=== PATIENT | female | born 1945 | race Caucasian/White ===

== ENCOUNTER → 2019-09-06 10:00 | Outpatient (BNVA) | payer MEDICARE, OTHER, SELFPAY | PROVIDERS: Family Provider Family Medicine; PCP Family Medicine; Visit Provider Nurse Practitioner Family | DX: Z20.828 Contact with and (suspected) exposure to other viral communicable diseases (principal); R68.89 Other general symptoms and signs; W57.XXXA Bitten or stung by nonvenomous insect and other nonvenomous arthropods, initial encounter | CPT/HCPCS: 87400; 87635 ==

== ENCOUNTER → 2020-03-20 14:00 | Outpatient (BNVA) | payer MEDICARE, OTHER, SELFPAY | PROVIDERS: Family Provider Family Medicine; PCP Family Medicine; Visit Provider Family Medicine | DX: E03.9 Hypothyroidism, unspecified (principal); G43.909 Migraine, unspecified, not intractable, without status migrainosus; F33.0 Major depressive disorder, recurrent, mild; R41.840 Attention and concentration deficit; Z13.6 Encounter for screening for cardiovascular disorders; Z13.1 Encounter for screening for diabetes mellitus | CPT/HCPCS: 80053; 80061; 84439; 84443; 84481 ==

== ENCOUNTER 2020-08-05 02:53 | Emergency (ER) | payer MEDICARE, OTHER, SELFPAY ==
[2020-08-05 03:20] VITALS: BP 153/90; PULSE 69; RESP 16; TEMP 36.5; O2SAT 96; BMI 36.0
--- NOTE | 2020-08-05 03:56 | XRR_ITS ---
PROCEDURE INFORMATION: Exam: XR Chest Exam date and time: 08/05/2020 4:39 AM Age: 75 years old Clinical indication: Left-sided chest pain; Patient HX: C/O L sided chest/rib pain; Additional info: Left side cp TECHNIQUE: Imaging protocol: XR of the chest. Views: 1 view. COMPARISON: No relevant prior studies available. FINDINGS: Lungs: Unremarkable. No consolidation. Pleural spaces: Unremarkable. No pleural effusion. No pneumothorax. Heart/Mediastinum: Unremarkable. No cardiomegaly. Bones/joints: Unremarkable. XR/XR chest 1V portable [id number] IMPRESSION: No acute findings.
--- NOTE | 2020-08-05 03:58 | ECG_ITS ---
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
[2020-08-05 05:22] VITALS: BP 166/87; PULSE 82; RESP 18; TEMP 36.6; O2SAT 97
[2020-08-05 05:25] LABS: Basophils # 0.1 10^3/uL (0.0-0.1); Basophils % 0.7 %; Eosinophils # 0.1 10^3/uL (0.0-0.8); Eosinophils % 0.9 %; Hematocrit 43.7 % (37.0-47.0); Hemoglobin 14.3 g/dL (11.5-15.3); Lymphocytes # 4.4 10^3/uL (0.8-4.8); Lymphocytes % 40.4 %; Mean Corpuscular HGB Conc 32.7 g/dL (30.0-36.0); Mean Corpuscular Hemoglobin 30.4 pg (28.0-34.0); Mean Platelet Volume 10.4 fL (7.4-10.4); Monocytes # 0.9 10^3/uL (0.2-0.9); Monocytes % 8.3 %; Neutrophils # 5.36 10^3/uL (1.8-7.7); Neutrophils % 49.5 %; Nucleated Red Blood Cells % 0 %; Platelet Count 394 10^3/cmm (130-400); Red Cell Distribution Width 13.1 % (12.1-15.1); White Blood Count 10.8 10^3/uL (4.0-10.0)
[2020-08-05 05:45] LABS: Troponin(5th) Baseline 6 ng/L (0-10)
[2020-08-05 05:50] LABS: Alanine Aminotransferase 13 U/L (0-33); Albumin Level 4.1 g/dL (3.5-5.2); Alkaline Phosphatase 103 IU/L (35-105); Aspartate Amino Transferase 22 U/L (0-32); Blood Urea Nitrogen 16 mg/dL (8-23); Calcium 8.8 mg/dL (8.5-10.5); Carbon Dioxide 25 mmol/L (22-29); Chloride 105 mmol/L (98-107); Globulin 2.7 g/dL (1.3-4.6); Glucose 82 mg/dL (65-115); NT Pro B Type Natriuretic Pept 183 pg/mL (0-125); Osmolality Calculated 292 mOsm/kg (285-295); Sodium 141 mmol/L (136-145); Total Bilirubin 0.5 mg/dL (0.15-1.2); Total Protein 6.8 g/dL (6.6-8.7)
[2020-08-05 05:53] LABS: Anion Gap 15.3 (5-19); Potassium 4.3 mmol/L (3.5-5.1)
--- NOTE | 2020-08-05 05:58 | ECG_ITS ---
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
[2020-08-05 06:10] LABS: D Dimer 0.42 ug/mIFEU (0-0.59)
--- NOTE | 2020-08-05 06:28 | ED_ITS ---
HPI - General Adult General: Chief complaint: General Medical Stated complaint: LEFT SIDED PAIN UNDER RIBS Time Seen by Provider: 08/05/20 03:34 History of Present Illness: HPI narrative: 75-year-old female has had pain in the left side of her rib cage for the last 10 days or so. She was seen by her PCP and placed on steroids and muscle relaxers. These seem to not help. She also had a deep tissue massage that did not seem to help either. She is not short of breath, but has pain when she takes a deep breath. Her pain is positional. She feels it worse when she lies down at night to try to sleep. She states the pain is very episodic as well. Onset (ago): day(s) (10) Location: chest Radiation: back Severity: moderate Quality: sharp Pain Consistency: intermittent Relieving factors: none Exacerbating factors: movement Associated symptoms: Reports chest pain and cough; Deny confusion, dyspnea, fevers/chills, nausea, rash, palpitations, short of breath or vomiting Review of Systems Const: Denies: fever(s) Eyes: Denies: change in vision Card: Reports: chest pain; Denies: palpitations Resp: Reports: non-productive cough; Denies: dyspnea GI: Denies: nausea or vomiting Skin/Breast: Denies: rash Neuro: Denies: confusion PFSH ED PFSH: Medical History Depression Migraines SVT (supraventricular tachycardia) Varicose veins of bilateral lower extremities with other complications Surgical History H/O oral surgery S/P hysterectomy S/P tonsillectomy Family History Other CHF (congestive heart failure) Dementia Depression Stroke Social History Smoking and tobacco status: former smoker Quit status (tobacco): has quit using tobacco Second hand smoke exposure: No Alcohol intake: never Lives independently: Yes Household members: family Housing: House service: No Current gender identity: Female Special brent needs: No Female Reproductive History: Spontaneous abortions: No Physical Exam Const: GENERAL APPEARANCE: well developed ORIENTATION/CONSCIOUSNESS: Yes oriented to person, Yes oriented to place and Yes oriented to time HENMT: COMMON NORMALS: normocephalic, external ears normal and Normal external nose present HEAD & SCALP: normocephalic FACE & SINUS: normal facial exam NOSE: Normal external nose present and No nasal discharge present EXTERNAL EAR: Yes external ears normal MOUTH: tongue normal TEETH & GINGIVA: no abnormal tooth and associated gingiva THROAT: posterior oropharynx normal; no peritonsillar mass Eye: COMMON NORMALS: Equal, round and reactive pupils present, EOMs intact bilaterally and conjunctivae normal EYELID: eyelids normal CONJUNCTIVA: Y es conjunctivae normal PUPIL: Yes Equal, round and reactive pupils present Neck/C-Spine: GENERAL: No tracheal deviation CERVICAL SPINE: No Cervical spine tenderness Chest: COMMONS NORMALS: normal inspection of the chest CHEST: Yes tenderness (focal inferior rib 9-10 on left) Resp: COMMON NORMALS: clear to auscultation bilaterally EFFORT & INSPECTION: No tachypneic, No respiratory distress, No retractions, No uses accessory muscles and No tracheal deviation AUSCULTATION: clear to auscultation bilaterally, no rhonchi, no wheezes and lung sounds not diminished Cardio: COMMON NORMALS: regular rate and regular rhythm RATE: regular rate RHYTHM: regular rhythm HEART SOUNDS: no murmurs PERIPHERAL PULSES: radial pulses present GI: INSPECTION: No abdominal distension AUSCULTATION: No Hyperactive bowel sounds present and No Hypoactive bowel sounds present PALPATION: No Guarding due to palpation present (GI) and No Rigid due to palpation PERCUSSION: no dullness to percussion and no tympanic to percussion Neuro: SENSORIUM/ORIENTATION: Yes oriented to person, Yes oriented to place and Yes oriented to time Psych: COMMON NORMALS: mental status grossly normal Skin: COMMON NORMALS: no rashes or lesions noted GENERAL SKIN EXAM: no rashes or lesions noted Course Vital Signs: Vital signs: Vital Signs Temperature 97.9 F 08/05/20 05:22 Pulse Rate 82 08/05/20 05:22 Respiratory Rate 18 08/05/20 05:22 Blood Pressure 166/87 08/05/20 05:22 Pulse Oximetry 97 08/05/20 05:22 MDM - General Adult [facility] Narrative: Medical decision making narrative: Hemoglobin 14.3. White blood cell count 10.8 without shift. Troponin is negative. D-dimer is negative. Chest x-ray is normal. We will treat as costochondritis. She already has steroids at home. Will prescribe mild opiate pain reliever in case she needs it to help her rest. She will continue her other medications. Lab Data: Labs: Lab Results 08/05/20 08/05/20 08/05/20 Range/Units 04:55 04:55 04:55 WBC 10.8 H (4.0-10.0) 10^3/ uL RBC 4.70 (4.1-5.3) 10^6/u L Hgb 14.3 (11.5-15.3) g/dL Hct 43.7 (37.0-47.0) % MCV 93.0 (81-99) fL MCH 30.4 (28.0-34.0) pg MCHC 32.7 (30.0-36.0) g/dL RDW 13.1 (12.1-15.1) % Plt Count 394 (130-400) 10^3/c mm MPV 10.4 (7.4-10.4) fL Neut % (Auto) 49.5 % Lymph % (Auto) 40.4 % Hunt % (Auto) 8.3 % Eos % (Auto) 0.9 % Baso % (Auto) 0.7 % Neut # (Auto) 5.36 (1.8-7.7) 10^3/u L Lymph # (Auto) 4.4 (0.8-4.8) 10^3/u L Hunt # (Auto) 0.9 (0.2-0.9) 10^3/u L Eos # (Auto) 0.1 (0.0-0.8) 10^3/u L Baso # (Auto) 0.1 (0.0-0.1) 10^3/u L Nucleated RBC % (a uto) 0 % Nucleated RBCs # 0.0 /100WBC D-Dimer 0.42 (0-0.59) ug/mIFE U Sodium 141 (136-145) mmol/L Potassium 4.3 (3.5-5.1) mmol/L Chloride 105 (98-107) mmol/L Carbon Dioxide 25 (22-29) mmol/L Anion Gap 15.3 (5-19) BUN 16 (8-23) mg/dL Creatinine 0.7 (0.5-0.9) mg/dL GFR Calculation Not Reportable Glucose 82 (65-115) mg/dL Calculated Osmolal ity 292 (285-295) mOsm/k g Calcium 8.8 (8.5-10.5) mg/dL Total Bilirubin 0.5 (0.15-1.2) mg/dL AST 22 (0-32) U/L ALT 13 (0-33) U/L Alkaline Phosphata se 103 (35-105) IU/L Troponin T Baselin e (0-10) ng/L NT-Pro-B Natriuret Pep 183 H (0-125) pg/mL Total Protein 6.8 (6.6-8.7) g/dL Albumin 4.1 (3.5-5.2) g/dL Globulin 2.7 (1.3-4.6) g/dL 08/05/20 Range/Units 04:55 WBC (4.0-10.0) 10^3/ uL RBC (4.1-5.3) 10^6/u L Hgb (11.5-15.3) g/dL Hct (37.0-47.0) % MCV (81-99) fL MCH (28.0-34.0) pg MCHC (30.0-36.0) g/dL RDW (12.1-15.1) % Plt Count (130-400) 10^3/c mm MPV (7.4-10.4) fL Neut % (Auto) % Lymph % (Auto) % Hunt % (Auto) % Eos % (Auto) % Baso % (Auto) % Neut # (Auto) (1.8-7.7) 10^3/u L Lymph # (Auto) (0.8-4.8) 10^3/u L Hunt # (Auto) (0.2-0.9) 10^3/u L Eos # (Auto) (0.0-0.8) 10^3/u L Baso # (Auto) (0.0-0.1) 10^3/u L Nucleated RBC % (a uto) % Nucleated RBCs # /100WBC D-Dimer (0-0.59) ug/mIFE U Sodium (136-145) mmol/L Potassium (3.5-5.1) mmol/L Chloride (98-107) mmol/L Carbon Dioxide (22-29) mmol/L Anion Gap (5-19) BUN (8-23) mg/dL Creatinine (0.5-0.9) mg/dL GFR Calculation Glucose (65-115) mg/dL Calculated Osmolal ity (285-295) mOsm/k g Calcium (8.5-10.5) mg/dL Total Bilirubin (0.15-1.2) mg/dL AST (0-32) U/L ALT (0-33) U/L Alkaline Phosphata se (35-105) IU/L Troponin T Baselin e 6 (0-10) ng/L NT-Pro-B Natriuret Pep (0-125) pg/mL Total Protein (6.6-8.7) g/dL Albumin (3.5-5.2) g/dL Globulin (1.3-4.6) g/dL Discharge Plan Discharge Patient Disposition: Home Clinical Impression: Acute costochondritis Condition: Stable Prescriptions: New hydrocodone-acetaminophen 5-325 mg tablet 1 tab PO Q8H PRN (Reason: pain) Qty: 10 RF: 0 No Action levothyroxine 50 mcg tablet 50 mcg PO DAILY 90 Days Qty: 90 RF: 3 bupropion HCl [Wellbutrin XL] 150 mg tablet extended release 24 hr 150 mg PO QAM 90 Days Qty: 90 RF: 3 sumatriptan succinate [Imitrex] 50 mg tablet 50 mg PO Q2H PRN (Reason: migraine headache) Qty: 9 RF: 2 cetirizine [Zyrtec] 10 mg tablet 10 mg PO DAILY RF: 0 aspirin 81 mg tablet,chewable 81 mg PO BID RF: 0 prednisone 20 mg tablet 20 mg PO DAILY 5 Days Qty: 5 RF: 0 methocarbamol [Robaxin-750] 750 mg tablet 750 mg PO TID 6 Days Qty: 18 RF: 0 Discharge Orders: Discharge ED (Routine); Ordered 08/05/20 Ordered By: Jonh Alcantar Referrals: Kari Lr DO [Primary Care Provider] - (thursday as scheduled) Discharge Diet: Usual diet Discharge Activity: Increase activity as tolerated Patient Instructions: Costochondritis (ED), Opioid Safety Activity Restrictions/Additional Instructions: Return for worsening pain despite treatment, fever greater than 100, cough, sputum production, significant shortness of breath, any other concerns. Coding Level of Care Code ED Etcher Apprentice for Chg 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
[2020-08-05 06:56] VITALS: BP 166/87; PULSE 82; RESP 18; TEMP 36.6; O2SAT 97
== END 2020-08-05 06:56 | disposition home or self-care (01) ==
PROVIDERS: Emergency Provider Emergency Medicine; PCP Family Medicine
DX: M94.0 Chondrocostal junction syndrome [Tietze] (principal); Z79.82 Long term (current) use of aspirin; Z87.891 Personal history of nicotine dependence; R07.9 Chest pain, unspecified
CPT/HCPCS: 36415; 71045; 80053; 83880; 84484; 85025; 85378; 93005; 99283

== ENCOUNTER 2020-08-20 04:39 | Emergency (ER) | payer MEDICARE, OTHER, SELFPAY ==
--- NOTE | 2020-08-20 04:50 | XRR_ITS ---
PROCEDURE INFORMATION: Exam: XR Chest Exam date and time: 08/20/2020 4:52 AM Age: 75 years old Clinical indication: Pain; Left-sided; Additional info: Cp TECHNIQUE: Imaging protocol: XR of the chest. Views: 1 view. COMPARISON: CR XR chest 1V portable [id number] 08/05/2020 4:29 AM FINDINGS: Lungs: Unremarkable. No consolidation. Pleural spaces: Unremarkable. No pleural effusion. No pneumothorax. Heart/Mediastinum: Unremarkable. No cardiomegaly. Bones/joints: Unremarkable. XR/XR chest 1V portable [id number] IMPRESSION: No acute findings.
[2020-08-20 04:51] VITALS: BP 165/99; PULSE 71; RESP 18; TEMP 36.7; O2SAT 96; BMI 36.0
--- NOTE | 2020-08-20 04:51 | ECG_ITS ---
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 Measurements Intervals [place] Rate: 74 P: 14 SC: 182 QRS: 27 QRSD: 96 T: 9 QT: 400 QTc: 445 Interpretive Statements SINUS RHYTHM LOW QRS VOLTAGE IN PRECORDIAL LEADS [QRS DEFLECTION < 1.0 mV IN CHEST LEADS] SEPTAL MYOCARDIAL INFARCTION [40+ ms Q WAVE IN V1/V2], PROBABLY OLD POSSIBLE INFERIOR MYOCARDIAL INFARCTION [30 ms Q WAVE IN II/aVF], PROBABLY OLD Compared to ECG 08/05/2020 06:14:10 Low QRS voltage now present Myocardial infarct finding now present Electronically Signed On 08-21-2020 0:37:51 CDT by Jose Daniel Del Angel M.D. [id number] f
--- NOTE | 2020-08-20 04:57 | ED_ITS ---
HPI - Chest Pain General: Chief Complaint: Chest Pain Stated Complaint: CP Time Seen by Provider: 08/20/20 04:49 History of Present Illness: HPI narrative: 75-year-old female presents with 4 hours of chest discomfort. She was seen 2 weeks ago for similar complaint. At that time, she was found to have a normal troponin, negative D-dimer her chest x-ray was negative at that point as well. She is nauseated with the pain. No position seems to improve it. Her belly is not overly tender, neither is her chest. She is not overly short of breath with it. On further questioning she has multiple other complaints such as not being able to sleep for the past couple of weeks, pain under her left ribs which is on and off for the past 2 to 3 weeks, sore ankles, queasiness at times such as at latter day yesterday morning, etc. MD complaint: chest pain Pertinent past history: other Onset (ago): hour(s) (4) Prior episodes: Yes Onset: during rest and awoke with symptoms Pain location: left chest Pain radiation: none Relieving factors: nothing Exacerbating factors: nothing Associated symptoms: Reports nausea and palpitations; Deny abdominal pain, diaphoresis, dyspnea, fever(s) or vomiting Review of Systems Const: Denies: fever(s) or diaphoresis ENMT: Denies: throat pain Card: Reports: chest pain and palpitations Resp: Denies: dyspnea GI: Reports: nausea; Denies: abdominal pain or vomiting PFS ED PFSH: Medical History Depression Migraines SVT (supraventricular tachycardia) Varicose veins of bilateral lower extremities with other complications Surgical History H/O oral surgery S/P hysterectomy S/P tonsillectomy Family History Other CHF (congestive heart failure) Dementia Depression Stroke Social History Smoking and tobacco status: former smoker Quit status (tobacco): has quit using tobacco Second hand smoke exposure: No Alcohol intake: never Lives independently: Yes Household members: family Housing: House service: No Current gender identity: Female Special brent needs: No Female Reproductive History: Spontaneous abortions: No Physical Exam Const: GENERAL APPEARANCE: well developed ORIENTATION/CONSCIOUSNESS: Yes oriented to person, Yes oriented to place and Yes oriented to time HENMT: COMMON NORMALS: normocephalic, external ears normal and Normal external nose present HEAD & SCALP: normocephalic FACE & SINUS: normal facial exam NOSE: Normal external nose present and No nasal discharge present EXTERNAL EAR: Yes external ears normal Eye: COMMON NORMALS: Equal, round and reactive pupils present, EOMs intact bilaterally and conjunctivae normal EYELID: eyelids normal CONJUNCTIVA: Yes conjunctivae normal PUPIL: Yes Equal, round and reactive pupils present Neck/C-Spine: GENERAL: No tracheal deviation Chest: COMMONS NORMALS: normal inspection of the chest CHEST: No tenderness Resp: COMMON NORMALS: clear to auscultation bilaterally EFFORT & INSPECTION: No tachypneic, No respiratory distress, No retractions, No uses accessory muscles and No tracheal deviation AUSCULTATION: clear to auscultation bilaterally, no rhonchi, no wheezes and lung sounds not diminished Cardio: COMMON NORMALS: regular rate and regular rhythm RATE: regular rate RHYTHM: regular rhythm HEART SOUNDS: no murmurs PERIPHERAL PULSES: radial pulses present GI: INSPECTION: No abdominal distension AUSCULTATION: No Hyperactive bowel sounds present and No Hypoactive bowel sounds present PALPATION: No Guarding due to palpation present (GI) and No Rigid due to palpation PERCUSSION: no dullness to percussion and no tympanic to percussion Neuro: SENSORIUM/ORIENTATION: Yes oriented to person, Yes oriented to place and Yes oriented to time Psych: COMMON NORMALS: mental status grossly normal Skin: COMMON NORMALS: no rashes or lesions noted GENERAL SKIN EXAM: no rashes or lesions noted Course Vital Signs: Vital signs: Vital Signs Temperature 98.1 F 08/20/20 04:51 Pulse Rate 74 08/20/20 05:56 Respiratory Rate 23 H 08/20/20 05:56 Blood Pressure 148/107 08/20/20 05:56 Pulse Oximetry 97 08/20/20 05:56 MDM - Chest Pain MDM Narrative: Medical decision making narrative: This lady has a normal exam. Her pain is not reproducible her EKG shows a sinus rhythm with normal axis and intervals. Her rate is 75. There is no change from 2 weeks ago. There are no acute ST changes. Her chest x-ray is negative. Labs are normal, troponin is 7. It was 6 2 weeks ago. She has had this pain more than 4 hours this evening. Her lipase is normal. GI cocktail seemed to relieve her pain Lab Data: Labs: Lab Results 08/20/20 08/20/20 08/20/20 Range/Units 05:00 05:00 05:00 WBC 8.5 (4.0-10.0) 10^3/ uL RBC 4.60 (4.1-5.3) 10^6/u L Hgb 13.9 (11.5-15.3) g/dL Hct 42.1 (37.0-47.0) % MCV 91.5 (81-99) fL MCH 30.2 (28.0-34.0) pg MCHC 33.0 (30.0-36.0) g/dL RDW 12.8 (12.1-15.1) % Plt Count 340 (130-400) 10^3/c mm MPV 10.4 (7.4-10.4) fL Neut % (Auto) 54.6 % Lymph % (Auto) 32.7 % Major % (Auto) 8.3 % Eos % (Auto) 3.5 % Baso % (Auto) 0.8 % Neut # (Auto) 4.66 (1.8-7.7) 10^3/u L Lymph # (Auto) 2.8 (0.8-4.8) 10^3/u L Major # (Auto) 0.7 (0.2-0.9) 10^3/u L Eos # (Auto) 0.3 (0.0-0.8) 10^3/u L Baso # (Auto) 0.1 (0.0-0.1) 10^3/u L Nucleated RBC % (a uto) 0 % Nucleated RBCs # 0.0 /100WBC Sodium 135 L (136-145) mmol/L Potassium 4.6 (3.5-5.1) mmol/L Chloride 102 (98-107) mmol/L Carbon Dioxide 24 (22-29) mmol/L Anion Gap 13.6 (5-19) BUN 15 (8-23) mg/dL Creatinine 0.9 (0.5-0.9) mg/dL GFR Calculation Not Reportable Glucose 85 (65-115) mg/dL Calculated Osmolal ity 280 L (285-295) mOsm/k g Calcium 9.0 (8.5-10.5) mg/dL Total Bilirubin 0.7 (0.15-1.2) mg/dL AST 29 (0-32) U/L ALT 14 (0-33) U/L Alkaline Phosphata se 97 (35-105) IU/L Creatine Kinase 115 (26-192) U/L Troponin T Baselin e 8 (0-10) ng/L NT-Pro-B Natriuret Pep 58 (0-125) pg/mL Total Protein 6.5 L (6.6-8.7) g/dL Albumin 4.0 (3.5-5.2) g/dL Globulin 2.5 (1.3-4.6) g/dL Lipase 34 (13-60) U/L Discharge Plan Discharge Patient Disposition: Home Clinical Impression: Chest pain Qualifiers: Chest pain type: other chest pain Qualified Code(s): R07.89 - Other chest pain Gastritis Qualifiers: Gastritis type: unspecified gastritis Chronicity: acute Gastritis bleeding: without bleeding Qualified Code(s): K29.00 - Acute gastritis without bleeding Condition: Stable Prescriptions: New Prevacid 30 mg capsule,delayed release(DR/EC) 30 mg PO DAILY Qty: 30 RF: 0 No Action levothyroxine 50 mcg tablet 50 mcg PO DAILY 90 Days Qty: 90 RF: 3 bupropion HCl [Wellbutrin XL] 150 mg tablet extended release 24 hr 150 mg PO QAM 90 Days Qty: 90 RF: 3 sumatriptan succinate [Imitrex] 50 mg tablet 50 mg PO Q2H PRN (Reason: migraine headache) Qty: 9 RF: 2 cetirizine [Zyrtec] 10 mg tablet 10 mg PO DAILY RF: 0 aspirin 81 mg tablet,chewable 81 mg PO BID RF: 0 diclofenac sodium 1 % gel 4 g topical QID Qty: 100 RF: 1 hydrocodone-acetaminophen 5-325 mg tablet 1 tab PO BID PRN (Reason: pain) 7 Days Qty: 14 RF: 0 methocarbamol [Robaxin-750] 750 mg tablet 750 mg PO TID 6 Days Qty: 18 RF: 0 meloxicam 15 mg tablet 15 mg PO DAILY 30 Days Qty: 30 RF: 1 Discharge Orders: Discharge ED (Routine); Ordered 08/20/20 Ordered By: Jonh Alcantar Referrals: Kari Lr DO [Primary Care Provider] - 1-3 days Discharge Diet: Advance as tolerated Discharge Activity: Increase activity as tolerated Patient Instructions: Chest Pain (ED), Gastritis (ED) Activity Restrictions/Additional Instructions: Return for vomiting liquids or medications, worsening pain despite treatment, shortness of breath, other concerning symptoms. Follow-up with your doctor next week. Coding Level of Care Code ED Harpsichord Maker for Chg 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
[2020-08-20 05:09] LABS: Basophils # 0.1 10^3/uL (0.0-0.1); Basophils % 0.8 %; Eosinophils # 0.3 10^3/uL (0.0-0.8); Eosinophils % 3.5 %; Hematocrit 42.1 % (37.0-47.0); Hemoglobin 13.9 g/dL (11.5-15.3); Lymphocytes # 2.8 10^3/uL (0.8-4.8); Lymphocytes % 32.7 %; Mean Corpuscular Hemoglobin 30.2 pg (28.0-34.0); Mean Corpuscular Volume 91.5 fL (81-99); Mean Platelet Volume 10.4 fL (7.4-10.4); Monocytes # 0.7 10^3/uL (0.2-0.9); Monocytes % 8.3 %; Neutrophils # 4.66 10^3/uL (1.8-7.7); Neutrophils % 54.6 %; Nucleated Red Blood Cells % 0 %; Platelet Count 340 10^3/cmm (130-400); Red Cell Distribution Width 12.8 % (12.1-15.1); White Blood Count 8.5 10^3/uL (4.0-10.0)
[2020-08-20] MEDS: lidocaine 2% viscous 15 ML, aluminum-mag hydrox-simethicon 30 ML, sucralfate oral liq 1 GM PO (05:33)
[2020-08-20 05:36] LABS: Troponin(5th) Baseline 8 ng/L (0-10)
[2020-08-20 05:41] LABS: Alanine Aminotransferase 14 U/L (0-33); Alkaline Phosphatase 97 IU/L (35-105); Blood Urea Nitrogen 15 mg/dL (8-23); Carbon Dioxide 24 mmol/L (22-29); Chloride 102 mmol/L (98-107); Creatine Phosphokinase 115 U/L (26-192); Globulin 2.5 g/dL (1.3-4.6); Glucose 85 mg/dL (65-115); Lipase 34 U/L (13-60); NT Pro B Type Natriuretic Pept 58 pg/mL (0-125); Osmolality Calculated 280 mOsm/kg (285-295); Sodium 135 mmol/L (136-145); Total Bilirubin 0.7 mg/dL (0.15-1.2); Total Protein 6.5 g/dL (6.6-8.7)
[2020-08-20 05:43] LABS: Anion Gap 13.6 (5-19); Aspartate Amino Transferase 29 U/L (0-32); Potassium 4.6 mmol/L (3.5-5.1)
[2020-08-20 05:56] VITALS: BP 148/107; PULSE 74; RESP 23; O2SAT 97
[2020-08-20 06:27] VITALS: BP 155/98; PULSE 69; RESP 23; O2SAT 97
== END 2020-08-20 06:27 | disposition home or self-care (01) ==
PROVIDERS: Emergency Provider Emergency Medicine; PCP Family Medicine
DX: R07.89 Other chest pain (principal); K29.00 Acute gastritis without bleeding; Z79.82 Long term (current) use of aspirin; Z87.891 Personal history of nicotine dependence
CPT/HCPCS: 71045; 80053; 82550; 83690; 83880; 84484; 85025; 93005; 99284

== ENCOUNTER 2020-08-25 17:33 | Emergency (ER) | payer MEDICARE, OTHER, SELFPAY ==
[2020-08-25 17:44] VITALS: PULSE 90; RESP 16; TEMP 37.1; O2SAT 96; BMI 33.9
--- NOTE | 2020-08-25 17:53 | CTR_ITS ---
PROCEDURE INFORMATION: Exam: CT Abdomen And Pelvis Without Contrast Exam date and time: 08/25/2020 6:18 PM Age: 75 years old Clinical indication: Abdominal pain; Localized; Prior surgery; Surgery date: 6+ months; Surgery type: Hyst; Patient HX: C/O intermittent upper abd pain x 1 month worse after eating TECHNIQUE: Imaging protocol: Computed tomography of the abdomen and pelvis without contrast. Radiation optimization: All CT scans at this facility use at least one of these dose optimization techniques: automated exposure control; mA and/or kV adjustment per patient size (includes targeted exams where dose is matched to clinical indication); or iterative reconstruction. COMPARISON: CR Upper GI w/ Air* [id number] 10/26/2018 9:17 AM RADIATION DOSE METRICS: Total DLP (mGy-cm): 1647.97 FINDINGS: Liver: The liver is homogeneous in density except for small area of hypodensity adjacent to the ligamentum teres compatible with focal fatty infiltration or transient vascular variant. Gallbladder and bile ducts: Normal. No calcified stones. No ductal dilation. Pancreas: The pancreas is displaced but separate from the mass. The pancreas is unremarkable. Spleen: The mass is separate from the spleen. Adrenal glands: The right adrenal gland is normal. Kidneys and ureters: There is no evidence of hydronephrosis. There is no evidence of renal calcifications. The inferior aspect of the mass is contiguous with the superior pole left kidney and coronal images demonstrate the superior pole of the left kidney to be flattened and deformed by the mass. There is lack of a definite fat plane between the entire mass in the left kidney. There is no evidence of hydronephrosis. There is no evidence of renal calcifications. Stomach and bowel: There is no evidence of intestinal perforation or obstruction. There is moderately excessive colonic stool content. There is no evidence of colitis/diverticulitis. Appendix: No evidence of appendicitis. Intraperitoneal space: There is haziness of the fat adjacent to the mass that may reflect mild edema or desmoplastic type changes. 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 Contiguous extension of the mass into the retrocrural fat and in the left periaortic retroperitoneum is noted. This upper left retroperitoneal mass may secondarily involve the left kidney but is not likely to arise in the left kidney. Vasculature: Unremarkable.No abdominal aortic aneurysm. Lymph nodes: Additional adenopathy is identified in the mesentery including a 1.5 cm short axis lymph node image 43. No pathologic adenopathy is identified in the pelvis or groin. Numerous subcentimeter lymph nodes are noted in the lower retroperitoneum. Urinary bladder: The bladder is decompressed. Reproductive: There has been a hysterectomy. Bones/joints: There are shhd-so-cidnpjhm degenerative changes in the spine and pelvis. No bony destructive lesion or fracture is identified. Soft tissues: The posterior right diaphragm appears thickened and lobulated adjacent to the mass concerning for contiguous involvement of the left diaphragm. CT/CT abdomen pelvis wo con [id number] IMPRESSION: 1. 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 2. This upper left retroperitoneal mass may secondarily involve the left kidney but is not likely to arise in the left kidney. Abdomen MRI may be helpful for further evaluation. 3. The posterior right diaphragm appears thickened and lobulated adjacent to the mass concerning for contiguous involvement of the left diaphragm. 4. Adenopathy is also noted in the retroperitoneum and mesentery. COMMENTS: Consistent with the [employer]'s Incidental Findings Committee white paper (J Am Deo Radiol 2018): Any incidental renal lesion less than 1 cm or classified as too small to characterize, or any incidental cystic renal lesion characterized as simple-appearing, is likely benign. No follow-up imaging is recommended for these lesions per consensus recommendations based on imaging criteria. Radiation Dose CTDIVOL = (mGy): DLP = 1647.97 (mGy-cm)
--- NOTE | 2020-08-25 18:03 | W.ED.ABDPA2 ---
HPI - Abdominal Pain General: Chief Complaint: Abdominal Pain Stated Complaint: abd pain Time Seen by Provider: 08/25/20 17:52 Source: patient Mode of arrival: ambulatory Limitations: no limitations History of Present Illness: HPI narrative: 75-year-old female states she has been having abdominal pain for the last week. She states that it has been a pain that happened suddenly after eating then goes away roughly 30 minutes to an hour. States she has no pain if she does not eat. She denies any pain currently. She had no vomiting. She denies any fevers. She denies any worsening improving factors. MD elicited complaint: abdominal pain Associated Symptoms: Denies chills, dysuria and fever(s) Review of Systems Const: Denies: fever(s), chills, body aches or change in appetite Eyes: Denies: blurry vision or eye discomfort ENMT: Denies: throat pain or dental pain Card: Denies: chest pain Resp: Denies: dyspnea GI: Reports: abdominal pain : Denies: dysuria Musc: Denies: neck pain or back pain Skin/Breast: Denies: rash Neuro: Denies: headache(s) Psych: Denies: depression Paul/Lymph: Denies: easy bruising All/Imm: Denies: urticaria PFSH ED PFSH: Medical History Depression Migraines SVT (supraventricular tachycardia) Varicose veins of bilateral lower extremities with other complications Surgical History H/O oral surgery S/P hysterectomy S/P tonsillectomy Family History Other CHF (congestive heart failure) Dementia Depression Stroke Social History Smoking and tobacco status: former smoker Quit status (tobacco): has quit using tobacco Second hand smoke exposure: No Alcohol intake: never Lives independently: Yes Household members: family Housing: House service: No Current gender identity: Female Special brent needs: No Female Reproductive History: Spontaneous abortions: No Physical Exam Const: COMMON NORMALS: no acute distress, patient oriented x3 and healthy appearing HENMT: COMMON NORMALS: normocephalic and atraumatic HEAD & SCALP: normocephalic and atraumatic Eye: COMMON NORMALS: Equal, round and reactive pupils present and EOMs intact bilaterally PUPIL: Yes Equal, round and reactive pupils present Neck/C-Spine: COMMON NORMALS: full ROM and supple Chest: COMMONS NORMALS: normal inspection of the chest and normal palpation of entire chest wall Resp: COMMON NORMALS: normal respiratory effort, No retractions, No use of accessory muscles and clear to auscultation bilaterally AUSCULTATION: clear to auscultation bilaterally Cardio: COMMON NORMALS: regular rate, regular rhythm and No murmurs present (Cardio) RATE: regular rate RHYTHM: regular rhythm GI: COMMON NORMALS: Normal to inspection, nondistended, normoactive bowel sounds present, Soft to palpation, non-tender and no masses PALPATION: Yes Soft to palpation Extremity: COMMON NORMALS: normal to inspection and full ROM Neuro: COMMON NORMALS: patient oriented x3, moves all extremities and no focal motor deficits Psych: COMMON NORMALS: mental status grossly normal, Normal thought process present and cooperative THOUGHT PROCESS: Normal thought process present Skin: COMMON NORMALS: no rashes or lesions noted and no wounds GENERAL SKIN EXAM: no rashes or lesions noted Course Vital Signs: Vital signs: Vital Signs Temperature 98.8 F 08/25/20 17:44 Pulse Rate 72 08/25/20 19:27 Respiratory Rate 17 08/25/20 19:27 Blood Pressure 180/84 08/25/20 19:27 Pulse Oximetry 99 08/25/20 19:27 MDM - Abdominal Pain MDM Narrative: Medical decision making narrative: Patient presents here with abdominal pain and CT did show a mass it is possible lymphoma. Believe she is also likely having a gastritis as well. I am to have her stop her Prevacid and start Protonix and Carafate. Will prescribe her pain meds as well. We will have her follow-up closely with oncology for this mass as well. She is return if worsening. Lab Data: Labs: Lab Results 08/25/20 08/25/20 08/25/20 Range/Units 10:20 18:20 18:20 WBC 9.5 (4.0-10.0) 10^3/ uL RBC 4.75 (4.1-5.3) 10^6/u L Hgb 14.2 (11.5-15.3) g/dL Hct 42.9 (37.0-47.0) % MCV 90.3 (81-99) fL MCH 29.9 (28.0-34.0) pg MCHC 33.1 (30.0-36.0) g/dL RDW 12.5 (12.1-15.1) % Plt Count 384 (130-400) 10^3/c mm MPV 10.3 (7.4-10.4) fL Neut % (Auto) 58.4 % Lymph % (Auto) 30.4 % Desha % (Auto) 9.2 % Eos % (Auto) 1.2 % Baso % (Auto) 0.6 % Neut # (Auto) 5.52 (1.8-7.7) 10^3/u L Lymph # (Auto) 2.9 (0.8-4.8) 10^3/u L Desha # (Auto) 0.9 (0.2-0.9) 10^3/u L Eos # (Auto) 0.1 (0.0-0.8) 10^3/u L Baso # (Auto) 0.1 (0.0-0.1) 10^3/u L Nucleated RBC % (a uto) 0 % Nucleated RBCs # 0.0 /100WBC Sodium 135 L (136-145) mmol/L Potassium 4.5 (3.5-5.1) mmol/L Chloride 97 L (98-107) mmol/L Carbon Dioxide 24 (22-29) mmol/L Anion Gap 18.5 (5-19) BUN 10 (8-23) mg/dL Creatinine 0.7 (0.5-0.9) mg/dL GFR Calculation Not Reportable Glucose 79 (65-115) mg/dL Calculated Osmolal ity 278 L (285-295) mOsm/k g Calcium 9.0 (8.5-10.5) mg/dL Total Bilirubin 0.6 (0.15-1.2) mg/dL AST 41 H (0-32) U/L ALT 24 (0-33) U/L Alkaline Phosphata se 88 (35-105) IU/L Total Protein 6.9 (6.6-8.7) g/dL Albumin 4.1 (3.5-5.2) g/dL Globulin 2.8 (1.3-4.6) g/dL Lipase 32 (13-60) U/L Urine Color Yellow (Yellow) Urine Appearance Clear (CLEAR) Urine pH 5 (5-7) Ur Specific Gravit y 1.010 (1.005-1.030) Urine Protein Neg (Negative) Urine Glucose (UA) Norm (Normal) Urine Ketones 2+ H (Negative) Urine Blood Neg (Negative) Urine Nitrate Negative (Negative) Urine Bilirubin Neg (Negative) Urine Urobilinogen Norm (Negative) mg/dL Ur Leukocyte Jeannie ase Trace H (Negative) Urine RBC 0-4 H (0-2) /hpf Urine WBC 0-4 H (0-5) /hpf Ur Squamous Epith Cells 0-4 H (0-5) /hpf Amorphous Sediment Not Reportable Urine Bacteria Trace (NONE) /hpf Imaging Data ^: CT Abd/Pel: Attestation: I personally reviewed and interpreted this imaging study as follows: Radiologist's impression: [address] [address] [address] Scan Report Signed with Addenda Patient: Radha Barajas Unit #: [id number] : 1945 Age/Sex: 75 / F ADM Date: 08/25/20 Loc: ER Room/Bed: Attending Dr: Ordering Provider/Ordering MD: Cristina Garcia MD Date of Service: 08/25/20 Procedure(s): CT abdomen pelvis wo con [id number] Accession Number(s): [id number] Report Number: [id number]/CT abdomen pelvis wo con [id number] THIS REPORT CONTAINS FINDINGS THAT MAY BE CRITICAL TO PATIENT CARE. The findings were verbally communicated via telephone conference with CRISTINA GARCIA at 7:31 PM CDT on 08/25/2020. The findings were acknowledged and understood. Radiation Dose CTDIVOL = (mGy): DLP = 1647.97 (mGy-cm) Addendum Dictated By: Yana Simpson Addendum Signed By: Yana Simpson Signed Date/Time: 05/22/21 1932 Addendum Cosigned By: PROCEDURE INFORMATION: Exam: CT Abdomen And Pelvis Without Contrast Exam date and time: 08/25/2020 6:18 PM Age: 75 years old Clinical indication: Abdominal pain; Localized; Prior surgery; Surgery date: 6+ months; Surgery type: Hyst; Patient HX: C/O intermittent upper abd pain x 1 month worse after eating TECHNIQUE: Imaging protocol: Computed tomography of the abdomen and pelvis without contrast. Radiation optimization: All CT scans at this facility use at least one of these dose optimization techniques: automated exposure control; mA and/or kV adjustment per patient size (includes targeted exams where dose is matched to clinical indication); or iterative reconstruction. COMPARISON: CR Upper GI w/ Air* [id number] 10/26/2018 9:17 AM RADIATION DOSE METRICS: Total DLP (mGy-cm): 1647.97 FINDINGS: Liver: The liver is homogeneous in density except for small area of hypodensity adjacent to the ligamentum teres compatible with focal fatty infiltration or transient vascular variant. Gallbladder and bile ducts: Normal. No calcified stones. No ductal dilation. Pancreas: The pancreas is displaced but separate from the mass. The pancreas is unremarkable. Spleen: The mass is separate from the spleen. Adrenal glands: The right adrenal gland is normal. Kidneys and ureters: There is no evidence of hydronephrosis. There is no evidence of renal calcifications. The inferior aspect of the mass is contiguous with the superior pole left kidney and coronal images demonstrate the superior pole of the left kidney to be flattened and deformed by the mass. There is lack of a definite fat plane between the entire mass in the left kidney. There is no evidence of hydronephrosis. There is no evidence of renal calcifications. Stomach and bowel: There is no evidence of intestinal perforation or obstruction. There is moderately excessive colonic stool content. There is no evidence of colitis/diverticulitis. Appendix: No evidence of appendicitis. Intraperitoneal space: There is haziness of the fat adjacent to the mass that may reflect mild edema or desmoplastic type changes. 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 Contiguous extension of the mass into the retrocrural fat and in the left periaortic retroperitoneum is noted. This upper left retroperitoneal mass may secondarily involve the left kidney but is not likely to arise in the left kidney. Vasculature: Unremarkable.No abdominal aortic aneurysm. Lymph nodes: Additional adenopathy is identified in the mesentery including a 1.5 cm short axis lymph node image 43. No pathologic adenopathy is identified in the pelvis or groin. Numerous subcentimeter lymph nodes are noted in the lower retroperitoneum. Urinary bladder: The bladder is decompressed. Reproductive: There has been a hysterectomy. Bones/joints: There are [id number] degenerative changes in the spine and pelvis. No bony destructive lesion or fracture is identified. Soft tissues: The posterior right diaphragm appears thickened and lobulated adjacent to the mass concerning for contiguous involvement of the left diaphragm. CT/CT abdomen pelvis wo con [id number] IMPRESSION: 1. 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 2. This upper left retroperitoneal mass may secondarily involve the left kidney but is not likely to arise in the left kidney. Abdomen MRI may be helpful for further evaluation. 3. The posterior right diaphragm appears thickened and lobulated adjacent to the mass concerning for contiguous involvement of the left diaphragm. 4. Adenopathy is also noted in the retroperitoneum and mesentery. Discharge Plan Discharge Patient Disposition: Home Clinical Impression: Abdominal mass Abdominal pain Qualifiers: Abdominal location: epigastric Qualified Code(s): R10.13 - Epigastric pain Condition: Stable Prescriptions: New hydrocodone-acetaminophen 5-325 mg tablet 1 tab PO Q6H PRN (Reason: pain) Qty: 14 RF: 0 Protonix 40 mg tablet,delayed release (DR/EC) 40 mg PO DAILY Qty: 60 RF: 0 ondansetron 4 mg tablet,disintegrating 4 mg PO Q6H PRN (Reason: nausea and vomiting) Qty: 14 RF: 0 Carafate 1 gram tablet 1 g PO TID 28 Days Qty: 84 RF: 0 No Action levothyroxine 50 mcg tablet 50 mcg PO DAILY 90 Days Qty: 90 RF: 3 bupropion HCl [Wellbutrin XL] 150 mg tablet extended release 24 hr 150 mg PO QAM 90 Days Qty: 90 RF: 3 sumatriptan succinate [Imitrex] 50 mg tablet 50 mg PO Q2H PRN (Reason: migraine headache) Qty: 9 RF: 2 diphenhydramine HCl [Benadryl] 25 mg capsule 25 mg PO .HS RF: 0 nitroglycerin [Nitrostat] 0.4 mg tablet, sublingual 0.4 mg sublingual Q5M PRN (Reason: chest pain) Qty: 25 RF: 3 cetirizine [Zyrtec] 10 mg tablet 10 mg PO DAILY RF: 0 aspirin 81 mg tablet,chewable 81 mg PO BID RF: 0 diclofenac sodium 1 % gel 4 g topical QID Qty: 100 RF: 1 amlodipine 2.5 mg tablet 2.5 mg PO DAILY Qty: 90 RF: 3 Prevacid 30 mg capsule,delayed release(DR/EC) 30 mg PO DAILY Qty: 30 RF: 0 Discharge Orders: Discharge ED (Routine); Ordered 08/25/20 Ordered By: Cristina Garcia Referrals: Shelton Morrow MD [Hospitalist] - Discharge Diet: Advance as tolerated Discharge Activity: Resume usual activity Patient Instructions: Abdominal Pain (ED), Opioid Safety Coding Level of Care Code 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
[2020-08-25 18:31] LABS: Basophils # 0.1 10^3/uL (0.0-0.1); Basophils % 0.6 %; Eosinophils # 0.1 10^3/uL (0.0-0.8); Eosinophils % 1.2 %; Hematocrit 42.9 % (37.0-47.0); Hemoglobin 14.2 g/dL (11.5-15.3); Lymphocytes # 2.9 10^3/uL (0.8-4.8); Lymphocytes % 30.4 %; Mean Corpuscular HGB Conc 33.1 g/dL (30.0-36.0); Mean Corpuscular Hemoglobin 29.9 pg (28.0-34.0); Mean Corpuscular Volume 90.3 fL (81-99); Mean Platelet Volume 10.3 fL (7.4-10.4); Monocytes # 0.9 10^3/uL (0.2-0.9); Monocytes % 9.2 %; Neutrophils # 5.52 10^3/uL (1.8-7.7); Neutrophils % 58.4 %; Nucleated Red Blood Cells % 0 %; Platelet Count 384 10^3/cmm (130-400); Red Blood Count 4.75 10^6/uL (4.1-5.3); Red Cell Distribution Width 12.5 % (12.1-15.1); White Blood Count 9.5 10^3/uL (4.0-10.0)
[2020-08-25 18:51] LABS: Add Urine Microscopic? YES; Bilirubin Urine Neg (Negative); Blood Urine Neg (Negative); Glucose Urine UA Norm (Normal); Ketones Urine 2+ (Negative); Leukocyte Esterase Urine Trace (Negative); Nitrate Urine Negative (Negative); Protein Urine Neg (Negative); Urine Appearance Clear (CLEAR); Urine Color Yellow (Yellow); Urobilinogen Urine Norm (Negative); pH Urine 5 (5-7)
[2020-08-25 18:53] LABS: Add Urine Culture? No; Bacteria Urine TRACE /hpf; RBC Urine 0-4 /hpf (0-2); Squamous Epithelial Cell Urine 0-4 /hpf (0-5); WBC Urine 0-4 /hpf (0-5)
[2020-08-25 18:59] LABS: Alanine Aminotransferase 24 U/L (0-33); Albumin Level 4.1 g/dL (3.5-5.2); Alkaline Phosphatase 88 IU/L (35-105); Blood Urea Nitrogen 10 mg/dL (8-23); Carbon Dioxide 24 mmol/L (22-29); Chloride 97 mmol/L (98-107); Globulin 2.8 g/dL (1.3-4.6); Glucose 79 mg/dL (65-115); Lipase 32 U/L (13-60); Osmolality Calculated 278 mOsm/kg (285-295); Sodium 135 mmol/L (136-145); Total Bilirubin 0.6 mg/dL (0.15-1.2); Total Protein 6.9 g/dL (6.6-8.7)
[2020-08-25 19:01] LABS: Anion Gap 18.5 (5-19); Aspartate Amino Transferase 41 U/L (0-32); Potassium 4.5 mmol/L (3.5-5.1)
[2020-08-25 19:27] VITALS: BP 180/84; PULSE 72; RESP 17; O2SAT 99
[2020-08-25 19:52] VITALS: BP 158/89; PULSE 88; RESP 20; O2SAT 98
[2020-08-25 20:01] VITALS: BP 158/89; PULSE 84; RESP 18; O2SAT 97
--- NOTE | 2020-08-27 09:48 | DCPLANNER ---
Addendum entered by Mony Rios 10/16/20 14:53: data operations manager called to confirm that [facility]. data operations manager spoke with Marisa, was told that patient was seen on 09.17.20. Original Note: data operations manager had message to refer patient to oncology, for an adrenal mass. data operations manager called Marisa Renner, certified wellness program coordinator for oncology. data operations manager gave clinic patients information. data operations manager was told that patients information would be printed and given to Dr. Morrow for review. Clinic will call patient with appointment information.
== END 2020-08-25 20:03 | disposition home or self-care (01) ==
PROVIDERS: Emergency Provider Emergency Medicine
DX: R10.13 Epigastric pain (principal); R19.00 Intra-abdominal and pelvic swelling, mass and lump, unspecified site; Z79.82 Long term (current) use of aspirin; Z87.891 Personal history of nicotine dependence
CPT/HCPCS: 74176; 80053; 81001; 83690; 85025; 99283

== ENCOUNTER 2020-08-29 09:11 | Emergency (ER) | payer MEDICARE, OTHER, SELFPAY ==
--- NOTE | 2020-08-29 09:20 | W.ED.ABDPA2 ---
Documented by User: ODILIA Carranza 08/29/20 15:20 HPI - Abdominal Pain General: Chief Complaint: Abdominal Pain Stated Complaint: ABD Pain Time Seen by Provider: 08/29/20 09:19 Source: patient Mode of arrival: ambulatory Limitations: no limitations History of Present Illness: HPI narrative: Patient is a 75-year-old female who presents to ED today with a complaint of upper abdominal pressure. She tells me she has had intermittent upper abdominal pains over the past 5 weeks that has progressively worsened. She has been seen in our ED as well as several outpatient follow-up visits. She has been diagnosed with costochondritis as well as gastritis. 4 days [address] abdomen without contrast (secondary to allergy to contrast) which showed a left adrenal mass. She is followed up with her PCP as well as Dr. Morrow. They have requested CT abdomen with contrast as well as a CT-guided biopsy however she states these have not yet been scheduled. She states last night her pain was excruciating stating she was taking oxycodone every 2-3 hours. She states she feels like her abdomen is ballooning up . She has no complaints of chest pain or shortness of breath. She does not feel like her discomfort is affected by eating. She states getting up and moving around seems to take her mind off of the discomfort but states it never subsides. MD elicited complaint: abdominal pain Pertinent past history: other (known adrenal mass) Onset (ago): week(s) Pain Consistency: intermittent Location: Epigastric, LUQ and RUQ Severity: severe Quality: other (pressure) Radiation: none Migration to: no migration Exacerbating factors: rest Relieving factors: movement Associated Symptoms: Reports no associated symptoms; Denies change in stool character, chills, diarrhea, dysuria, fever(s), heartburn, hematochezia, hematemesis, melena, nausea, syncope and vomiting Treatments prior to arrival: other (oxycodone) Related Data: Patient : No Review of Systems Const: Denies: fever(s), chills, body aches, change in appetite, change in weight, fatigue, malaise, night sweats or diaphoresis Eyes: Denies: change in vision or blurry vision Card: Denies: chest pain, palpitations, irregular heart rhythm, lightheadedness, syncope or dyspnea on exertion Resp: Denies: dyspnea, productive cough or pain on inspiration GI: Reports: abdominal pain; Denies: nausea, vomiting, hematemesis, heartburn, diarrhea, change in stool character, hematochezia or melena : Denies: flank pain, difficulty voiding, dysuria, urinary frequency or urinary urgency Musc: Denies: neck pain, back pain or joint pain Skin/Breast: Denies: rash Neuro: Denies: headache(s), numbness in extremities, weakness in extremities, sensory changes or dizziness PFSH ED PFSH: Medical History Depression Migraines SVT (supraventricular tachycardia) Varicose veins of bilateral lower extremities with other complications Surgical History H/O oral surgery S/P hysterectomy S/P tonsillectomy Family History Other CHF (congestive heart failure) Dementia Depression Stroke Social History Smoking and tobacco status: former smoker Quit status (tobacco): has quit using tobacco Second hand smoke exposure: No Alcohol intake: never Lives independently: Yes Household members: family Housing: House service: No Current gender identity: Female Special brent needs: No Female Reproductive History: Spontaneous abortions: No Physical Exam Const: COMMON NORMALS: no acute distress, patient oriented x3, no limitations and alert GENERAL APPEARANCE: cooperative NUTRITIONAL APPEARANCE: obese ORIENTATION/CONSCIOUSNESS: Yes awake, Yes oriented to person, Yes oriented to place and Yes oriented to time HENMT: COMMON NORMALS: normocephalic and atraumatic HEAD & SCALP: normocephalic and atraumatic Resp: COMMON NORMALS: normal respiratory effort and clear to auscultation bilaterally AUSCULTATION: clear to auscultation bilaterally Cardio: COMMON NORMALS: regular rate and regular rhythm RATE: regular rate RHYTHM: regular rhythm GI: COMMON NORMALS: Normal to inspection, nondistended, normoactive bowel sounds present, Soft to palpation, non-tender, No hepatosplenomegaly present and no masses PALPATION: Yes Soft to palpation and Yes No hepatosplenomegaly present : COMMON NORMALS: Yes no CVA tenderness BLADDER/KIDNEY EXAM: Yes no CVA tenderness Back/Pelvis: COMMON NORMALS: no CVA tenderness, thoracic and lumbar spine normal to inspection, no thoracic nor lumbar tenderness, thoraco-lumbar ROM normal and straight leg raise negative bilaterally Extremity: COMMON NORMALS: capillary refill normal, no clubbing, cyanosis or edema and no pedal edema GENERAL: Yes normal exam except as noted Neuro: JANETT COMA SCALE: document GCS findings [place] coma scale eye opening: Spontaneous Janett coma scale verbal response: Orientated Janett coma scale motor response: Obey commands [place] coma scale total score: 15 COMMON NORMALS: patient oriented x3 SENSORIUM/ORIENTATION: Yes alert, Yes oriented to person, Yes oriented to place and Yes oriented to time Skin: COMMON NORMALS: no rashes or lesions noted GENERAL SKIN EXAM: no rashes or lesions noted Course ED course: Severe delay in pts care as I have been waiting over two hours for [facility] to call me back. We have re-contacted them and they assure me they are working on trying to get somebody. Consultations: Consultation #1: Dr. Wong-[facility] accepts transfer. Admitting physician will be Dr. Powell. Patient will be a direct admit to their BMT (bone marrow transplant) unit. Vital Signs: Vital signs: Vital Signs Temperature 98 F 08/29/20 20:24 Pulse Rate 85 08/29/20 20:24 Respiratory Rate 18 08/29/20 20:24 Blood Pressure 124/64 08/29/20 20:24 Pulse Oximetry 95 08/29/20 20:24 MDM - Abdominal Pain Lab Data: Labs: Lab Results 08/29/20 08/29/20 08/29/20 Range/Units 10:15 10:15 10:15 WBC 6.9 (4.0-10.0) 10^3/ uL RBC 4.60 (4.1-5.3) 10^6/u L Hgb 14.0 (11.5-15.3) g/dL Hct 41.2 (37.0-47.0) % MCV 89.6 (81-99) fL MCH 30.4 (28.0-34.0) pg MCHC 34.0 (30.0-36.0) g/dL RDW 12.5 (12.1-15.1) % Plt Count 408 H (130-400) 10^3/c mm MPV 10.9 H (7.4-10.4) fL Neut % (Auto) 57.2 % Lymph % (Auto) 29.8 % [place] % (Auto) 10.4 % Eos % (Auto) 1.6 % Baso % (Auto) 0.9 % Neut # (Auto) 3.96 (1.8-7.7) 10^3/u L Lymph # (Auto) 2.1 (0.8-4.8) 10^3/u L [place] # (Auto) 0.7 (0.2-0.9) 10^3/u L Eos # (Auto) 0.1 (0.0-0.8) 10^3/u L Baso # (Auto) 0.1 (0.0-0.1) 10^3/u L Nucleated RBC % (a uto) 0 % Nucleated RBCs # 0.0 /100WBC Sodium 133 L (136-145) mmol/L Potassium 4.2 (3.5-5.1) mmol/L Chloride 96 L (98-107) mmol/L Carbon Dioxide 22 (22-29) mmol/L Anion Gap 19.2 H (5-19) BUN 11 (8-23) mg/dL Creatinine 0.6 (0.5-0.9) mg/dL GFR Calculation Not Reportable Glucose 86 (65-115) mg/dL Calculated Osmolal ity 275 L (285-295) mOsm/k g Calcium 8.6 (8.5-10.5) mg/dL Total Bilirubin 0.4 (0.15-1.2) mg/dL AST 31 (0-32) U/L ALT 18 (0-33) U/L Alkaline Phosphata se 80 (35-105) IU/L Total Protein 6.6 (6.6-8.7) g/dL Albumin 3.9 (3.5-5.2) g/dL Globulin 2.7 (1.3-4.6) g/dL Lipase 47 (13-60) U/L Urine Color Yellow (Yellow) Urine Appearance Clear (CLEAR) Urine pH 5 (5-7) Ur Specific Gravit y 1.015 (1.005-1.030) Urine Protein Neg (Negative) Urine Glucose (UA) Norm (Normal) Urine Ketones 2+ H (Negative) Urine Blood Neg (Negative) Urine Nitrate Negative (Negative) Urine Bilirubin Neg (Negative) Urine Urobilinogen Norm (Negative) mg/dL Ur Leukocyte Jeannie ase Negative (Negative) SARS-CoV-2 Ag (Rap id) (Negative) 08/29/20 Range/Units 11:53 WBC (4.0-10.0) 10^3/ uL RBC (4.1-5.3) 10^6/u L Hgb (11.5-15.3) g/dL Hct (37.0-47.0) % MCV (81-99) fL MCH (28.0-34.0) pg MCHC (30.0-36.0) g/dL RDW (12.1-15.1) % Plt Count (130-400) 10^3/c mm MPV (7.4-10.4) fL Neut % (Auto) % Lymph % (Auto) % [place] % (Auto) % Eos % (Auto) % Baso % (Auto) % Neut # (Auto) (1.8-7.7) 10^3/u L Lymph # (Auto) (0.8-4.8) 10^3/u L [place] # (Auto) (0.2-0.9) 10^3/u L Eos # (Auto) (0.0-0.8) 10^3/u L Baso # (Auto) (0.0-0.1) 10^3/u L Nucleated RBC % (a uto) % Nucleated RBCs # /100WBC Sodium (136-145) mmol/L Potassium (3.5-5.1) mmol/L Chloride (98-107) mmol/L Carbon Dioxide (22-29) mmol/L Anion Gap (5-19) BUN (8-23) mg/dL Creatinine (0.5-0.9) mg/dL GFR Calculation Glucose (65-115) mg/dL Calculated Osmolal ity (285-295) mOsm/k g Calcium (8.5-10.5) mg/dL Total Bilirubin (0.15-1.2) mg/dL AST (0-32) U/L ALT (0-33) U/L Alkaline Phosphata se (35-105) IU/L Total Protein (6.6-8.7) g/dL Albumin (3.5-5.2) g/dL Globulin (1.3-4.6) g/dL Lipase (13-60) U/L Urine Color (Yellow) Urine Appearance (CLEAR) Urine pH (5-7) Ur Specific Gravit y (1.005-1.030) Urine Protein (Negative) Urine Glucose (UA) (Normal) Urine Ketones (Negative) Urine Blood (Negative) Urine Nitrate (Negative) Urine Bilirubin (Negative) Urine Urobilinogen (Negative) mg/dL Ur Leukocyte Jeannie ase (Negative) SARS-CoV-2 Ag (Rap id) Negative (Negative) Imaging Data ^: CT Abd/Pel: Radiologist's impression: [address] [id number] Scan ReportSigned Patient: Radha Barajas AUnit #: [id number]: 8Acct#:[id number]/Sex: 75 / FADM Date: 08/29/20Loc: ERRoom/Bed:Attending Dr: Ordering Provider/Ordering MD: Heather Mesa Date of Service: 08/29/20 Procedure(s): CT abdomen pelvis w con* [id number] Accession Number(s): [id number] Report Number: [id number] WS: [id number] CT ABDOMEN AND PELVIS WITH CONTRAST HISTORY: abdominal pain/known mass TECHNIQUE: Imaging performed of the abdomen and pelvis with IV contrast. Single phase imaging of the abdomen. Coronal and sagittal reformats are submitted. All CT scans at [facility] use at least one of these dose optimization techniques: automated exposure control; mA and/or kV adjustment per patient size (includes targeted exams where dose is matched to clinical indication); or iterative reconstruction. IV CONTRAST: Visipaque 320; 95 mL IV. Oral contrast: No DLP: 1593.16 mGy.cm COMPARISON: 08/23/2020 Lower thorax: Lung bases are clear. Heart is normal size. No hiatal hernia. Liver/biliary system: Normal size liver. Area of decreased attenuation along the falciform ligament compatible steatosis. No bile duct dilatation. Normal portal vein. Gallbladder: Normal. No gallstones or wall thickening. No pericholecystic fluid. Pancreas: Normal size pancreas and pancreatic duct. No adjacent inflammation. Spleen: Normal size spleen. Adrenal glands: Normal RIGHT adrenal gland. LEFT adrenal gland is not visualized. There is a large mass in the LEFT upper abdomen which will be described in the body of the report. There is a large lobulated soft tissue mass invading and encasing structures in the LEFT upper abdomen. Mass extends over a length of 9.2 cm x 9.7 x 8.5 cm. Mass begins just inferior to the LEFT diaphragm and abuts but probably does not invade the greater curvature of the stomach. Mass extends to abut the spleen and the superior pole of the LEFT kidney. Highly suspicious for invasion of the superior pole LEFT kidney. Mass extends medially to encase the celiac axis and SMA. Greater than 50% involvement of the suprarenal aorta and the mass extends posterior to the aorta and along the paraspinal soft tissues. There is encasement and mild narrowing of the LEFT renal artery although normal enhancement of the renal parenchyma. There is also abnormal soft tissue extending to involve the splenic flexure of the colon. There is stranding and soft tissue nodularity and narrowing of the lumen. Right kidney: Normal. Left kidney: Normal size kidney. Superior pole may be invaded by the soft tissue mass in the LEFT upper abdomen. Aorta: No atherosclerosis. Significant encasement of the aorta by the soft tissue mass in the LEFT upper abdomen. Lymphadenopathy: There are additional small retroperitoneal lymph nodes. 11 mm lymph node anterior to the LEFT psoas muscle. Free fluid: None. GI tract: No GI tract obstruction. There is mild to moderate fecal retention. There is abnormal luminal narrowing with abnormal soft tissue encasing the splenic flexure which is probably contiguous with the LEFT upper abdominal mass. This stricture measures at least 10 cm in length with adjacent small lymph nodes. Abdominal wall: Unremarkable abdominal wall. No hernia. Pelvis: Prior hysterectomy. No free fluid. No adenopathy is appreciated. Bones: Facet joint arthritis at L4-5 and L5-S1. No osteoblastic or osteolytic bone disease. CT/CT abdomen pelvis w con* [id number] IMPRESSION: 1. Large lobulated soft tissue mass in the LEFT upper abdomen measures 9.7 x 8.5 cm and extends over length of 9.2 cm. Lobulated mass encases and invades adjacent structures as described above. Suspect invasion of the colonic splenic flexure. Suggest colonoscopy for further evaluation and possible biopsy. Mass probably invades the superior pole the LEFT kidney, the splenic flexure and nearly invades posterior stomach. There is encasement of aorta, celiac axis, SMA and LEFT renal artery. Obscuration of the LEFT adrenal gland. 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 2. Additional small but numerous lymph nodes surrounding the splenic flexure and in the retroperitoneum. 3. Prior hysterectomy. Dictated By:Elizabeth Casey DOSigned By:Elizabeth Casey DOSigned Date/Time:08/29/20 1106DD/ 1050 Discharge Plan Discharge Patient Disposition: Xfer to Cancer Center or [facility] Clinical Impression: Abdominal mass, left upper quadrant Condition: Stable Referrals: Re Isaacs MD [Primary Care Provider] - Coding Level of Care Code ED Grain Sampler for Chg 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 Documented by User: Mary Sargent [place], [facility] [place]30[place] 00:05 HPI - Abdominal Pain General: Chief Complaint: Abdominal Pain Stated Complaint: ABD Pain Time Seen by Provider: 08/29/20 09:19 [facility] PFSH: Medical History Depression Migraines SVT (supraventricular tachycardia) Varicose veins of bilateral lower extremities with other complications Surgical History H/O oral surgery S/P hysterectomy S/P tonsillectomy Family History Other CHF (congestive heart failure) Dementia Depression Stroke Social History Smoking and tobacco status: former smoker Quit status (tobacco): has quit using tobacco Second hand smoke exposure: No Alcohol intake: never Lives independently: Yes Household members: family Housing: House service: No Current gender identity: Female Special brent needs: No Course Vital Signs: Vital signs: Vital Signs Temperature 98 F 08/29/20 20:24 Pulse Rate 85 08/29/20 20:24 Respiratory Rate 18 08/29/20 20:24 Blood Pressure 124/64 08/29/20 20:24 Pulse Oximetry 95 08/29/20 20:24 MDM - Abdominal Pain MDM Narrative: Medical decision making narrative: Kindly evaluate the midlevel provider note for complete history and physical examination. I agree with her findings. I also evaluated the patient. Essentially this is a 75-year-old female with worsening abdominal pain that is not responding to her oral narcotic analgesics. Evaluation in the emergency department shows a large abdominal mass concerning for lymphoma. She is being transferred to [facility] for further evaluation and management. Lab Data: Labs: Lab Results 08/29/20 08/29/20 08/29/20 Range/Units 10:15 10:15 10:15 WBC 6.9 (4.0-10.0) 10^3/ uL RBC 4.60 (4.1-5.3) 10^6/u L Hgb 14.0 (11.5-15.3) g/dL Hct 41.2 (37.0-47.0) % MCV 89.6 (81-99) fL MCH 30.4 (28.0-34.0) pg MCHC 34.0 (30.0-36.0) g/dL RDW 12.5 (12.1-15.1) % Plt Count 408 H (130-400) 10^3/c mm MPV 10.9 H (7.4-10.4) fL Neut % (Auto) 57.2 % Lymph % (Auto) 29.8 % [place] % (Auto) 10.4 % Eos % (Auto) 1.6 % Baso % (Auto) 0.9 % Neut # (Auto) 3.96 (1.8-7.7) 10^3/u L Lymph # (Auto) 2.1 (0.8-4.8) 10^3/u L [place] # (Auto) 0.7 (0.2-0.9) 10^3/u L Eos # (Auto) 0.1 (0.0-0.8) 10^3/u L Baso # (Auto) 0.1 (0.0-0.1) 10^3/u L Nucleated RBC % (a uto) 0 % Nucleated RBCs # 0.0 /100WBC Sodium 133 L (136-145) mmol/L Potassium 4.2 (3.5-5.1) mmol/L Chloride 96 L (98-107) mmol/L Carbon Dioxide 22 (22-29) mmol/L Anion Gap 19.2 H (5-19) BUN 11 (8-23) mg/dL Creatinine 0.6 (0.5-0.9) mg/dL GFR Calculation Not Reportable Glucose 86 (65-115) mg/dL Calculated Osmolal ity 275 L (285-295) mOsm/k g Calcium 8.6 (8.5-10.5) mg/dL Total Bilirubin 0.4 (0.15-1.2) mg/dL AST 31 (0-32) U/L ALT 18 (0-33) U/L Alkaline Phosphata se 80 (35-105) IU/L Total Protein 6.6 (6.6-8.7) g/dL Albumin 3.9 (3.5-5.2) g/dL Globulin 2.7 (1.3-4.6) g/dL Lipase 47 (13-60) U/L Urine Color Yellow (Yellow) Urine Appearance Clear (CLEAR) Urine pH 5 (5-7) Ur Specific Gravit y 1.015 (1.005-1.030) Urine Protein Neg (Negative) Urine Glucose (UA) Norm (Normal) Urine Ketones 2+ H (Negative) Urine Blood Neg (Negative) Urine Nitrate Negative (Negative) Urine Bilirubin Neg (Negative) Urine Urobilinogen Norm (Negative) mg/dL Ur Leukocyte Jeannie ase Negative (Negative) SARS-CoV-2 Ag (Rap id) (Negative) 08/29/20 Range/Units 11:53 WBC (4.0-10.0) 10^3/ uL RBC (4.1-5.3) 10^6/u L Hgb (11.5-15.3) g/dL Hct (37.0-47.0) % MCV (81-99) fL MCH (28.0-34.0) pg MCHC (30.0-36.0) g/dL RDW (12.1-15.1) % Plt Count (130-400) 10^3/c mm MPV (7.4-10.4) fL Neut % (Auto) % Lymph % (Auto) % [place] % (Auto) % Eos % (Auto) % Baso % (Auto) % Neut # (Auto) (1.8-7.7) 10^3/u L Lymph # (Auto) (0.8-4.8) 10^3/u L [place] # (Auto) (0.2-0.9) 10^3/u L Eos # (Auto) (0.0-0.8) 10^3/u L Baso # (Auto) (0.0-0.1) 10^3/u L Nucleated RBC % (a uto) % Nucleated RBCs # /100WBC Sodium (136-145) mmol/L Potassium (3.5-5.1) mmol/L Chloride (98-107) mmol/L Carbon Dioxide (22-29) mmol/L Anion Gap (5-19) BUN (8-23) mg/dL Creatinine (0.5-0.9) mg/dL GFR Calculation Glucose (65-115) mg/dL Calculated Osmolal ity (285-295) mOsm/k g Calcium (8.5-10.5) mg/dL Total Bilirubin (0.15-1.2) mg/dL AST (0-32) U/L ALT (0-33) U/L Alkaline Phosphata se (35-105) IU/L Total Protein (6.6-8.7) g/dL Albumin (3.5-5.2) g/dL Globulin (1.3-4.6) g/dL Lipase (13-60) U/L Urine Color (Yellow) Urine Appearance (CLEAR) Urine pH (5-7) Ur Specific Gravit y (1.005-1.030) Urine Protein (Negative) Urine Glucose (UA) (Normal) Urine Ketones (Negative) Urine Blood (Negative) Urine Nitrate (Negative) Urine Bilirubin (Negative) Urine Urobilinogen (Negative) mg/dL Ur Leukocyte Jeannie ase (Negative) SARS-CoV-2 Ag (Rap id) Negative (Negative) Discharge Plan Discharge Patient Disposition: Xfer to Cancer Center or [facility] Clinical Impression: Abdominal mass, left upper quadrant Condition: Stable Referrals: Re Isaacs MD [Primary Care Provider] - Coding Level of Care Code ED Grain Sampler for Chg 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
[2020-08-29 09:23] VITALS: BP 134/76; PULSE 89; RESP 18; TEMP 36.6; O2SAT 94; BMI 34.6
--- NOTE | 2020-08-29 09:34 | CT_ITS ---
WS: [id number] CT ABDOMEN AND PELVIS WITH CONTRAST HISTORY: abdominal pain/known mass TECHNIQUE: Imaging performed of the abdomen and pelvis with IV contrast. Single phase imaging of the abdomen. Coronal and sagittal reformats are submitted. All CT scans at [facility] use at least one of these dose optimization techniques: automated exposure control; mA and/or kV adjustment per patient size (includes targeted exams where dose is matched to clinical indication); or iterativ e reconstruction. IV CONTRAST: Visipaque 320; 95 mL IV. Oral contrast: No DLP: 1593.16 mGy.cm COMPARISON: 08/23/2020 Lower thorax: Lung bases are clear. Heart is normal size. No hiatal hernia. Liver/biliary system: Normal size liver. Area of decreased attenuation along the falciform ligament c ompatible steatosis. No bile duct dilatation. Normal portal vein. Gallbladder: Normal. No gallstones or wall thickening. No pericholecystic fluid. Pancreas: Normal size pancreas and pancreatic duct. No adjacent inflammation. Spleen: Normal size spleen. Adrenal glands: Normal RIGHT adrenal gland. LEFT adrenal gland is not visualized. There is a large ma ss in the LEFT upper abdomen which will be described in the body of the report. There is a large lobulated soft tissue mass invading and encasing structures in the LEFT upper abdome n. Mass extends over a length of 9.2 cm x 9.7 x 8.5 cm. Mass begins just inferior to the LEFT diaphra gm and abuts but probably does not invade the greater curvature of the stomach. Mass extends to abut the spleen and the superior pole of the LEFT kidney. Highly suspicious for invasion of the superior p ole LEFT kidney. Mass extends medially to encase the celiac axis and SMA. Greater than 50% involvemen t of the suprarenal aorta and the mass extends posterior to the aorta and along the paraspinal soft t issues. There is encasement and mild narrowing of the LEFT renal artery although normal enhancement o f the renal parenchyma. There is also abnormal soft tissue extending to involve the splenic flexure o f the colon. There is stranding and soft tissue nodularity and narrowing of the lumen. Right kidney: Normal. Left kidney: Normal size kidney. Superior pole may be invaded by the soft tissue mass in the LEFT upp er abdomen. Aorta: No atherosclerosis. Significant encasement of the aorta by the soft tissue mass in the LEFT up per abdomen. Lymphadenopathy: There are additional small retroperitoneal lymph nodes. 11 mm lymph node anterior to the LEFT psoas muscle. Free fluid: None. GI tract: No GI tract obstruction. There is mild to moderate fecal retention. There is abnormal lumin al narrowing with abnormal soft tissue encasing the splenic flexure which is probably contiguous with the LEFT upper abdominal mass. This stricture measures at least 10 cm in length with adjacent small lymph nodes. Abdominal wall: Unremarkable abdominal wall. No hernia. Pelvis: Prior hysterectomy. No free fluid. No adenopathy is appreciated. Bones: Facet joint arthritis at L4-5 and L5-S1. No osteoblastic or osteolytic bone disease. CT/CT abdomen pelvis w con* [id number] IMPRESSION: 1. Large lobulated soft tissue mass in the LEFT upper abdomen measures 9.7 x 8 .5 cm and extends over length of 9.2 cm. Lobulated mass encases and invades adj acent structures as described above. Suspect invasion of the colonic splenic fl exure. Suggest colonoscopy for further evaluation and possible biopsy. Mass pro bably invades the superior pole the LEFT kidney, the splenic flexure and nearly invades posterior stomach. There is encasement of aorta, celiac axis, SMA and LEFT renal artery. Obscuration of the LEFT adrenal gland. Lymphoma is thought t o be most likely. 2. Additional small but numerous lymph nodes surrounding the splenic flexure a nd in the retroperitoneum. 3. Prior hysterectomy.
[2020-08-29] MEDS: hydrocortisone 100 mg/2 mL SDV IVP (10:17)
[2020-08-29] MEDS: diphenhydrAMINE 50 mg/mL SDV 1mL IVP (10:17)
[2020-08-29] MEDS: iodixanol 320 mg/mL 100mL Btl IV (10:36)
[2020-08-29 10:45] LABS: Add Urine Microscopic? NO; Charge for UA Resulting for Rev
[2020-08-29 10:47] LABS: Alanine Aminotransferase 18 U/L (0-33); Albumin Level 3.9 g/dL (3.5-5.2); Alkaline Phosphatase 80 IU/L (35-105); Blood Urea Nitrogen 11 mg/dL (8-23); Calcium 8.6 mg/dL (8.5-10.5); Carbon Dioxide 22 mmol/L (22-29); Chloride 96 mmol/L (98-107); Globulin 2.7 g/dL (1.3-4.6); Glucose 86 mg/dL (65-115); Lipase 47 U/L (13-60); Osmolality Calculated 275 mOsm/kg (285-295); Sodium 133 mmol/L (136-145); Total Bilirubin 0.4 mg/dL (0.15-1.2); Total Protein 6.6 g/dL (6.6-8.7)
[2020-08-29 10:50] LABS: Anion Gap 19.2 (5-19); Aspartate Amino Transferase 31 U/L (0-32); Potassium 4.2 mmol/L (3.5-5.1)
[2020-08-29 10:52] LABS: Bilirubin Urine Neg (Negative); Blood Urine Neg (Negative); Glucose Urine UA Norm (Normal); Ketones Urine 2+ (Negative); Leukocyte Esterase Urine Negative (Negative); Nitrate Urine Negative (Negative); Protein Urine Neg (Negative); Specific Gravity, Urine 1.015 (1.005-1.030); Urine Appearance Clear (CLEAR); Urine Color Yellow (Yellow); Urobilinogen Urine Norm (Negative); pH Urine 5 (5-7)
[2020-08-29 10:59] LABS: Basophils # 0.1 10^3/uL (0.0-0.1); Basophils % 0.9 %; Eosinophils # 0.1 10^3/uL (0.0-0.8); Eosinophils % 1.6 %; Hematocrit 41.2 % (37.0-47.0); Lymphocytes # 2.1 10^3/uL (0.8-4.8); Lymphocytes % 29.8 %; Mean Corpuscular Hemoglobin 30.4 pg (28.0-34.0); Mean Corpuscular Volume 89.6 fL (81-99); Mean Platelet Volume 10.9 fL (7.4-10.4); Monocytes # 0.7 10^3/uL (0.2-0.9); Monocytes % 10.4 %; Neutrophils # 3.96 10^3/uL (1.8-7.7); Neutrophils % 57.2 %; Nucleated Red Blood Cells % 0 %; Platelet Count 408 10^3/cmm (130-400); Red Cell Distribution Width 12.5 % (12.1-15.1); White Blood Count 6.9 10^3/uL (4.0-10.0)
[2020-08-29] MEDS: sodium chloride 0.9% 1,000 ML 999 ML IV (11:12)
[2020-08-29 12:22] LABS: SARS Covid-2 Antigen Negative (Negative)
[2020-08-29 15:57] VITALS: RESP 18; O2SAT 98
[2020-08-29] MEDS: morphine 4 mg/mL SDV 1 mL IVP ×2 (15:57→23:05)
[2020-08-29] MEDS: ondansetron 2 mg/ML SDV 2 mL 4 MG IVP (15:58)
[2020-08-29 20:24] VITALS: BP 124/64; PULSE 85; RESP 18; TEMP 36.6; O2SAT 95
[2020-08-29 23:05] VITALS: RESP 17
[2020-08-29 23:15] VITALS: BP 134/71
--- NOTE | 2020-08-29 23:15 | PC.NURSE ---
Bedside report given to this nurse by Rita EARLY. Pt awake in bed, c/o upper quad abd pain and back pain. Pt asking if I can notarize her DPOA. Spoke with pt about notarizing her paperwork once her morphine wears off.
[2020-08-30] VITALS (16 sets, daily range): BP systolic 127–161; BP diastolic 71–87; PULSE 70–88; RESP 14–20; TEMP 36.3; O2SAT 93–100
[2020-08-30] MEDS: oxyCODONE-APAP 10-325 mg Tablet 1 TAB PO ×2 (00:33→06:18)
[2020-08-30] MEDS: LORazepam 1 mg Tablet PO (00:34)
[2020-08-30] MEDS: levothyroxine 50 mcg Tablet PO (01:01)
--- NOTE | 2020-08-30 02:13 | PC.NURSE ---
community service coordinator called for pt update. VSS given.
--- NOTE | 2020-08-30 02:56 | PC.NURSE ---
Pt c/o pain in upper abd and back 11/13. Pt requesting her home pain medication. Dr Leonard notified.
--- NOTE | 2020-08-30 09:14 | PC.NURSE ---
pt and pt's visitor stressed out and upset with situation-not staff. pt is verbalizing her frustration with how long it is taking her to get acceptance and bed information at [facility]. Pt is upset that her pain is still there no matter what . Pt says that we are all just letting her lie here in this emergency room and allowing her cancer to grow . ER physician notified of pt's concerns. orders received.
[2020-08-30] MEDS: LORazepam 2 mg/mL INJ 1 mL 1 MG IVP (09:42)
[2020-08-30] MEDS: morphine 4 mg/mL SDV 1 mL IVP ×2 (09:42→16:38)
--- NOTE | 2020-08-30 15:44 | PC.NURSE ---
Spoke with Mayuri at [facility] and was told there are currently no rooms, but they anticipate discharges this evening. Updated Mayuri on pt VS and status. Updated pt on phone call. Pt provided with chicken broth and denies other needs at this time.
--- NOTE | 2020-08-30 15:57 | PC.NURSE ---
While rounding on pt, pt declined offer of pain medication.
--- NOTE | 2020-08-30 16:31 | PC.NURSE ---
Pt given dinner tray
[2020-08-30] MEDS: ondansetron 2 mg/ML SDV 2 mL 4 MG IVP (16:38)
--- NOTE | 2020-08-30 17:55 | PC.NURSE ---
Pt had an episode of emesis that resulted in urinary incontinence. Pt went to the bathroom and was placed back in the recliner so linens could be changed.
[2020-08-30] MEDS: metoclopramide 5 mg/mL SDV 2 mL IVP (18:28)
[2020-08-30] MEDS: diphenhydrAMINE 50 mg/mL SDV 1mL 25 MG IVP (18:28)
--- NOTE | 2020-08-30 19:48 | PC.NURSE ---
called report to Diasy Magallanes RN at [facility]. Bed assignment #[id number]
--- NOTE | 2020-08-30 20:33 | PC.NURSE ---
report given to Abdullahi Nicholas, School Bus [employer]
== END 2020-08-30 20:47 | disposition designated cancer center or children's hospital (05) ==
PROVIDERS: Emergency Provider Physician Assistant; PCP Family Medicine
DX: R19.02 Left upper quadrant abdominal swelling, mass and lump (principal); Z87.891 Personal history of nicotine dependence
CPT/HCPCS: 74177; 80053; 81003; 83690; 85025; 87426; 96374; 96375; 99285; J1200; J1720; J2060; J2270; J2405; J2765; J7030; Q9967

== ENCOUNTER 2020-09-17 10:03 | Outpatient (CLI) | payer MEDICARE, OTHER, SELFPAY ==
[2020-09-17] MEDS: famotidine 20 mg/2 mL INJ IVP (12:25)
[2020-09-17] MEDS: ondansetron 2 mg/ML SDV 2 mL 8 MG IV (12:28)
[2020-09-17] MEDS: sodium chloride 0.9% 1,000 ML 999 ML IV (12:45)
[2020-09-17 12:50] LABS: Basophils % 5.2 %; Eosinophils # 0.1 10^3/uL (0.0-0.8); Eosinophils % 17.2 %; Hemoglobin 13.2 g/dL (11.5-15.3); Lymphocytes # 0.3 10^3/uL (0.8-4.8); Lymphocytes % 56.9 %; Mean Corpuscular HGB Conc 33.8 g/dL (30.0-36.0); Mean Corpuscular Volume 88.6 fL (81-99); Mean Platelet Volume 10.8 fL (7.4-10.4); Monocytes % 6.9 %; Neutrophils % 10.4 %; Nucleated Red Blood Cells % 0 %; Platelet Count 107 10^3/cmm (130-400); Positive M 1; Red Cell Distribution Width 12.6 % (12.1-15.1)
[2020-09-17 13:04] LABS: Alanine Aminotransferase 23 U/L (0-33); Albumin Level 3.7 g/dL (3.5-5.2); Alkaline Phosphatase 73 IU/L (35-105); Anion Gap 14.7 (5-19); Aspartate Amino Transferase 11 U/L (0-32); Blood Urea Nitrogen 8 mg/dL (8-23); Calcium 9.3 mg/dL (8.5-10.5); Carbon Dioxide 24 mmol/L (22-29); Chloride 99 mmol/L (98-107); Globulin 2.1 g/dL (1.3-4.6); Glucose 102 mg/dL (65-115); Lactate Dehydrogenase 219 U/L (135-214); Osmolality Calculated 277 mOsm/kg (285-295); Potassium 3.7 mmol/L (3.5-5.1); Sodium 134 mmol/L (136-145); Total Bilirubin 0.8 mg/dL (0.15-1.2); Total Protein 5.8 g/dL (6.6-8.7)
[2020-09-17 13:29] LABS: Neutrophils # 0.06 10^3/uL (1.8-7.7); White Blood Count 0.6 10^3/uL (4.0-10.0)
[2020-09-17 13:30] LABS: Slide Review Slide Review Perform
--- NOTE | 2020-09-17 19:52 | ONC CON_ITS ---
Dr. Morrow New Patient Note Patient: Radha Barajas Unit #: [id number]: 1945 Dicatated By: Shelton Morrow M.D.Date of Visit: Sep 17, 2020 Onc MED New Patient/Consult Referring Physician: Dr. Re Isaacs M.D. Chief Complaint: Lymphoma. 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 On 08/25/2020 she had presented to the emergency room with pain in the upper abdomen/lower rib cage. Her CT abdomen/pelvis showed a large bulky mass in the left upper retroperitoneum centered in the expected location of the left adrenal gland. It measured 13.0 x 10.0 x 7.5 cm. There was additional adenopathy noted in the retroperitoneum and mesentery. The initial plan was to evaluate further as an outpatient. However, she returned to the emergency room 4 days later with worsening symptoms, and at that point arrangements were made for transfer to [facility] for admission. Her staging PET/CT showed large markedly hypermetabolic mass extending from the retrocrural fat to left upper retroperitoneum with involvement of the colonic wall at the splenic flexure. The mass measured 10.7 x 15.9 cm with maximum SUV 54. She began on steroid therapy with prednisone 100 mg daily and on 09/04/[address] directed biopsy of the mass. Pathology was consistent with high-grade lymphoma with flow cytometry positive for CD10, CD20, CD19, CD45, CD38, and lambda light chain and with FISH positive for the Myc and the BCL-2 rearrangements. It was negative for the BCL6 rearrangement. On 09/07/2020 she began cycle 1 of EPOCH-R chemotherapy. Her baseline echocardiogram showed normal left ventricular ejection fraction at 67%. She was discharged home on 09/13/2020. She is seen for post chemotherapy follow-up. She complains that she has no energy and no appetite. She complains of having constant nausea since she has been home. It apparently had been controlled adequately with ondansetron while she was in the hospital, but she had a severe headache after she tried taking it last evening. She has had a 20 pound weight loss. She has not had fever. She has occasional sweating. She complains that during her rituximab infusion on the last day of her treatment she began having tightness in her chest and difficulty breathing, and those symptoms have persisted. She also complains of sore throat and she says she has had a change in her voice. She is not had difficulty swallowing. She does complain that her ears hurt off and on. She has just very occasional cough. She continues to complain that she cannot get enough air, and she still has tightness in her chest. She has had occasional dry heaves. She had a little bit of acid reflux last night. She has been having loose stools, but not actual diarrhea. She has been having constant gas pains in the lower abdomen. Bladder function has been okay. She has had some pain in her hips, but no other joint or bone pain. She gets weak if she stands very long. She has a little bit of numbness in her left hand now and then. She has no other focal neurologic symptoms. She is having some anxiety, and she says she cannot sleep because of the nausea. Past Medical History: Her medical history includes depression, hypothyroidism, migraine headaches, and supraventricular tachycardia. Past Surgical History: Her surgical/procedural history includes hysterectomy with unilateral oophorectomy and tonsillectomy. Medications: Aspirin 81 Tablet, enteric coated Oral, Cetirizine HCl (10 mg) Tablet Oral daily, HYDROcodone-Acetaminophen Tablet Oral PRN, Levothyroxine Sodium (50 mcg) Tablet Oral daily, Ondansetron HCl Tablet Oral PRN, oxyCODONE HCl Tablet Oral PRN, Pantoprazole Sodium (40 mg) Tablet, enteric coated Oral daily, Sertraline HCl (25 mg) Tablet Oral daily, SUMAtriptan Succinate Tablet Oral PRN Allergies: influenza vaccines and Iodinated Contrast Media. Social History: Ms. Barajas is . 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 She has a history of smoking off and on, up to a pack of cigarettes daily, beginning at age 21. She quit smoking in 2004. She has just very occasional alcohol use. Family History: Father had Alzheimer's dementia and asbestos-related lung disease. He with aspiration pneumonia at age 87. Mother with congestive heart failure at age 89. She has 4 brothers, all living. The eldest has valvular rheumatic heart disease. The youngest has coronary artery disease. A paternal aunt had colon cancer. Review Of Symptoms: Constitutional - She generally feels very ill since starting her treatment regimen. She has no energy. She has significant generalized weakness and is mainly sedentary. Her appetite is extremely poor and she reports a 20 pounds weight loss over 5 weeks. No fevers, night sweats, or hot flashes. ECOG score is 3, Eyes - No change in vision, ENMT - No hearing loss or tinnitus, but she does complain that her ears hurt off and on. She has seasonal allergies that are adequately controlled with daily Zyrtec. She has pain to the roof of her mouth. She has a sore throat. No difficulty swallowing. She reports that she's noticed a change in her voice recently, Hematologic/Lymphatic - No abnormal bruising or bleeding, Respiratory - She feels short of breath. No cough. No pleuritic pain or hemoptysis, Cardiovascular - She reports some tightness in her chest. She occasionally feels like her heart is irregular, Gastrointestinal - She is having persistent nausea with intermittent dry heaving. She started having heartburn yesterday. She has loose stools, but not actual diarrhea. She has not been aware of any blood in the stool. She is having constant pain in the lower abdomen, Genitourinary (F) - No dysuria or hematuria. No urinary frequency, but she has nocturia. No urgency or incontinence, Musculoskeletal - She has pain in her hips, Integumentary - No skin eruption, Neurologic - She has a headache. She has a history of chronic migraines. No dizziness. She has some tingling in her right hand with occasional mild numbness. No other focal neurologic symptoms, Psychiatric - She has been having some anxiety. She has a long history of severe depression. She does not sleep well. Vital Signs: Performed on Sep 17, 2020 11:05: 9, 1, 0.00, 0.00 sq.m, 98 %, 94 /min, 18 /min, 134/84 mm(hg), 96.4 F (LOW), and 213.2 lbs (HIGH). Physical Examination: Constitutional - She appears generally weak, Eyes - Sclerae nonicteric. Conjunctivae clear, ENMT - No lesions noted in the oral cavity. She appears to have fluid behind both TMs, but TMs are not inflamed, Neck - No mass or thyromegaly. She is mildly tender in the submandibular area on the right, Hematologic/Lymphatic - No cervical, clavicular, or axillary adenopathy, Respiratory - Lungs are clear with good air movement bilaterally, Cardiovascular - Heart rhythm is regular. There is no murmur, gallop, or rub noted, Abdomen - Soft and non-tender. Liver and spleen are not enlarged. There is no abdominal mass or ascites noted and there is no inguinal adenopathy, Back/Spine - No spine or CVA tenderness noted, Extremities - There is 1-2+ lower extremity edema. Pedal pulses are palpable bilaterally, Integumentary - No rashes. No suspicious skin lesions noted, Neurologic - No focal neurologic deficits noted. Lab/Imaging: Test performed on Sep 17, 2020 12:25 LDH (Total) 219 U/L Sodium 134 mmol/L Potassium 3.7 mmol/L Chloride 99 mmol/L CO2 24 mmol/L Anion Gap 14.7 BUN 8 mg/dL Creatinine 0.5 mg/dL Glucose 102 mg/dL Osmolality - Calculated 277 mOsm/kg Calcium 9.3 mg/dL Protein, Total 5.8 g/dL Albumin 3.7 g/dL Globulin 2.1 g/dL Bilirubin, Total 0.8 mg/dL ALT (SGPT) 23 U/L AST (SGOT) 11 U/L Alkaline Phosphatase 73 IU/L WBC 0.6 10 3/uL RBC 4.40 10 6/uL HGB 13.2 g/dL HCT 39.0 % MCV 88.6 fL MCH 30.0 pg MCHC 33.8 g/dL RDW 12.6 % Platelet Count 107 10 3/cmm MPV 10.8 fL Neutrophils 0.06 10 3/uL Lymphocytes 0.3 10 3/uL Monocytes 0.0 10 3/uL Eosinophils 0.1 10 3/uL Basophils 0.0 10 3/uL Neutrophil % 10.4 % Lymphocyte % 56.9 % Monocyte % 6.9 % Eosinophil % 17.2 % Basophils % 5.2 % NRBC % 0 % CBC Slide Review Slide Review Perform SLIDE REVIEW AGREES WITH AUTOMATED RESULTS Problem List: 1. High-grade lymphoma with FISH positive for the Myc and BCL-2 rearrangements. 2. Hypothyroidism. 3. History of migraine headaches. 4. History of supraventricular tachycardia. 5. Anxiety/depression. Problems Addressed with this Encounter and Plan: 1. Patient with High-grade lymphoma with FISH positive for the Myc and BCL-2 rearrangements. She presented with large retroperitoneal mass centered in the expected location of the left adrenal gland. Diagnosis was confirmed by CT directed biopsy on 09/04/2020. She began cycle 1 of EPOCH-R chemotherapy on 09/07/2020. She is now at day 11 of her treatment. She has multiple complaints including severe weakness/fatigue and nausea/anorexia. She also is having tightness in her chest and shortness of breath, though with normal oxygen saturation on room air. She will be given IV hydration and IV antiemetics today and I will then have her start prochlorpromazine 10 mg together with dronabinol 5 mg twice daily, subject to verification of insurance coverage. She will be given further IV hydration as needed. She has scheduled follow-up at [facility] for her 2nd cycle of chemotherapy. 2. She has severe chemotherapy-induced neutropenia. She is not febrile. She was given Neulasta prophylactically with her chemotherapy. She will continue her prophylaxis with acyclovir and Bactrim, and I will also now add oral Levaquin daily. She will have a repeat CBC in 3 days. She is aware that she does need to call or go to the ER if she has fever. Signed By: Shelton Morrow M.D. <<Signature on File>>
== END 2020-09-17 10:04 | disposition home or self-care (01) ==
LOC: ONCMED 10:08
PROVIDERS: PCP Family Medicine; Visit Provider Internal Medicine Medical Oncology
DX: C85.90 Non-Hodgkin lymphoma, unspecified, unspecified site (principal); E03.8 Other specified hypothyroidism; F41.9 Anxiety disorder, unspecified; F32.9 Major depressive disorder, single episode, unspecified; Z92.21 Personal history of antineoplastic chemotherapy; D70.1 Agranulocytosis secondary to cancer chemotherapy; Z79.899 Other long term (current) drug therapy
CPT/HCPCS: 80053; 83615; 85025; 96361; 96365; 96375; 99205; J1100; J2405; J3490; J7030

== ENCOUNTER 2020-10-01 05:50 | Outpatient (RCR) | payer MEDICARE, OTHER, SELFPAY ==
[2020-09-20] MEDS: sodium chloride 0.9% 1,000 ML 999 ML IV (13:45)
[2020-09-20 13:52] LABS: Basophils # 0.1 10^3/uL (0.0-0.1); Basophils % 0.9 %; Eosinophils # 0.1 10^3/uL (0.0-0.8); Eosinophils % 0.7 %; Hematocrit 36.1 % (37.0-47.0); Hemoglobin 12.4 g/dL (11.5-15.3); Lymphocytes # 1.1 10^3/uL (0.8-4.8); Lymphocytes % 14.7 %; Mean Corpuscular HGB Conc 34.3 g/dL (30.0-36.0); Mean Corpuscular Hemoglobin 30.6 pg (28.0-34.0); Mean Corpuscular Volume 89.1 fL (81-99); Monocytes % 13.1 %; Neutrophils # 4.67 10^3/uL (1.8-7.7); Neutrophils % 61.9 %; Nucleated Red Blood Cells % 0 %; Platelet Count 169 10^3/cmm (130-400); Red Blood Count 4.05 10^6/uL (4.1-5.3); Red Cell Distribution Width 12.6 % (12.1-15.1); White Blood Count 7.6 10^3/uL (4.0-10.0)
[2020-09-20 14:32] LABS: Slide Review Slide Review Perform
[2020-09-20 16:22] LABS: Alanine Aminotransferase 20 U/L (0-33); Albumin Level 3.3 g/dL (3.5-5.2); Alkaline Phosphatase 76 IU/L (35-105); Anion Gap 13.5 (5-19); Aspartate Amino Transferase 15 U/L (0-32); Blood Urea Nitrogen 9 mg/dL (8-23); Carbon Dioxide 23 mmol/L (22-29); Chloride 105 mmol/L (98-107); Globulin 2.1 g/dL (1.3-4.6); Glucose 96 mg/dL (65-115); Osmolality Calculated 285 mOsm/kg (285-295); Potassium 3.5 mmol/L (3.5-5.1); Sodium 138 mmol/L (136-145); Total Bilirubin 0.2 mg/dL (0.15-1.2); Total Protein 5.4 g/dL (6.6-8.7)
[2020-09-24] MEDS: sodium chloride 0.9% 1,000 ML 999 ML IV (13:35)
[2020-09-24 14:00] LABS: Basophils % 0.4 %; Eosinophils % 0.1 %; Hematocrit 36.8 % (37.0-47.0); Hemoglobin 12.1 g/dL (11.5-15.3); Lymphocytes # 1.3 10^3/uL (0.8-4.8); Lymphocytes % 11.8 %; Mean Corpuscular HGB Conc 32.9 g/dL (30.0-36.0); Mean Corpuscular Volume 91.3 fL (81-99); Mean Platelet Volume 9.8 fL (7.4-10.4); Monocytes # 1.4 10^3/uL (0.2-0.9); Monocytes % 12.8 %; Neutrophils % 70.3 %; Nucleated Red Blood Cells % 0 %; Platelet Count 437 10^3/cmm (130-400); Red Blood Count 4.03 10^6/uL (4.1-5.3); Red Cell Distribution Width 13.7 % (12.1-15.1); White Blood Count 10.8 10^3/uL (4.0-10.0)
[2020-09-24 14:33] LABS: Slide Review Slide Review Perform
[2020-09-27] MEDS: sodium chloride 0.9% 1,000 ML 999 ML IV (13:30)
[2020-09-27 14:28] LABS: Basophils # 0.1 10^3/uL (0.0-0.1); Basophils % 1.1 %; Eosinophils % 0.1 %; Hematocrit 36.4 % (37.0-47.0); Hemoglobin 11.8 g/dL (11.5-15.3); Lymphocytes # 1.3 10^3/uL (0.8-4.8); Lymphocytes % 14.2 %; Mean Corpuscular HGB Conc 32.4 g/dL (30.0-36.0); Mean Corpuscular Hemoglobin 29.8 pg (28.0-34.0); Mean Corpuscular Volume 91.9 fL (81-99); Monocytes # 1.2 10^3/uL (0.2-0.9); Monocytes % 12.9 %; Neutrophils # 6.34 10^3/uL (1.8-7.7); Neutrophils % 70.5 %; Nucleated Red Blood Cells % 0 %; Platelet Count 494 10^3/cmm (130-400); Red Blood Count 3.96 10^6/uL (4.1-5.3); Red Cell Distribution Width 14.2 % (12.1-15.1)
[2020-10-01] MEDS: sodium chloride 0.9% 1,000 ML 999 ML IV (13:53)
[2020-10-01 16:10] LABS: Basophils # 0.1 10^3/uL (0.0-0.1); Basophils % 1.6 %; Eosinophils % 0.1 %; Hematocrit 35.5 % (37.0-47.0); Hemoglobin 11.4 g/dL (11.5-15.3); Lymphocytes # 1.3 10^3/uL (0.8-4.8); Lymphocytes % 18.8 %; Mean Corpuscular HGB Conc 32.1 g/dL (30.0-36.0); Mean Corpuscular Hemoglobin 30.3 pg (28.0-34.0); Mean Corpuscular Volume 94.4 fL (81-99); Mean Platelet Volume 10.3 fL (7.4-10.4); Monocytes # 1.1 10^3/uL (0.2-0.9); Monocytes % 15.9 %; Neutrophils # 4.38 10^3/uL (1.8-7.7); Neutrophils % 63.2 %; Nucleated Red Blood Cells % 0 %; Platelet Count 448 10^3/cmm (130-400); Red Blood Count 3.76 10^6/uL (4.1-5.3); Red Cell Distribution Width 14.7 % (12.1-15.1); White Blood Count 6.9 10^3/uL (4.0-10.0)
[2020-10-01 16:42] LABS: Alanine Aminotransferase 10 U/L (0-33); Albumin Level 3.3 g/dL (3.5-5.2); Alkaline Phosphatase 72 IU/L (35-105); Anion Gap 14.5 (5-19); Aspartate Amino Transferase 15 U/L (0-32); Blood Urea Nitrogen 11 mg/dL (8-23); Calcium 8.7 mg/dL (8.5-10.5); Carbon Dioxide 23 mmol/L (22-29); Chloride 106 mmol/L (98-107); Globulin 2.3 g/dL (1.3-4.6); Glucose 88 mg/dL (65-115); Lactate Dehydrogenase 210 U/L (135-214); Osmolality Calculated 289 mOsm/kg (285-295); Potassium 3.5 mmol/L (3.5-5.1); Sodium 140 mmol/L (136-145); Total Bilirubin 0.3 mg/dL (0.15-1.2); Total Protein 5.6 g/dL (6.6-8.7)
== END 2020-10-03 23:59 | disposition home or self-care (01) ==
LOC: ONCMED 05:50
PROVIDERS: Internal Medicine Medical Oncology; PCP Family Medicine; Visit Provider Internal Medicine Medical Oncology
DX: C85.13 Unspecified B-cell lymphoma, intra-abdominal lymph nodes (principal); Z79.899 Other long term (current) drug therapy
CPT/HCPCS: 36415; 80053; 83615; 85025; 86850; 86900; 96360; 96361; 96374; 96376; J1642; J7030

== ENCOUNTER 2020-11-01 05:49 | Outpatient (RCR) | payer MEDICARE, OTHER, SELFPAY ==
[2020-10-09] MEDS: sodium chloride 0.9% 1,000 ML 999 ML IV (13:08)
[2020-10-09] MEDS: pegfilgrastim-bmez 6 mg/0.6 mL SYR SUBCUT (13:10)
[2020-10-11] MEDS: sodium chloride 0.9% 1,000 ML 999 ML IV (12:15)
[2020-10-11 12:43] LABS: Basophils # 0.1 10^3/uL (0.0-0.1); Basophils % 0.7 %; Eosinophils # 0.1 10^3/uL (0.0-0.8); Hematocrit 29.6 % (37.0-47.0); Hemoglobin 10.1 g/dL (11.5-15.3); Lymphocytes # 0.4 10^3/uL (0.8-4.8); Mean Corpuscular HGB Conc 34.1 g/dL (30.0-36.0); Mean Corpuscular Hemoglobin 31.3 pg (28.0-34.0); Mean Corpuscular Volume 91.6 fL (81-99); Mean Platelet Volume 11.1 fL (7.4-10.4); Monocytes % 0.1 %; Neutrophils # 11.48 10^3/uL (1.8-7.7); Neutrophils % 85.2 %; Nucleated Red Blood Cells % 0 %; Platelet Count 180 10^3/cmm (130-400); Red Blood Count 3.23 10^6/uL (4.1-5.3); Red Cell Distribution Width 14.7 % (12.1-15.1); White Blood Count 13.5 10^3/uL (4.0-10.0)
[2020-10-11 13:03] LABS: Alanine Aminotransferase 15 U/L (0-33); Alkaline Phosphatase 63 IU/L (35-105); Anion Gap 10.5 (5-19); Aspartate Amino Transferase 11 U/L (0-32); Blood Urea Nitrogen 14 mg/dL (8-23); Calcium 8.1 mg/dL (8.5-10.5); Carbon Dioxide 27 mmol/L (22-29); Chloride 107 mmol/L (98-107); Globulin 1.8 g/dL (1.3-4.6); Glucose 109 mg/dL (65-115); Lactate Dehydrogenase 199 U/L (135-214); Osmolality Calculated 293 mOsm/kg (285-295); Potassium 3.5 mmol/L (3.5-5.1); Sodium 141 mmol/L (136-145); Total Bilirubin 0.4 mg/dL (0.15-1.2); Total Protein 4.8 g/dL (6.6-8.7)
[2020-10-11 13:04] LABS: Slide Review Slide Review Perform
[2020-10-15] MEDS: sodium chloride 0.9% 500 ML 999 ML IV (12:15)
[2020-10-15 12:31] LABS: Basophils # 0.1 10^3/uL (0.0-0.1); Basophils % 1.3 %; Eosinophils # 0.1 10^3/uL (0.0-0.8); Eosinophils % 1.5 %; Hemoglobin 11.2 g/dL (11.5-15.3); Lymphocytes # 0.8 10^3/uL (0.8-4.8); Lymphocytes % 13.5 %; Mean Corpuscular HGB Conc 33.9 g/dL (30.0-36.0); Mean Corpuscular Hemoglobin 30.9 pg (28.0-34.0); Mean Corpuscular Volume 91.2 fL (81-99); Mean Platelet Volume 11.8 fL (7.4-10.4); Monocytes # 1.2 10^3/uL (0.2-0.9); Monocytes % 18.7 %; Neutrophils # 3.31 10^3/uL (1.8-7.7); Neutrophils % 53.6 %; Nucleated Red Blood Cells % 0.6 %; Platelet Count 121 10^3/cmm (130-400); Positive C 1; Positive M 1; Red Blood Count 3.62 10^6/uL (4.1-5.3); Red Cell Distribution Width 14.6 % (12.1-15.1); White Blood Count 6.2 10^3/uL (4.0-10.0)
[2020-10-15 12:51] LABS: Slide Review Slide Review Perform
[2020-10-15 13:04] LABS: Alanine Aminotransferase 14 U/L (0-33); Albumin Level 3.5 g/dL (3.5-5.2); Alkaline Phosphatase 80 IU/L (35-105); Anion Gap 15.6 (5-19); Aspartate Amino Transferase 13 U/L (0-32); Blood Urea Nitrogen 9 mg/dL (8-23); Calcium 8.7 mg/dL (8.5-10.5); Carbon Dioxide 24 mmol/L (22-29); Chloride 101 mmol/L (98-107); Globulin 2.4 g/dL (1.3-4.6); Glucose 109 mg/dL (65-115); Lactate Dehydrogenase 270 U/L (135-214); Osmolality Calculated 283 mOsm/kg (285-295); Potassium 3.6 mmol/L (3.5-5.1); Sodium 137 mmol/L (136-145); Total Bilirubin 0.4 mg/dL (0.15-1.2); Total Protein 5.9 g/dL (6.6-8.7)
[2020-10-18 12:34] LABS: Hematocrit 32.7 % (37.0-47.0); Hemoglobin 10.9 g/dL (11.5-15.3); Mean Corpuscular HGB Conc 33.3 g/dL (30.0-36.0); Mean Corpuscular Hemoglobin 31.1 pg (28.0-34.0); Mean Corpuscular Volume 93.2 fL (81-99); Mean Platelet Volume 10.6 fL (7.4-10.4); Platelet Count 247 10^3/cmm (130-400); Red Blood Count 3.51 10^6/uL (4.1-5.3); Red Cell Distribution Width 16.1 % (12.1-15.1); White Blood Count 11.9 10^3/uL (4.0-10.0)
[2020-10-18 13:51] LABS: Slide Review Slide Review Perform
[2020-10-18 13:52] LABS: Absolute Neutrophil 9.6 10^3/cmm (1.4-6.5); Band Neutrophils Absolute 0.6 10^3/cmm (0.0-1.2); Eosinophils 0 %; Lymphocytes 12 %; Lymphocytes Absolute 1.4 10^3/cmm (1.2-3.4); Monocytes Absolute 0.6 10^3/cmm (0.1-0.6); Platelet Estimate Normal (Normal); Segmented Neutrophils 76 %; Total Cells Counted 100 (0-100)
[2020-10-18 13:54] LABS: Anisocytosis Trace
[2020-10-22 10:29] LABS: Basophils # 0.1 10^3/uL (0.0-0.1); Basophils % 1.3 %; Eosinophils % 0.3 %; Hematocrit 32.4 % (37.0-47.0); Hemoglobin 10.4 g/dL (11.5-15.3); Lymphocytes # 1.1 10^3/uL (0.8-4.8); Lymphocytes % 13.5 %; Mean Corpuscular HGB Conc 32.1 g/dL (30.0-36.0); Mean Corpuscular Hemoglobin 30.7 pg (28.0-34.0); Mean Corpuscular Volume 95.6 fL (81-99); Monocytes # 1.1 10^3/uL (0.2-0.9); Neutrophils # 5.46 10^3/uL (1.8-7.7); Neutrophils % 69.4 %; Nucleated Red Blood Cells % 0 %; Platelet Count 409 10^3/cmm (130-400); Red Blood Count 3.39 10^6/uL (4.1-5.3); Red Cell Distribution Width 17.2 % (12.1-15.1); White Blood Count 7.9 10^3/uL (4.0-10.0)
[2020-11-01 12:33] LABS: Basophils # 0.2 10^3/uL (0.0-0.1); Basophils % 0.7 %; Eosinophils # 0.1 10^3/uL (0.0-0.8); Eosinophils % 0.4 %; Hematocrit 28.8 % (37.0-47.0); Hemoglobin 9.5 g/dL (11.5-15.3); Lymphocytes # 0.5 10^3/uL (0.8-4.8); Lymphocytes % 2.5 %; Mean Corpuscular Hemoglobin 31.3 pg (28.0-34.0); Mean Corpuscular Volume 94.7 fL (81-99); Mean Platelet Volume 10.5 fL (7.4-10.4); Monocytes % 0.1 %; Neutrophils # 17.41 10^3/uL (1.8-7.7); Neutrophils % 83.1 %; Nucleated Red Blood Cells % 0 %; Platelet Count 187 10^3/cmm (130-400); Red Blood Count 3.04 10^6/uL (4.1-5.3); Red Cell Distribution Width 17.2 % (12.1-15.1)
[2020-11-01 12:50] LABS: Slide Review Slide Review Perform
== END 2020-11-03 23:59 | disposition home or self-care (01) ==
LOC: ONCMED 05:49
PROVIDERS: Internal Medicine Medical Oncology; PCP Family Medicine; Visit Provider Internal Medicine Medical Oncology
DX: C85.13 Unspecified B-cell lymphoma, intra-abdominal lymph nodes (principal); E03.9 Hypothyroidism, unspecified; G43.919 Migraine, unspecified, intractable, without status migrainosus; I47.1 Supraventricular tachycardia; F41.9 Anxiety disorder, unspecified; F32.9 Major depressive disorder, single episode, unspecified; Z79.899 Other long term (current) drug therapy
CPT/HCPCS: 36415; 36591; 36592; 80053; 83615; 85007; 85025; 96360; 96372; J1642; J7030; J7040; Q5120

== ENCOUNTER 2020-12-03 05:35 | Outpatient (RCR) | payer MEDICARE, OTHER, SELFPAY ==
[2020-11-05 13:21] LABS: Basophils % 4.3 %; Eosinophils % 2.9 %; Lymphocytes # 0.3 10^3/uL (0.8-4.8); Lymphocytes % 48.6 %; Mean Corpuscular HGB Conc 33.3 g/dL (30.0-36.0); Mean Corpuscular Hemoglobin 31.6 pg (28.0-34.0); Mean Corpuscular Volume 94.7 fL (81-99); Mean Platelet Volume 12.8 fL (7.4-10.4); Monocytes # 0.2 10^3/uL (0.2-0.9); Monocytes % 27.1 %; Neutrophils % 17.1 %; Nucleated Red Blood Cells % 0 %; Platelet Count 65 10^3/cmm (130-400); Positive M 1; Red Blood Count 2.85 10^6/uL (4.1-5.3)
[2020-11-05 14:09] LABS: Neutrophils # 0.12 10^3/uL (1.8-7.7); Slide Review Slide Review Perform; White Blood Count 0.7 10^3/uL (4.0-10.0)
[2020-11-08 13:13] LABS: Basophils % 0.4 %; Eosinophils # 0.1 10^3/uL (0.0-0.8); Eosinophils % 0.6 %; Hematocrit 28.6 % (37.0-47.0); Hemoglobin 9.3 g/dL (11.5-15.3); Lymphocytes # 0.8 10^3/uL (0.8-4.8); Lymphocytes % 10.1 %; Mean Corpuscular HGB Conc 32.5 g/dL (30.0-36.0); Mean Corpuscular Volume 98.3 fL (81-99); Mean Platelet Volume 11.2 fL (7.4-10.4); Monocytes # 1.2 10^3/uL (0.2-0.9); Monocytes % 15.5 %; Neutrophils # 5.09 10^3/uL (1.8-7.7); Neutrophils % 63.9 %; Nucleated Red Blood Cells # 0.1 /100WBC; Nucleated Red Blood Cells % 0.9 %; Platelet Count 212 10^3/cmm (130-400); Positive C 1; Positive M 1; Red Blood Count 2.91 10^6/uL (4.1-5.3); Red Cell Distribution Width 17.7 % (12.1-15.1)
[2020-11-12 12:58] LABS: Basophils # 0.1 10^3/uL (0.0-0.1); Basophils % 0.9 %; Eosinophils % 0.1 %; Hemoglobin 9.6 g/dL (11.5-15.3); Lymphocytes # 0.9 10^3/uL (0.8-4.8); Mean Corpuscular Hemoglobin 31.8 pg (28.0-34.0); Mean Corpuscular Volume 99.3 fL (81-99); Monocytes # 1.2 10^3/uL (0.2-0.9); Monocytes % 15.7 %; Neutrophils # 5.53 10^3/uL (1.8-7.7); Neutrophils % 70.8 %; Nucleated Red Blood Cells % 0 %; Platelet Count 391 10^3/cmm (130-400); Red Blood Count 3.02 10^6/uL (4.1-5.3); White Blood Count 7.8 10^3/uL (4.0-10.0)
[2020-11-22] MEDS: sodium chloride 0.9% 1,000 ML 999 ML IV (14:30)
[2020-11-22 14:47] LABS: Basophils # 0.1 10^3/uL (0.0-0.1); Basophils % 0.9 %; Eosinophils # 0.1 10^3/uL (0.0-0.8); Eosinophils % 0.5 %; Hematocrit 27.6 % (37.0-47.0); Hemoglobin 9.1 g/dL (11.5-15.3); Lymphocytes # 0.4 10^3/uL (0.8-4.8); Lymphocytes % 3.2 %; Mean Corpuscular Hemoglobin 32.9 pg (28.0-34.0); Mean Corpuscular Volume 99.6 fl (81-99); Mean Platelet Volume 10.2 fL (7.4-10.4); Monocytes % 0.2 %; Neutrophils # 10.17 10^3/uL (1.8-7.7); Nucleated Red Blood Cells % 0 %; Platelet Count 133 10^3/cmm (130-400); Positive C 1; Positive M 1; Red Blood Count 2.77 10^6/uL (4.1-5.3); Red Cell Distribution Width 17.4 % (12.1-15.1); White Blood Count 12.1 10^3/uL (4.0-10.0)
[2020-11-22 15:10] LABS: Slide Review Slide Review Perform
[2020-11-26] MEDS: sodium chloride 0.9% 1,000 ML 999 ML IV (14:15)
[2020-11-26] MEDS: fluconazole premix 200 MG/100 ML PREMIX 100 MG IV (14:25)
[2020-11-26 15:14] LABS: Basophils % 3.6 %; Eosinophils % 1.8 %; Hemoglobin 8.3 g/dL (11.5-15.3); Lymphocytes # 0.2 10^3/uL (0.8-4.8); Lymphocytes % 34.5 %; Mean Corpuscular HGB Conc 33.2 g/dL (30.0-36.0); Mean Corpuscular Hemoglobin 32.8 pg (28.0-34.0); Mean Corpuscular Volume 98.8 fl (81-99); Mean Platelet Volume 12.8 fL (7.4-10.4); Monocytes # 0.2 10^3/uL (0.2-0.9); Monocytes % 34.5 %; Neutrophils % 25.6 %; Nucleated Red Blood Cells % 0 %; Platelet Count 45 10^3/cmm (130-400); Red Blood Count 2.53 10^6/uL (4.1-5.3); Red Cell Distribution Width 15.5 % (12.1-15.1)
[2020-11-26 15:23] LABS: Neutrophils # 0.14 10^3/uL (1.8-7.7); White Blood Count 0.6 10^3/uL (4.0-10.0)
[2020-11-29 13:28] LABS: Basophils # 0.1 10^3/uL (0.0-0.1); Eosinophils % 0.2 %; Hematocrit 25.6 % (37.0-47.0); Hemoglobin 8.3 g/dL (11.5-15.3); Lymphocytes # 0.6 10^3/uL (0.8-4.8); Lymphocytes % 13.4 %; Mean Corpuscular HGB Conc 32.4 g/dL (30.0-36.0); Mean Corpuscular Hemoglobin 33.5 pg (28.0-34.0); Mean Corpuscular Volume 103.2 fl (81-99); Mean Platelet Volume 10.8 fL (7.4-10.4); Monocytes # 0.8 10^3/uL (0.2-0.9); Monocytes % 16.5 %; Neutrophils # 3.16 10^3/uL (1.8-7.7); Neutrophils % 66.2 %; Nucleated Red Blood Cells % 0.4 %; Platelet Count 159 10^3/cmm (130-400); Red Blood Count 2.48 10^6/uL (4.1-5.3); Red Cell Distribution Width 17.1 % (12.1-15.1); White Blood Count 4.8 10^3/uL (4.0-10.0)
[2020-12-03 14:28] LABS: Basophils % 0.7 %; Eosinophils % 0.2 %; Hematocrit 29.5 % (37.0-47.0); Hemoglobin 9.6 g/dL (11.5-15.3); Lymphocytes # 0.7 10^3/uL (0.8-4.8); Lymphocytes % 11.7 %; Mean Corpuscular HGB Conc 32.5 g/dL (30.0-36.0); Mean Corpuscular Volume 104.6 fl (81-99); Mean Platelet Volume 9.9 fL (7.4-10.4); Monocytes # 1.1 10^3/uL (0.2-0.9); Monocytes % 19.8 %; Neutrophils # 3.82 10^3/uL (1.8-7.7); Neutrophils % 66.4 %; Nucleated Red Blood Cells % 0 %; Platelet Count 441 10^3/cmm (130-400); Red Blood Count 2.82 10^6/uL (4.1-5.3); Red Cell Distribution Width 18.5 % (12.1-15.1); White Blood Count 5.8 10^3/uL (4.0-10.0)
[2020-12-03 14:48] LABS: Alanine Aminotransferase 9 U/L (0-33); Albumin Level 3.7 g/dL (3.5-5.2); Alkaline Phosphatase 87 IU/L (35-105); Anion Gap 16.5 (5-19); Aspartate Amino Transferase 13 U/L (0-32); Blood Urea Nitrogen 7 mg/dL (8-23); Calcium 9.1 mg/dL (8.5-10.5); Carbon Dioxide 23 mmol/L (22-29); Chloride 102 mmol/L (98-107); Globulin 2.6 g/dL (1.3-4.6); Glucose 93 mg/dL (65-115); Lactate Dehydrogenase 252 U/L (135-214); Osmolality Calculated 282 mOsm/kg (285-295); Potassium 4.5 mmol/L (3.5-5.1); Sodium 137 mmol/L (136-145); Total Bilirubin 0.2 mg/dL (0.15-1.2); Total Protein 6.3 g/dL (6.6-8.7)
== END 2020-12-04 23:59 | disposition home or self-care (01) ==
LOC: ONCMED 05:35
PROVIDERS: Internal Medicine Medical Oncology; PCP Family Medicine; Visit Provider Internal Medicine Medical Oncology
DX: C85.13 Unspecified B-cell lymphoma, intra-abdominal lymph nodes (principal); Z79.899 Other long term (current) drug therapy
CPT/HCPCS: 36415; 36591; 80053; 83615; 85025; 86850; 86900; 96360; J1450; J7030

== ENCOUNTER 2021-01-02 09:20 | Outpatient (RCR) | payer MEDICARE, OTHER, SELFPAY ==
[2020-12-13] MEDS: sodium chloride 0.9% 1,000 ML 999 ML IV (14:30)
[2020-12-13 15:18] LABS: Basophils # 0.1 10^3/uL (0.0-0.1); Basophils % 0.6 %; Eosinophils # 0.1 10^3/uL (0.0-0.8); Eosinophils % 0.3 %; Hematocrit 27.7 % (37.0-47.0); Hemoglobin 9.1 g/dL (11.5-15.3); Lymphocytes # 0.3 10^3/uL (0.8-4.8); Lymphocytes % 1.4 %; Mean Corpuscular HGB Conc 32.9 g/dL (30.0-36.0); Mean Corpuscular Hemoglobin 34.1 pg (28.0-34.0); Mean Corpuscular Volume 103.7 fl (81-99); Mean Platelet Volume 10.7 fL (7.4-10.4); Monocytes % 0.1 %; Neutrophils # 18.95 10^3/uL (1.8-7.7); Neutrophils % 85.7 %; Nucleated Red Blood Cells % 0 %; Platelet Count 104 10^3/cmm (130-400); Red Blood Count 2.67 10^6/uL (4.1-5.3); Red Cell Distribution Width 15.6 % (12.1-15.1); White Blood Count 22.1 10^3/uL (4.0-10.0)
[2020-12-13 15:52] LABS: Alanine Aminotransferase 17 U/L (0-33); Albumin Level 3.1 g/dL (3.5-5.2); Alkaline Phosphatase 72 IU/L (35-105); Aspartate Amino Transferase 23 U/L (0-32); Blood Urea Nitrogen 18 mg/dL (8-23); Calcium 8.2 mg/dL (8.5-10.5); Carbon Dioxide 25 mmol/L (22-29); Chloride 105 mmol/L (98-107); Globulin 1.8 g/dL (1.3-4.6); Glucose 115 mg/dL (65-115); Lactate Dehydrogenase 266 U/L (135-214); Osmolality Calculated 293 mOsm/kg (285-295); Sodium 140 mmol/L (136-145); Total Bilirubin 0.2 mg/dL (0.15-1.2); Total Protein 4.9 g/dL (6.6-8.7)
[2020-12-13 17:43] LABS: Slide Review Slide Review Perform
[2020-12-17] MEDS: sodium chloride 0.9% 1,000 ML 999 ML IV (14:20)
[2020-12-17 14:52] LABS: Basophils % 4.7 %; Eosinophils % 1.2 %; Hematocrit 23.9 % (37.0-47.0); Lymphocytes # 0.2 10^3/uL (0.8-4.8); Lymphocytes % 17.6 %; Mean Corpuscular HGB Conc 33.5 g/dL (30.0-36.0); Mean Corpuscular Hemoglobin 34.2 pg (28.0-34.0); Mean Corpuscular Volume 102.1 fl (81-99); Mean Platelet Volume 13.1 fL (7.4-10.4); Monocytes # 0.1 10^3/uL (0.2-0.9); Monocytes % 8.2 %; Nucleated Red Blood Cells % 0 %; Platelet Count 39 10^3/cmm (130-400); Red Blood Count 2.34 10^6/uL (4.1-5.3); Red Cell Distribution Width 14.1 % (12.1-15.1)
[2020-12-17] MEDS: alteplase 1 mg/mL SDV 2 mL 2 MG INTRACATH (15:40)
[2020-12-17 16:19] LABS: Slide Review Slide Review Perform
[2020-12-17 16:22] LABS: Neutrophils # 0.38 10^3/uL (1.8-7.7); White Blood Count 0.9 10^3/uL (4.0-10.0)
[2020-12-17 16:23] LABS: Neutrophils % 68.2 %
[2020-12-18] VITALS (9 sets, daily range): BP systolic 115–128; BP diastolic 62–78; PULSE 77–89; RESP 16–18; TEMP 36.7–37.1; O2SAT 96–100
[2020-12-18] MEDS: acetaminophen 325 mg Tablet 650 MG PO (09:30)
[2020-12-18] MEDS: sodium chloride 0.9% 250 ML 999 ML IV ×2 (09:40→09:45)
[2020-12-18] MEDS: FUROsemide 10 mg/mL SDV 2mL 20 MG IVP (12:20)
[2020-12-18] MEDS: levofloxacin-dextrose 5% 750 mg-150 mL Premix 100 MG IV (14:50)
[2020-12-19] MEDS: diphenhydrAMINE 25 mg Capsule PO (09:30)
[2020-12-19] MEDS: levofloxacin-dextrose 5% 750 mg-150 mL Premix 100 MG IV (09:40)
[2020-12-20] MEDS: levofloxacin-dextrose 5% 750 mg-150 mL Premix 100 MG IV (09:15)
[2020-12-20 10:03] LABS: Basophils # 0.1 10^3/uL (0.0-0.1); Basophils % 1.9 %; Eosinophils % 0.2 %; Hematocrit 31.2 % (37.0-47.0); Hemoglobin 10.3 g/dL (11.5-15.3); Lymphocytes # 0.4 10^3/uL (0.8-4.8); Lymphocytes % 8.9 %; Mean Corpuscular Hemoglobin 32.5 pg (28.0-34.0); Mean Corpuscular Volume 98.4 fl (81-99); Mean Platelet Volume 12.2 fL (7.4-10.4); Monocytes # 0.8 10^3/uL (0.2-0.9); Monocytes % 18.5 %; Neutrophils # 2.69 10^3/uL (1.8-7.7); Neutrophils % 64.5 %; Nucleated Red Blood Cells % 0.5 %; Platelet Count 96 10^3/cmm (130-400); Red Blood Count 3.17 10^6/uL (4.1-5.3); Red Cell Distribution Width 17.2 % (12.1-15.1); White Blood Count 4.2 10^3/uL (4.0-10.0)
[2020-12-20 10:33] LABS: Slide Review Slide Review Perform
[2020-12-24 14:42] LABS: Basophils # 0.1 10^3/uL (0.0-0.1); Basophils % 1.1 %; Eosinophils % 0.3 %; Hematocrit 32.3 % (37.0-47.0); Hemoglobin 10.6 g/dL (11.5-15.3); Lymphocytes # 0.7 10^3/uL (0.8-4.8); Lymphocytes % 10.9 %; Mean Corpuscular HGB Conc 32.8 g/dL (30.0-36.0); Mean Corpuscular Hemoglobin 33.5 pg (28.0-34.0); Mean Corpuscular Volume 102.2 fl (81-99); Mean Platelet Volume 10.3 fL (7.4-10.4); Monocytes # 1.3 10^3/uL (0.2-0.9); Monocytes % 20.4 %; Neutrophils # 4.15 10^3/uL (1.8-7.7); Neutrophils % 65.7 %; Nucleated Red Blood Cells % 0 %; Platelet Count 265 10^3/cmm (130-400); Red Blood Count 3.16 10^6/uL (4.1-5.3); White Blood Count 6.3 10^3/uL (4.0-10.0)
[2021-01-02] MEDS: pegfilgrastim-bmez 6 mg/0.6 mL SYR SUBCUT (13:11)
[2021-01-02] MEDS: sodium chloride 0.9% 1,000 ML 999 ML IV (13:11)
[2021-01-02 13:40] LABS: Basophils # 0.1 10^3/uL (0.0-0.1); Basophils % 0.3 %; Eosinophils % 0.1 %; Hematocrit 30.9 % (37.0-47.0); Hemoglobin 10.1 g/dL (11.5-15.3); Lymphocytes # 0.3 10^3/uL (0.8-4.8); Lymphocytes % 1.3 %; Mean Corpuscular HGB Conc 32.7 g/dL (30.0-36.0); Mean Corpuscular Hemoglobin 33.2 pg (28.0-34.0); Mean Corpuscular Volume 101.6 fl (81-99); Mean Platelet Volume 9.8 fL (7.4-10.4); Monocytes % 0.1 %; Neutrophils # 21.94 10^3/uL (1.8-7.7); Nucleated Red Blood Cells % 0 %; Platelet Count 153 10^3/cmm (130-400); Red Blood Count 3.04 10^6/uL (4.1-5.3); Red Cell Distribution Width 15.9 % (12.1-15.1); White Blood Count 23.9 10^3/uL (4.0-10.0)
[2021-01-02 14:32] LABS: Slide Review Slide Review Perform
== END 2021-01-03 23:59 | disposition home or self-care (01) ==
LOC: ONCMED 09:20
PROVIDERS: PCP Family Medicine; Visit Provider Internal Medicine Medical Oncology
DX: Z51.11 Encounter for antineoplastic chemotherapy (principal); C85.13 Unspecified B-cell lymphoma, intra-abdominal lymph nodes; Z79.899 Other long term (current) drug therapy
CPT/HCPCS: 36430; 36591; 36593; 80053; 83615; 85025; 86850; 86900; 86920; 96360; 96361; 96365; 96366; 96372; 96374; J1940; J1956; J2997; J7030; J7050; P9040; Q5120

== ENCOUNTER 2021-01-28 06:33 | Outpatient (RCR) | payer MEDICARE, OTHER, SELFPAY ==
[2021-01-04] MEDS: sodium chloride 0.9% 1,000 ML 999 ML IV (09:45)
[2021-01-07] MEDS: sodium chloride 0.9% 500 ML 999 ML IV (14:20)
[2021-01-07 14:37] LABS: Hematocrit 27.9 % (37.0-47.0); Hemoglobin 9.3 g/dL (11.5-15.3); Mean Corpuscular HGB Conc 33.3 g/dL (30.0-36.0); Mean Corpuscular Hemoglobin 33.1 pg (28.0-34.0); Mean Corpuscular Volume 99.3 fl (81-99); Mean Platelet Volume 15.2 fL (7.4-10.4); Platelet Count 29 10^3/cmm (130-400); Red Blood Count 2.81 10^6/uL (4.1-5.3); Red Cell Distribution Width 14.4 % (12.1-15.1); White Blood Count 1.1 10^3/uL (4.0-10.0)
[2021-01-07 15:42] LABS: Slide Review Slide Review Perform
[2021-01-10 14:34] LABS: Hematocrit 28.4 % (37.0-47.0); Hemoglobin 9.1 g/dL (11.5-15.3); Mean Corpuscular Volume 102.9 fl (81-99); Platelet Count 95 10^3/cmm (130-400); Red Blood Count 2.76 10^6/uL (4.1-5.3)
[2021-01-10 15:27] LABS: Total Cells Counted 100 (0-100)
[2021-01-10 15:28] LABS: Band Neutrophils Absolute 1.2 10^3/cmm (0.0-1.2); Eosinophils 1 %; Lymphocytes 12 %; Monocytes Absolute 0.7 10^3/cmm (0.1-0.6); Segmented Neutrophils 62 %
[2021-01-10 15:29] LABS: Absolute Neutrophil 6.2 10^3/cmm (1.4-6.5); Platelet Estimate Decreased (Normal)
[2021-01-10 15:30] LABS: Macrocytosis 1+
[2021-01-10 15:31] LABS: Anisocytosis Trace; Hypochromasia Trace; Ovalocytes Trace; Tear Drop Cells Trace
[2021-01-14 14:54] LABS: Basophils # 0.1 10^3/uL (0.0-0.1); Basophils % 0.6 %; Eosinophils % 0.3 %; Hematocrit 30.5 % (37.0-47.0); Hemoglobin 9.8 g/dL (11.5-15.3); Lymphocytes # 0.8 10^3/uL (0.8-4.8); Lymphocytes % 7.8 %; Mean Corpuscular HGB Conc 32.1 g/dL (30.0-36.0); Mean Corpuscular Hemoglobin 33.2 pg (28.0-34.0); Mean Corpuscular Volume 103.4 fl (81-99); Monocytes # 1.8 10^3/uL (0.2-0.9); Monocytes % 16.3 %; Neutrophils # 8.02 10^3/uL (1.8-7.7); Neutrophils % 74.1 %; Nucleated Red Blood Cells % 0 %; Platelet Count 232 10^3/cmm (130-400); Red Blood Count 2.95 10^6/uL (4.1-5.3); Red Cell Distribution Width 17.5 % (12.1-15.1); White Blood Count 10.8 10^3/uL (4.0-10.0)
[2021-01-14] MEDS: alteplase 1 mg/mL SDV 2 mL 2 MG INTRACATH (15:20)
[2021-01-14 15:40] LABS: Alanine Aminotransferase 9 U/L (0-33); Albumin Level 3.3 g/dL (3.5-5.2); Alkaline Phosphatase 100 IU/L (35-105); Anion Gap 11.6 (5-19); Aspartate Amino Transferase 9 U/L (0-32); Blood Urea Nitrogen 9 mg/dL (8-23); Calcium 8.6 mg/dL (8.5-10.5); Carbon Dioxide 27 mmol/L (22-29); Chloride 104 mmol/L (98-107); Globulin 2.1 g/dL (1.3-4.6); Glucose 78 mg/dL (65-115); Lactate Dehydrogenase 280 U/L (135-214); Osmolality Calculated 286 mOsm/kg (285-295); Potassium 3.6 mmol/L (3.5-5.1); Sodium 139 mmol/L (136-145); Total Bilirubin 0.2 mg/dL (0.15-1.2); Total Protein 5.4 g/dL (6.6-8.7)
[2021-01-17 15:29] LABS: Basophils # 0.1 10^3/uL (0.0-0.1); Basophils % 1.4 %; Eosinophils % 0.3 %; Hematocrit 30.9 % (37.0-47.0); Hemoglobin 10.2 g/dL (11.5-15.3); Lymphocytes % 13.5 %; Mean Platelet Volume 10.1 fL (7.4-10.4); Monocytes # 1.1 10^3/uL (0.2-0.9); Monocytes % 15.3 %; Neutrophils # 5.06 10^3/uL (1.8-7.7); Neutrophils % 68.8 %; Nucleated Red Blood Cells % 0 %; Platelet Count 322 10^3/cmm (130-400); Red Cell Distribution Width 17.4 % (12.1-15.1); White Blood Count 7.3 10^3/uL (4.0-10.0)
[2021-01-17 15:45] LABS: Alanine Aminotransferase 9 U/L (0-33); Albumin Level 3.5 g/dL (3.5-5.2); Alkaline Phosphatase 94 IU/L (35-105); Anion Gap 14.2 (5-19); Aspartate Amino Transferase 11 U/L (0-32); Blood Urea Nitrogen 9 mg/dL (8-23); Calcium 8.9 mg/dL (8.5-10.5); Carbon Dioxide 24 mmol/L (22-29); Chloride 102 mmol/L (98-107); Globulin 2.4 g/dL (1.3-4.6); Glucose 83 mg/dL (65-115); Lactate Dehydrogenase 306 U/L (135-214); Osmolality Calculated 280 mOsm/kg (285-295); Potassium 4.2 mmol/L (3.5-5.1); Sodium 136 mmol/L (136-145); Total Bilirubin 0.2 mg/dL (0.15-1.2); Total Protein 5.9 g/dL (6.6-8.7)
[2021-01-21] MEDS: alteplase 1 mg/mL SDV 2 mL 2 MG INTRACATH (14:15)
[2021-01-21 15:39] LABS: Basophils # 0.1 10^3/uL (0.0-0.1); Basophils % 1.9 %; Eosinophils % 0.2 %; Hemoglobin 9.7 g/dL (11.5-15.3); Lymphocytes # 0.8 10^3/uL (0.8-4.8); Lymphocytes % 15.6 %; Mean Corpuscular HGB Conc 32.3 g/dL (30.0-36.0); Mean Corpuscular Hemoglobin 33.4 pg (28.0-34.0); Mean Corpuscular Volume 103.4 fl (81-99); Mean Platelet Volume 9.9 fL (7.4-10.4); Monocytes # 1.1 10^3/uL (0.2-0.9); Monocytes % 21.2 %; Neutrophils # 3.12 10^3/uL (1.8-7.7); Neutrophils % 60.9 %; Nucleated Red Blood Cells % 0 %; Platelet Count 294 10^3/cmm (130-400); Red Cell Distribution Width 16.5 % (12.1-15.1); White Blood Count 5.1 10^3/uL (4.0-10.0)
== END 2021-02-03 23:59 | disposition home or self-care (01) ==
LOC: ONCMED 06:33
PROVIDERS: PCP Family Medicine; Visit Provider Internal Medicine Medical Oncology
DX: C85.13 Unspecified B-cell lymphoma, intra-abdominal lymph nodes (principal); Z79.899 Other long term (current) drug therapy
CPT/HCPCS: 36415; 36591; 36593; 80053; 83615; 85007; 85025; 96360; 96374; 96523; J2997; J7030; J7040

== ENCOUNTER 2021-02-26 14:18 | Outpatient (RCR) | payer MEDICARE, OTHER, SELFPAY ==
[2021-02-26] MEDS: alteplase 1 mg/mL SDV 2 mL 2 MG IV (15:10)
[2021-02-26 16:42] LABS: Basophils # 0.1 10^3/uL (0.0-0.1); Eosinophils # 0.2 10^3/uL (0.0-0.8); Eosinophils % 3.5 %; Hematocrit 32.5 % (37.0-47.0); Hemoglobin 10.9 g/dL (11.5-15.3); Lymphocytes # 0.8 10^3/uL (0.8-4.8); Lymphocytes % 15.6 %; Mean Corpuscular HGB Conc 33.5 g/dL (30.0-36.0); Mean Corpuscular Hemoglobin 33.1 pg (28.0-34.0); Mean Corpuscular Volume 98.8 fl (81-99); Mean Platelet Volume 10.1 fL (7.4-10.4); Monocytes # 0.6 10^3/uL (0.2-0.9); Monocytes % 11.5 %; Neutrophils # 3.49 10^3/uL (1.8-7.7); Neutrophils % 68.2 %; Nucleated Red Blood Cells % 0 %; Platelet Count 232 10^3/cmm (130-400); Red Blood Count 3.29 10^6/uL (4.1-5.3); Red Cell Distribution Width 13.1 % (12.1-15.1); White Blood Count 5.1 10^3/uL (4.0-10.0)
== END 2021-03-05 23:59 | disposition home or self-care (01) ==
LOC: ONCMED 14:18
PROVIDERS: PCP Family Medicine; Visit Provider Internal Medicine Medical Oncology
DX: C85.13 Unspecified B-cell lymphoma, intra-abdominal lymph nodes (principal); Z79.899 Other long term (current) drug therapy
CPT/HCPCS: 36593; 85025; 86850; 86900; 96374; J2997

== ENCOUNTER → 2021-03-05 11:00 | Outpatient (BNVA) | payer MEDICARE, OTHER, SELFPAY | PROVIDERS: PCP Family Medicine; Visit Provider Family Medicine | DX: E03.9 Hypothyroidism, unspecified (principal); Z13.220 Encounter for screening for lipoid disorders; Z13.6 Encounter for screening for cardiovascular disorders; I47.1 Supraventricular tachycardia; Z85.72 Personal history of non-Hodgkin lymphomas; F33.0 Major depressive disorder, recurrent, mild; R53.83 Other fatigue | CPT/HCPCS: 80053; 80061; 82607; 82652; 84439; 84443; 84481 ==

== ENCOUNTER 2021-03-26 06:57 | Outpatient (RCR) | payer MEDICARE, OTHER, SELFPAY | END 2021-04-05 23:59 | disposition home or self-care (01) | LOC: ONCMED 06:57 | PROVIDERS: PCP Family Medicine; Visit Provider Internal Medicine Medical Oncology | DX: Z45.2 Encounter for adjustment and management of vascular access device (principal) | CPT/HCPCS: 96523 ==

== ENCOUNTER 2021-05-01 06:20 | Outpatient (RCR) | payer MEDICARE, OTHER, SELFPAY ==
[2021-04-29 14:39] LABS: Basophils % 0.6 %; Eosinophils # 0.1 10^3/uL (0.0-0.8); Hematocrit 37.9 % (37.0-47.0); Hemoglobin 12.5 g/dL (11.5-15.3); Lymphocytes # 0.6 10^3/uL (0.8-4.8); Lymphocytes % 16.8 %; Mean Corpuscular Hemoglobin 30.5 pg (28.0-34.0); Mean Corpuscular Volume 92.4 fl (81-99); Mean Platelet Volume 10.2 fL (7.4-10.4); Monocytes # 0.5 10^3/uL (0.2-0.9); Neutrophils # 2.14 10^3/uL (1.8-7.7); Neutrophils % 65.3 %; Nucleated Red Blood Cells % 0 %; Platelet Count 230 10^3/cmm (130-400); Red Cell Distribution Width 13.2 % (12.1-15.1); White Blood Count 3.3 10^3/uL (4.0-10.0)
[2021-04-29 15:00] LABS: Alanine Aminotransferase 9 U/L (0-33); Albumin Level 3.8 g/dL (3.5-5.2); Alkaline Phosphatase 141 IU/L (35-105); Anion Gap 14.1 (5-19); Aspartate Amino Transferase 15 U/L (0-32); Blood Urea Nitrogen 18 mg/dL (8-23); Calcium 8.4 mg/dL (8.5-10.5); Carbon Dioxide 26 mmol/L (22-29); Chloride 104 mmol/L (98-107); Globulin 1.8 g/dL (1.3-4.6); Glucose 99 mg/dL (65-115); Lactate Dehydrogenase 233 U/L (135-214); Osmolality Calculated 292 mOsm/kg (285-295); Potassium 4.1 mmol/L (3.5-5.1); Sodium 140 mmol/L (136-145); Total Bilirubin 0.3 mg/dL (0.15-1.2); Total Protein 5.6 g/dL (6.6-8.7)
[2021-05-01 23:14] LABS: Thyroid Stimulating Hormone 1.51 uIU/mL (0.27-4.20); Vitamin B12 400 pg/mL (232-1245)
--- NOTE | 2021-05-02 08:42 | ONC FU_ITS ---
Dr. Morrow Patient Follow-Up Note Patient: Radha Barajas Unit #: [id number]: 1945 Dicatated By: Shelton Morrow M.D.Date of Visit:May 01, 2021 Onc Med Follow-up/Prog Note Chief Complaint: Lymphoma. 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 On 08/25/2020 she had presented to the emergency room with pain in the upper abdomen/lower rib cage. Her CT abdomen/pelvis showed a large bulky mass in the left upper retroperitoneum centered in the expected location of the left adrenal gland. It measured 13.0 x 10.0 x 7.5 cm. There was additional adenopathy noted in the retroperitoneum and mesentery. The initial plan was to evaluate further as an outpatient. However, she returned to the emergency room 4 days later with worsening symptoms, and at that point arrangements were made for transfer to [facility] for admission. Her staging PET/CT showed large markedly hypermetabolic mass extending from the retrocrural fat to left upper retroperitoneum with involvement of the colonic wall at the splenic flexure. The mass measured 10.7 x 15.9 cm with maximum SUV 54. She began on steroid therapy with prednisone 100 mg daily and on 09/04/[address] directed biopsy of the mass. Pathology was consistent with high-grade lymphoma with flow cytometry positive for CD10, CD20, CD19, CD45, CD38, and lambda light chain and with FISH positive for the Myc and the BCL-2 rearrangements. It was negative for the BCL6 rearrangement. She underwent treatment through [facility] with 6 cycles of DA-EPOCH-R chemotherapy from 09/07/2020 through 12/26/2020. She was confirmed to have complete remission by interim PET/CT. She is now being followed on expectant management. Her other medical illnesses have included hypothyroidism, migraine headaches, and depression. She also has a history of supraventricular tachycardia. Prior surgeries were limited to hysterectomy/unilateral oophorectomy and tonsillectomy. She has a history of smoking up to a pack of cigarettes daily for almost 40 years, though off and on. She quit smoking in 2004. She is seen for a follow-up visit. She continues to show gradual recovery following her chemotherapy. She has been showing improvement in her activity tolerance, though she still tires out. She has started walking again, and she tries to get 5000 steps in on her Fitbit. However, when she does she is completely wiped out the following day. Her ECOG score is 1. She has good appetite. She has not had fever or night sweats. She complains of having a constantly runny nose. She has not had sore mouth or throat. She does not complain of cough, and she has not been having shortness of breath or chest pain. She has no GI complaints other than occasional acid reflux. Her bladder function is improved, and she now has just very occasional incontinence. She has joint pain, mainly in her left knee and somewhat in her knuckles. She says her knees occasionally get shaky. Over the last 3 to 4 weeks she has noticed increased tingling in her feet. Her fingers, though, have been getting better. She has been having some depression and some difficulty with concentration. Medications: buPROPion HCl ER (SR) 150 mg (of 150 mg) Tablet SR 24 HR Oral daily, Cetirizine HCl (10 mg) Tablet Oral daily, Levothyroxine Sodium (50 mcg) Tablet Oral daily, Pantoprazole Sodium (40 mg) Tablet, enteric coated Oral daily, Sertraline HCl (25 mg) Tablet Oral daily, SUMAtriptan Succinate Tablet Oral PRN Allergies: influenza vaccines and Iodinated Contrast Media. Vital Signs: Performed on May 01, 2021 13:10 Weight - 203.8 lbs (LOW) BSA - sq.m BMI - 0.00 (LOW) Temperature - 96.8 F (LOW) Pulse - 85 /min Respiration - 16 /min BP - 110/68 mm(hg) O2 Sat - 97 % Pain - 2 Fatigue - 0 Physical Examination: Constitutional - She looks pretty good generally, Eyes - Sclerae nonicteric. Conjunctivae clear, ENMT - No lesions noted in the oral cavity, Hematologic/Lymphatic - No cervical, clavicular, or axillary adenopathy, Respiratory - Lungs are clear with good air movement bilaterally, Cardiovascular - Heart rhythm is regular. There is no murmur, gallop, or rub noted, Abdomen - Soft. Liver and spleen are not enlarged. There is no abdominal mass or ascites noted and there is no inguinal adenopathy, Extremities - There is mild lower extremity edema, Neurologic - No focal neurologic deficits noted. Lab/Imaging: CBC shows hemoglobin 12.5 g, white blood cell count 3300, and platelet count 230,000. Comprehensive metabolic profile shows normal renal function with BUN 18 and creatinine 0.7 mg/dL. Alkaline phosphatase is mildly elevated at 141/105 IU/L. The bilirubin and the other liver enzymes are normal. LDH is slightly elevated at 233/214 U/L. TSH is normal at 1.51 ???IU/mL. B12 level is normal at 400 pg/mL. Problem List: 1. High-grade B cell lymphoma, double hit (Myc+ and BCL-2+ by FISH). 2. Hypothyroidism. 3. History of migraine headaches. 4. History of supraventricular tachycardia. 5. Anxiety/depression. Problems Addressed with this Encounter and Plan: Patient with high-grade B cell lymphoma, double hit (Myc+ and BCL-2+ by FISH). She had a 16 cm retroperitoneal mass at initial presentation in August 2020. She underwent treatment with 6 cycles of DA-EPOCH-R chemotherapy from 09/07/2020 through 12/26/2020. She had complete response by interim PET/CT. She is now being followed expectantly. She has been showing gradual recovery following the chemotherapy, though she still has somewhat limited activity tolerance. I recommended that she try walking shorter distances more frequently to see if she may tolerate that better. She complains that her port bothers her, and I will go ahead and arrange to have that removed locally. She is going to try increasing her dosage of bupropion for the depression and the cognitive dysfunction. She will be due for 6-month interval surveillance imaging in June, and I will get that scheduled. I will tentatively plan a follow-up visit in 3 months. Signed By: Shelton Morrow M.D. <<Signature on File>>
== END 2021-05-06 23:59 | disposition home or self-care (01) ==
LOC: ONCMED 06:20
PROVIDERS: PCP Family Medicine; Visit Provider Internal Medicine Medical Oncology
DX: Z08 Encounter for follow-up examination after completed treatment for malignant neoplasm (principal); Z85.72 Personal history of non-Hodgkin lymphomas; E03.9 Hypothyroidism, unspecified; F41.9 Anxiety disorder, unspecified; F32.9 Major depressive disorder, single episode, unspecified; Z86.69 Personal history of other diseases of the nervous system and sense organs; Z86.79 Personal history of other diseases of the circulatory system; Z79.899 Other long term (current) drug therapy; Z92.21 Personal history of antineoplastic chemotherapy
CPT/HCPCS: 36591; 80053; 82607; 83615; 84443; 85025; 99214

== ENCOUNTER → 2021-05-22 12:02 | Outpatient (BNVA) | payer MEDICARE, OTHER, SELFPAY | PROVIDERS: PCP Family Medicine; Referring Provider Internal Medicine Medical Oncology; Visit Provider Surgery | DX: Z20.822 Contact with and (suspected) exposure to COVID-19 (principal) | CPT/HCPCS: 87635 ==

== ENCOUNTER 2021-05-28 08:01 | Day surgery (SDC) | payer MEDICARE, OTHER, SELFPAY ==
[2021-05-24 14:10] VITALS: BMI 30.5
[2021-05-28 08:11] VITALS: BP 115/67; PULSE 72; RESP 18; TEMP 37; O2SAT 95
[2021-05-28] MEDS: sodium chloride 0.9% 1,000 ML 30 ML IV (08:23)
--- NOTE | 2021-05-28 08:47 | W.PM.OPSUD ---
Surgery/Procedure H&P Update DATE OF PROCEDURE: May 28, 2021 DATE H&P PERFORMED: 05/22/21 PREOP DIAGNOSIS: Port-A-Cath in place PRIMARY INDICATION FOR PROCEDURE: The same PLANNED PROCEDURE: Operation Date: 05/28/21 09:00 Proposed Procedures p Portacath [id number]/port a cath in place Z95.828(Not Applicable) - Waylon Wiley MD
--- NOTE | 2021-05-28 08:53 | ANES.PREANE2 ---
Pre-Anesthetic Assessment Height/Weight: Height 1.7 m Weight 88.451 kg Temp Pulse Resp BP Pulse Ox 98.6 F 72 18 115/67 95 05/28/21 08:11 05/28/21 08:11 05/28/21 08:11 05/28/21 08:11 05/28/21 08:11 Preop Diagnosis: Port-A-Cath in place Operation Date: 05/28/21 09:00 Proposed Procedures p Portacath [id number]/port a cath in place Z95.828(Not Applicable) - Waylon Wiley MD Was Beta Elda taken within 24 hours: N/A Was Clonidine taken within 24 hours: N/A Last intake: Intake Last Liquid Date 05/27/21 Last Liquid Time 23:00 Last Solid Date 05/27/21 Last Solid Time 17:30 Social No alcohol and No tobacco Exam alert, oriented x 3 and regular rate & rhythm LLL expiratory wheezes Airway Submandibular: within normal limits Cervical ROM: within normal limits Mallampati: Class II Dentition: full Comments: Comments: 13 crowns per patient Pulmonary None reported Hx of brief bleomycin exposure, did not tolerate so d/c in chemotherapy regimen CV/HEM Atrial Fibrillation (States had brief period afib that resolved at retirment) and Arrythmia (hx of SVT) METS > 4 None reported Hepatic None reported GI Gastroesophageal Reflux Disease Hx of lymphoma surrounding splenic tissue Metabolic Thyroid Disease Musc/skel Chronic muscle tightness 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 We discussed spectrum of MAC anesthesia including conversion to general as well as possibility of recall of intraoperative stimuli including discomfort/pain. Patient agrees to proceed with MAC. We discussed risk and benefits of general anesthesia including PONV, sore throat (sometimes severe), corneal abrasion, positioning and peripheral nerve injuries, life threatening allergic reaction, post operative ICU admission requiring prolonged intubation, stroke, heart attack, , and rare incidences of recall. Risk of > 500 ml blood loss (7ml/kg in children): No Medications/Allergies Home Medications Medication Instructions Recorded Confirmed Last Taken Type sumatriptan succinate 50 mg tablet 50 mg PO Q2H PRN #9 tab 03/20/20 05/28/21 05/27/21 Rx (Imitrex) bupropion HCl 150 mg tablet,12 hr 150 mg PO QAM 90 Days #90 tab 03/05/21 05/28/21 05/27/21 Rx sustained-release (Wellbutrin SR) cetirizine 10 mg capsule (Zyrtec) 10 mg PO DAILY PRN 03/05/21 05/28/21 05/27/21 History levothyroxine 50 mcg tablet 50 mcg PO DAILY 90 Days #90 tab 03/05/21 05/28/21 05/28/21 06:40 Rx sertraline 25 mg tablet (Zoloft) 25 mg PO DAILY 05/24/21 05/28/21 05/27/21 History Allergies Allergy/AdvReac Type Severity Reaction Status Date / Time influenza virus vacc Allergy Unknown Unknown Verified 05/28/21 08:09 trivalent, split [From Fluzone] Iodinated Contrast Media Allergy Unknown IVP Dye Verified 05/28/21 08:09 Current Medications Generic Name Dose Route Start Last Admin Trade Name Freq PRN Reason Stop Dose Admin Sodium Chloride 1,000 mls @ 30 mls/hr 05/28/21 07:45 05/28/21 08:23 Sodium Chloride 0.9% IV 05/29/21 07:44 30 mls/hr .Q24H TIM Administration PFSH Anesthesia Medical History Depression GERD (gastroesophageal reflux disease) History of lymphoma Migraines SVT (supraventricular tachycardia) Varicose veins of bilateral lower extremities with other complications Surgical History H/O oral surgery History of placement of ear tubes History of sinus surgery S/P hysterectomy S/P tonsillectomy Family History Other CHF (congestive heart failure) Dementia Depression Stroke Social History Smoking and tobacco status: former smoker Quit status (tobacco): has quit using tobacco Second hand smoke exposure: No Alcohol intake: never Lives independently: Yes Household members: family Housing: House service: No Current gender identity: Female Special brent needs: No Female Reproductive History Spontaneous abortions: No Data Anesthesia Cardiac Studies: No Data to Display
[2021-05-28] MEDS: lidocaine 2% INJ 20 mL INJECTION (09:19)
--- NOTE | 2021-05-28 09:35 | P.OP_ITS ---
Operative Report Date of procedure: May 28, 2021 Pre-op diagnosis: Preop Diagnosis Port-A-Cath in place Post-op diagnosis: Right upper chest Port-A-Cath in place Procedure done: Explantation of right upper chest Port-A-Cath Surgeon: Waylon Wiley MD Data Storage Specialist: Elen alatorre Circulating nurse Gladis Verduzco Anesthesia: MAC (Yady Krishnan) Estimated blood loss (mL): 5 Procedure: After identifying the patient in the holding area, informed consent per chart ,patient was then transferred to the operative suite, was placed in supine position, IV propofol was infused by the anesthesia provider and both arms were tucked, prep and drape of rightn upper chest region was done usual sterile technique. Time-out was done verifying the patient's name/date of /planned procedure and destination after the procedure, all were in agreement. I started by injection of lidocaine 2% at the site of the planned incision started by an transverse incision including the previous scar of the catheter placement located at the right upper chest, the port was dissected easily there were no sutures to remove. At this point the catheter was removed at the same time direct pressure was applied at the site of the right internal jugular vein stick to prevent bleeding. Thorough irrigation of the wound was done followed by hemostasis, pressure was sustained for at least 5 minutes to prevent bleeding from the stick site. Closure using 3/0 Vicryl as subdermal sutures was achieved , followed by loose closure using 4-0 Monocryl to approximate skin edges.Followed by Dermabond and dry dressing. Patient tolerated the procedure well, count of instruments, needles and sponges were completed at the end of the procedure.And then patient was transferred to the recovery area in stable condition. I Was present for the whole entire procedure
[2021-05-28 09:42] VITALS: BP 125/78; PULSE 70; RESP 20; TEMP 36.9; O2SAT 99
[2021-05-28 09:48] VITALS: BP 131/70; PULSE 68; RESP 18; O2SAT 98
[2021-05-28 09:52] VITALS: BP 131/88; PULSE 62; RESP 18; TEMP 36.7; O2SAT 98
[2021-05-28 09:56] VITALS: BP 144/83; PULSE 63; RESP 18; TEMP 36.6; O2SAT 98
[2021-05-28 10:14] VITALS: BP 138/89; PULSE 56; RESP 18; TEMP 36.6; O2SAT 95
--- NOTE | 2021-05-28 15:13 | ANE.PACU2 ---
Inpatient post-anesthesia follow up: Airway intact: Yes Vital signs: Temperature 97.8 F Pulse Rate 56 Respiratory Rate 18 Blood Pressure 138/89 Pulse Oximetry 95 Oxygen Delivery Me thod Room Air Oxygen Flow Rate Fraction of Inspir ed Oxygen Hydration adequate: Yes Nausea and vomiting: No Pain level: 1 Mental status: Baseline
== END 2021-05-28 10:34 | disposition home or self-care (01) ==
PROVIDERS: PCP Family Medicine; Visit Provider Surgery
PROC: (CPT 36589; principal; 2021-05-28 08:50)
DX: Z45.2 Encounter for adjustment and management of vascular access device (principal); I48.91 Unspecified atrial fibrillation; K21.9 Gastro-esophageal reflux disease without esophagitis; Z92.21 Personal history of antineoplastic chemotherapy; Z87.891 Personal history of nicotine dependence; Z82.49 Family history of ischemic heart disease and other diseases of the circulatory system; Z82.3 Family history of stroke
CPT/HCPCS: 36590; J0690; J7030

== ENCOUNTER 2021-07-30 08:07 | Outpatient (CLI) | payer MEDICARE, OTHER, SELFPAY ==
--- NOTE | 2021-07-30 08:17 | CT_ITS ---
WS: [id number] CT CHEST, ABDOMEN AND PELVIS WITH CONTRAST HISTORY: LYMPHOMA TECHNIQUE: Contiguous 5 mm axial imaging performed through the chest, abdomen and pelvis with IV cont rast, oral contrast has been provided. Coronal and sagittal reformats chest. Coronal and sagittal ref ormats through the abdomen and pelvis. All CT scans at [facility] use at least one of these d ose optimization techniques: automated exposure control; mA and/or kV adjustment per patient size (in cludes targeted exams where dose is matched to clinical indication); or iterative reconstruction. CONTRAST: Visipaque 320; 95 mL IV. DLP: 1700.00 mGy.cm COMPARISON: 08/29/[address]: Lungs are hyperexpanded. There are a few very small micronodules in the periphery of the nolvia ngs and mild septal thickening. No mass or concerning nodule. No pleural effusion. Very mild enlargem ent of the RIGHT heart chambers. No mediastinal or hilar adenopathy. Subcentimeter nodule in the ante rior LEFT thyroid lobe. Small hiatal hernia. Increase in thoracic kyphosis. Abdomen CT: Mild thickening of the stomach wall up to 2.4 cm May be due to underdistention or residua l tumor. Residual soft tissue mass in the LEFT upper quadrant abuts the posterior surface of the stom ach. Residual mass measures 2.8 x 2.9 cm. This residual mass extends to involve the distal pancreatic tail. There is mild residual soft tissue tumor surrounding the superior aorta at the level of the ce liac axis. Overall significant decrease in the amount of tumor extension as compared to the prior angela dy. There is mild soft tissue thickening of the LEFT adrenal gland. The extent of invasion or involve ment of the colon has markedly improved. Visualized liver and gallbladder are negative. RIGHT adrenal gland is normal. Pancreatic head is nega tive. Normal opacification of the kidneys. Negative aorta. No ascites. There is a 7 mm lymph node LEFT retroperitoneum just below the level of the renal vein. T here are a few additional very small retroperitoneal lymph nodes overall these lymph nodes have decre ased in size as compared to 08/29/2020. Diffuse fecal retention and constipation. No obstructive pattern. Pelvic CT: No free fluid in the pelvis. Lobulated soft tissue with no intraluminal filling in the RIG HT lower quadrant seen best on the axial imaging on image 62 of series 7. This area does not fill wit h oral contrast but may be a cluster of small bowel loops in the pelvis. This is in the same location as the appendix but the appendix is not as well visualized today. I cannot completely exclude a clus ter of lymph nodes. Increased in the lumbar lordosis. Degenerative disc disease at L5-S1. CT/CT chest abd pel w con* IMPRESSION: 1. Significant improvement in the large soft tissue mass in the LEFT upper melisa drant invading the adjacent structures as described on 08/29/2020. There is resi dual mass in the LEFT upper quadrant now measures 2.8 x 2.9 cm. There is contin ued mild abutment against the posterior stomach, pancreatic tail, colon and aor ta. 2. Continued mild thickening but improved LEFT adrenal gland. 3. Decrease in size and number of the previously described small retroperitone al lymph nodes. 4. Minimal lobulated soft tissue in the RIGHT pelvis. Does not fill with oral contrast. This may be a cluster adherent small bowel loops or beginning early l ymph nodes. Recommend follow-up CT in 3 months to evaluate for any interval pamela nge. 5. No lesions within the lungs and no chest adenopathy.
[2021-07-30] MEDS: iohexol 300 mg/mL 50 mL Btl PO (08:50)
[2021-07-30 11:07] LABS: Blood Urea Nitrogen 14 mg/dL (8-23)
[2021-07-30] MEDS: iodixanol 320 mg/mL 100mL Btl IV (11:08)
[2021-07-30 12:24] LABS: Basophils % 0.1 %; Hematocrit 39.7 % (37.0-47.0); Hemoglobin 12.9 g/dL (11.5-15.3); Lymphocytes # 0.3 10^3/uL (0.8-4.8); Lymphocytes % 3.5 %; Mean Corpuscular HGB Conc 32.5 g/dL (30.0-36.0); Mean Corpuscular Hemoglobin 30.9 pg (28.0-34.0); Mean Corpuscular Volume 95.2 fl (81-99); Mean Platelet Volume 9.7 fL (7.4-10.4); Monocytes % 0.5 %; Neutrophils # 7.93 10^3/uL (1.8-7.7); Neutrophils % 95.7 %; Nucleated Red Blood Cells % 0 %; Platelet Count 253 10^3/cmm (130-400); Red Blood Count 4.17 10^6/uL (4.1-5.3); Red Cell Distribution Width 13.7 % (12.1-15.1); White Blood Count 8.3 10^3/uL (4.0-10.0)
[2021-07-30 13:04] LABS: Alanine Aminotransferase 14 U/L (0-33); Albumin Level 3.9 g/dL (3.5-5.2); Alkaline Phosphatase 159 IU/L (35-105); Aspartate Amino Transferase 21 U/L (0-32); Blood Urea Nitrogen 14 mg/dL (8-23); Calcium 8.9 mg/dL (8.5-10.5); Carbon Dioxide 23 mmol/L (22-29); Chloride 101 mmol/L (98-107); Globulin 2.9 g/dL (1.3-4.6); Glucose 195 mg/dL (65-115); Osmolality Calculated 288 mOsm/kg (285-295); Sodium 136 mmol/L (136-145); Total Bilirubin 0.4 mg/dL (0.15-1.2); Total Protein 6.8 g/dL (6.6-8.7)
[2021-07-30 13:23] LABS: Lactate Dehydrogenase 218 U/L (135-214)
== END 2021-07-30 08:08 | disposition home or self-care (01) ==
LOC: RAD 08:10 → ONCMED 11:27
PROVIDERS: PCP Family Medicine; Visit Provider Internal Medicine Medical Oncology
DX: C83.33 Diffuse large B-cell lymphoma, intra-abdominal lymph nodes (principal)
CPT/HCPCS: 36415; 71260; 74177; 80053; 82565; 83615; 84520; 85025

== ENCOUNTER 2021-08-01 14:56 | Outpatient (CLI) | payer MEDICARE, OTHER, SELFPAY ==
--- NOTE | 2021-08-02 10:12 | ONC FU_ITS ---
Kadi George Progress Note Patient: Radha Barajas Unit #: [id number]: [id number] Dicatated By: Kadi George N.P.Date of Visit:Aug 01, 2021 Onc MED Follow-up/Prog Note Chief Complaint: Lymphoma. 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 On 08/25/2020 she had presented to the emergency room with pain in the upper abdomen/lower rib cage. Her CT abdomen/pelvis showed a large bulky mass in the left upper retroperitoneum centered in the expected location of the left adrenal gland. It measured 13.0 x 10.0 x 7.5 cm. There was additional adenopathy noted in the retroperitoneum and mesentery. The initial plan was to evaluate further as an outpatient. However, she returned to the emergency room 4 days later with worsening symptoms, and at that point arrangements were made for transfer to [facility] for admission. Her staging PET/CT showed large markedly hypermetabolic mass extending from the retrocrural fat to left upper retroperitoneum with involvement of the colonic wall at the splenic flexure. The mass measured 10.7 x 15.9 cm with maximum SUV 54. She began on steroid therapy with prednisone 100 mg daily and on 09/04/[address] directed biopsy of the mass. Pathology was consistent with high-grade lymphoma with flow cytometry positive for CD10, CD20, CD19, CD45, CD38, and lambda light chain and with FISH positive for the Myc and the BCL-2 rearrangements. It was negative for the BCL6 rearrangement. She underwent treatment through [facility] with 6 cycles of DA-EPOCH-R chemotherapy from 09/07/2020 through 12/26/2020. She was confirmed to have complete remission by interim PET/CT. She is now being followed on expectant management. Her other medical illnesses have included hypothyroidism, migraine headaches, and depression. She also has a history of supraventricular tachycardia. Prior surgeries were limited to hysterectomy/unilateral oophorectomy and tonsillectomy. She has a history of smoking up to a pack of cigarettes daily for almost 40 years, though off and on. She quit smoking in 2004. Patient presents today for follow-up and to discuss CT results. She states she has been feeling great. No fatigue or pain. Her appetite has been good. No fever, chills, night sweats. No sinus drainage or sore throat. No shortness of breath, cough, chest pain. No nausea or vomiting. No diarrhea or constipation. She does have an occasional twinge in the left upper quadrant but usually only last for few seconds and then it goes away. She denies any urinary symptoms. No joint or bone pain. No headaches or dizziness. Review Of Symptoms: see above. Past Medical History: Depression Hypothyroidism Migraine headaches Supraventricular tachycardia Past Surgical History: Hysterectomy with unilateral oophorectomy Tonsillectomy Covid vaccine #2 moderna in 2020 Covid vaccine #1 moderna in 2020 Allergies: influenza vaccines and Iodinated Contrast Media. Medications: buPROPion HCl ER (SR) 150 mg (of 150 mg) Tablet SR 24 HR Oral daily Cetirizine HCl (10 mg) Tablet Oral daily Levothyroxine Sodium (50 mcg) Tablet Oral daily Sertraline HCl (25 mg) Tablet Oral daily SUMAtriptan Succinate Tablet Oral PRN Family History: Ms. Barajas's mother is : congestive heart failure. Ms. Barajas's father is : Dementia, and lung cancer, and testicular cancer. Father had Alzheimer's dementia and asbestos-related lung disease. He with aspiration pneumonia at age 87. Mother with congestive heart failure at age 89. She has 4 brothers, all living. The eldest has valvular rheumatic heart disease. The youngest has coronary artery disease. A paternal aunt had colon cancer. Social History: Ms. Barajas is . Ms. Barajas no longer smokes but had smoked 0.5 packs/day. She drinks occasionally. 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 She has a history of smoking off and on, up to a pack of cigarettes daily, beginning at age 21. She quit smoking in 2004. She has just very occasional alcohol use. Physical Examination: Performed on Aug 01, 2021 15:08: Height - 66 in, Weight - 209.4 lbs (HIGH), BSA - 2.04 sq.m, BMI - 33.80 (HIGH), Temperature - 97.2 F (LOW), Pulse - 74 /min, Respiration - 18 /min, BP - 120/74 mm(hg), O2 Sat - 98 %, Pain - 0, and Fatigue - 0. Performance Status: 0 - Fully active, able to carry on all predisease activities without restrictions. (ECOG) Constitutional Alert, cooperative, oriented. Mood and affect appropriate. Appears close to chronological age. Well nourished. Well developed. Head Normocephalic; no scars. Eyes Conjunctivae and sclerae are clear and without icterus. Pupils are reactive and equal. Respiratory Lungs are clear to auscultation without rhonchi or wheezing. Cardiovascular Regular rate and rhythm of heart without murmurs, gallops or rubs. Abdomen Non-tender, non-distended, no masses, ascites or hepatosplenomegaly. Good bowel sounds. No guarding or rebound tenderness. Musculoskeletal No tenderness or swelling, normal range of motion without obvious weakness. Psychiatric Alert and oriented times three. Coherent speech. Verbalizes understanding of our discussions today. Laboratory: Test performed on Jul 30, 2021 12:05 LDH (Total) 218 U/L Sodium 136 mmol/L Potassium 4.0 mmol/L Chloride 101 mmol/L CO2 23 mmol/L Anion Gap 16.0 BUN 14 mg/dL Creatinine 0.8 mg/dL Glucose 195 mg/dL Osmolality - Calculated 288 mOsm/kg Calcium 8.9 mg/dL Protein, Total 6.8 g/dL Albumin 3.9 g/dL Globulin 2.9 g/dL Bilirubin, Total 0.4 mg/dL ALT (SGPT) 14 U/L AST (SGOT) 21 U/L Alkaline Phosphatase 159 IU/L WBC 8.3 10 3/uL RBC 4.17 10 6/uL HGB 12.9 g/dL HCT 39.7 % MCV 95.2 fl MCH 30.9 pg MCHC 32.5 g/dL RDW 13.7 % Platelet Count 253 10 3/cmm MPV 9.7 fL Neutrophils 7.93 10 3/uL Lymphocytes 0.3 10 3/uL Monocytes 0.0 10 3/uL Eosinophils 0.0 10 3/uL Basophils 0.0 10 3/uL Neutrophil % 95.7 % Lymphocyte % 3.5 % Monocyte % 0.5 % Eosinophil % 0.0 % Basophils % 0.1 % NRBC % 0 % Test performed on Jul 30, 2021 08:54 eGFR 77.0 mL/min Test performed on May 01, 2021 14:25 TSH 1.51 uIU/mL Vitamin B12 400 pg/mL Test performed on Feb 26, 2021 14:45 Anti-D Negative Blood Type AN Antibody Screen (Gel) NEGATIVE Impression: 1. High-grade B cell lymphoma, double hit (Myc+ and BCL-2+ by FISH). 2. Hypothyroidism. 3. History of migraine headaches. 4. History of supraventricular tachycardia. 5. Anxiety/depression. Plan: Patient with high-grade B cell lymphoma, double hit (Myc+ and BCL-2+ by FISH). She had a 16 cm retroperitoneal mass at initial presentation in August 2020. She underwent treatment with 6 cycles of DA-EPOCH-R chemotherapy from 09/07/2020 through 12/26/2020. She had complete response by interim PET/CT. She has been followed expectantly. She recently had a surveillance CT scan of the chest abdomen and pelvis on 07/30/2021. It was compared to the CT scan performed on 08/29/2020. The impression indicated: 1. Significant improvement in the large soft tissue mass in the left upper quadrant invading the adjacent structures as described on 08/29/2020. There is residual mass in the left upper quadrant now measures 2.8 x 2.9 cm. There is continued mild abutment against the posterior stomach, pancreatic tail, colon and aorta. 2. Continued mild thickening but improved left adrenal gland 3. Decrease in size and number of the previously described small retroperitoneal lymph nodes. 4. Minimal lobulated soft tissue in the right pelvis. Does not fill with oral contrast. This may be a cluster adherent small bowel loops or beginning early lymph nodes. Recommend follow-up CT in 3 months to evaluate for any interval change. 5. No lesions within the lungs and no chest adenopathy. Patient states that she had a PET/CT performed in December 2020 at [place] which was negative of any residual. We will attempt to get that report for comparison. In the meantime we will order a PET/CT to further evaluate. Patient will return to the clinic in 1 month. Signed By: Kadi George N.P. <<Signature on File>>
== END 2021-08-01 14:57 | disposition home or self-care (01) ==
LOC: ONCMED 14:57
PROVIDERS: PCP Family Medicine; Visit Provider Nurse Practitioner Family
DX: Z08 Encounter for follow-up examination after completed treatment for malignant neoplasm (principal); Z85.72 Personal history of non-Hodgkin lymphomas; E03.9 Hypothyroidism, unspecified; F41.9 Anxiety disorder, unspecified; F32.A Depression, unspecified; Z79.899 Other long term (current) drug therapy; Z92.21 Personal history of antineoplastic chemotherapy; Z92.3 Personal history of irradiation
CPT/HCPCS: G0463

== ENCOUNTER 2021-09-23 11:28 | Oncology outpatient (recurring) (ONCR) | payer MEDICARE, OTHER, SELFPAY ==
[2021-09-23 11:58] LABS: Basophils % 0.7 %; Eosinophils # 0.1 10^3/uL (0.0-0.8); Eosinophils % 2.7 %; Hematocrit 40.3 % (37.0-47.0); Hemoglobin 13.7 g/dL (11.5-15.3); Lymphocytes # 0.7 10^3/uL (0.8-4.8); Lymphocytes % 16.5 %; Mean Corpuscular Volume 91.2 fl (81-99); Mean Platelet Volume 9.7 fL (7.4-10.4); Monocytes # 0.5 10^3/uL (0.2-0.9); Monocytes % 11.4 %; Neutrophils # 2.75 10^3/uL (1.8-7.7); Nucleated Red Blood Cells % 0 %; Platelet Count 250 10^3/cmm (130-400); Red Blood Count 4.42 10^6/uL (4.1-5.3); Red Cell Distribution Width 13.2 % (12.1-15.1); White Blood Count 4.1 10^3/uL (4.0-10.0)
[2021-09-23 12:06] LABS: Alanine Aminotransferase 13 U/L (0-33); Alkaline Phosphatase 135 IU/L (35-105); Anion Gap 12.3 (5-19); Aspartate Amino Transferase 18 U/L (0-32); Blood Urea Nitrogen 16 mg/dL (8-23); Calcium 9.1 mg/dL (8.5-10.5); Carbon Dioxide 26 mmol/L (22-29); Chloride 106 mmol/L (98-107); Globulin 2.6 g/dL (1.3-4.6); Glucose 76 mg/dL (65-115); Lactate Dehydrogenase 226 U/L (135-214); Osmolality Calculated 290 mOsm/kg (285-295); Potassium 4.3 mmol/L (3.5-5.1); Sodium 140 mmol/L (136-145); Total Bilirubin 0.5 mg/dL (0.15-1.2); Total Protein 6.6 g/dL (6.6-8.7)
== END 2021-10-03 23:59 | disposition home or self-care (01) ==
PROVIDERS: PCP Family Medicine; Visit Provider Nurse Practitioner Family
DX: Z85.72 Personal history of non-Hodgkin lymphomas (principal)
CPT/HCPCS: 80053; 83615; 85025; 99214

== ENCOUNTER → 2021-11-09 11:12 | Outpatient (BNVA) | payer MEDICARE, OTHER, SELFPAY | PROVIDERS: PCP Family Medicine; Visit Provider Family Medicine | DX: Z20.822 Contact with and (suspected) exposure to COVID-19 (principal) | CPT/HCPCS: 87426 ==

== ENCOUNTER 2021-12-25 11:13 | Oncology outpatient (recurring) (ONCR) | payer MEDICARE, OTHER, SELFPAY ==
[2021-12-25 12:16] LABS: Basophils % 0.9 %; Eosinophils # 0.2 10^3/uL (0.0-0.8); Eosinophils % 4.2 %; Hematocrit 42.2 % (37.0-47.0); Hemoglobin 13.8 g/dL (11.5-15.3); Lymphocytes # 0.7 10^3/uL (0.8-4.8); Lymphocytes % 17.3 %; Mean Corpuscular HGB Conc 32.7 g/dL (30.0-36.0); Mean Corpuscular Hemoglobin 31.7 pg (28.0-34.0); Mean Corpuscular Volume 96.8 fl (81-99); Mean Platelet Volume 9.5 fL (7.4-10.4); Monocytes # 0.5 10^3/uL (0.2-0.9); Monocytes % 10.5 %; Neutrophils # 2.86 10^3/uL (1.8-7.7); Neutrophils % 66.9 %; Nucleated Red Blood Cells % 0 %; Platelet Count 257 10^3/cmm (130-400); Red Blood Count 4.36 10^6/uL (4.1-5.3); Red Cell Distribution Width 12.9 % (12.1-15.1); White Blood Count 4.3 10^3/uL (4.0-10.0)
[2021-12-25 12:35] LABS: Alanine Aminotransferase 14 U/L (0-33); Albumin Level 3.9 g/dL (3.5-5.2); Alkaline Phosphatase 141 U/L (35-105); Anion Gap 13.4 (5-19); Aspartate Amino Transferase 18 U/L (0-32); Blood Urea Nitrogen 15 mg/dL (8-23); Calcium 9.5 mg/dL (8.5-10.5); Carbon Dioxide 27 mmol/L (22-29); Chloride 107 mmol/L (98-107); Globulin 2.7 g/dL (1.3-4.6); Glucose 68 mg/dL (65-115); Lactate Dehydrogenase 187 U/L (135-214); Osmolality Calculated 295 mOsm/kg (285-295); Potassium 4.4 mmol/L (3.5-5.1); Sodium 143 mmol/L (136-145); Total Bilirubin 0.4 mg/dL (0.15-1.2); Total Protein 6.6 g/dL (6.6-8.7)
== END 2022-01-03 23:59 | disposition home or self-care (01) ==
PROVIDERS: Internal Medicine Medical Oncology; PCP Family Medicine; Visit Provider Nurse Practitioner Family
DX: Z08 Encounter for follow-up examination after completed treatment for malignant neoplasm (principal); Z85.72 Personal history of non-Hodgkin lymphomas; Z92.21 Personal history of antineoplastic chemotherapy; Z87.891 Personal history of nicotine dependence
CPT/HCPCS: 80053; 83615; 85025; 99213

== ENCOUNTER 2022-01-10 09:13 | Outpatient (CLI) | payer MEDICARE, OTHER, SELFPAY ==
[2022-01-10] MEDS: iohexol 350 mg/mL 100 mL Btl IV (09:40)
[2022-01-10] MEDS: iohexol 350 mg/mL 100 mL Btl PO (09:40)
--- NOTE | 2022-01-10 11:00 | CT_ITS ---
WS: [id number] CT CHEST, ABDOMEN AND PELVIS WITH CONTRAST HISTORY: Lymphoma surveillance. TECHNIQUE: Contiguous 5 mm axial imaging performed through the chest, abdomen and pelvis with IV cont rast, oral contrast has been provided. Coronal and sagittal reformats chest. Coronal and sagittal ref ormats through the abdomen and pelvis. All CT scans at [facility] use at least one of these d ose optimization techniques: automated exposure control; mA and/or kV adjustment per patient size (in cludes targeted exams where dose is matched to clinical indication); or iterative reconstruction. CONTRAST: Omnipaque 350; 95 mL IV. DLP: 1695.79 mGy.cm COMPARISON: 07/30/2021 and 08/29/[address]: Lungs are mildly hyperinflated. There are no new or enlarging pulmonary nodules. Very minim al interstitial thickening in the periphery is chronic. No hilar or mediastinal lymph nodes. Heart is normal size. No pericardial or pleural effusion. There is a very small hiatal hernia. Normal aorta. Normal size pulmonary artery. Subcentimeter LEFT thyroid nodule. Abdomen CT: Normal size liver. Low-attenuation 5 mm nodule just anterior to the gallbladder. Spleen i s normal size. Gallbladder is present. Pancreas is negative. RIGHT adrenal gland is negative. There i s mild persistent thickening of the LEFT adrenal gland measuring 3.2 x 1.7 cm but no progression. The re is very mild soft tissue thickening involving the posterior stomach which could be due to underdis tention. The increased soft tissue in the LEFT upper abdomen is in part related to a redundant tail o f the pancreas. The large soft tissue mass described on 08/29/2020 has essentially resolved. Normal si ze aorta. No renal obstruction. No mesenteric or retroperitoneal lymph nodes. Previously described ve ry small retroperitoneal lymph nodes have resolved. Extensive fecal retention throughout the colon. Normal appendix. No RIGHT lower quadrant mass as ques tioned on the prior study. Pelvic CT: No free fluid or adenopathy in the pelvis. Prior hysterectomy. Visualized urinary bladder is normal. Mild increase in the lumbar lordosis. No osteoblastic or osteolytic bone disease. CT/CT chest abd pel w con* IMPRESSION: 1. No pulmonary nodules, pneumonia or lymphadenopathy within the chest. 2. Minimal persistent soft tissue thickening involving the LEFT adrenal gland. The remaining soft tissue lymphomatous mass in the LEFT upper abdomen and the retroperitoneal lymph nodes has essentially resolved. No additional disease. 3. Diffuse marked constipation. 4. Lobulated soft tissue mass in the RIGHT pelvis noted on the prior CT fills with oral contrast. There is no lymphoma or small bowel mass in the RIGHT lower quadrant.
== END 2022-01-10 09:14 | disposition home or self-care (01) ==
LOC: RAD 09:14
PROVIDERS: PCP Family Medicine; Visit Provider Internal Medicine Medical Oncology
DX: C85.13 Unspecified B-cell lymphoma, intra-abdominal lymph nodes (principal); K59.00 Constipation, unspecified
CPT/HCPCS: 71260; 74177

== ENCOUNTER → 2022-04-01 09:39 | Outpatient (BNVA) | payer MEDICARE, OTHER, SELFPAY | PROVIDERS: PCP Family Medicine; Visit Provider Family Medicine | DX: E03.9 Hypothyroidism, unspecified (principal); Z13.220 Encounter for screening for lipoid disorders; Z13.6 Encounter for screening for cardiovascular disorders; C85.13 Unspecified B-cell lymphoma, intra-abdominal lymph nodes; Z13.1 Encounter for screening for diabetes mellitus; J44.9 Chronic obstructive pulmonary disease, unspecified | CPT/HCPCS: 80053; 80061; 84443; 85025 ==

== ENCOUNTER 2022-06-26 12:07 | Oncology outpatient (recurring) (ONCR) | payer MEDICARE, OTHER, SELFPAY ==
[2022-06-26 12:35] LABS: Basophils # 0.1 10^3/uL (0.0-0.1); Basophils % 0.9 %; Eosinophils # 0.1 10^3/uL (0.0-0.8); Eosinophils % 2.1 %; Hematocrit 38.9 % (37.0-47.0); Hemoglobin 12.8 g/dL (11.5-15.3); Lymphocytes # 0.9 10^3/uL (0.8-4.8); Mean Corpuscular HGB Conc 32.9 g/dL (30.0-36.0); Mean Corpuscular Hemoglobin 31.4 pg (28.0-34.0); Mean Corpuscular Volume 95.6 fl (81-99); Mean Platelet Volume 9.4 fL (7.4-10.4); Monocytes # 0.4 10^3/uL (0.2-0.9); Neutrophils # 3.84 10^3/uL (1.8-7.7); Neutrophils % 71.8 %; Nucleated Red Blood Cells % 0 %; Platelet Count 235 10^3/cmm (130-400); Red Blood Count 4.07 10^6/uL (4.1-5.3); White Blood Count 5.4 10^3/uL (4.0-10.0)
[2022-06-26 12:50] LABS: Alanine Aminotransferase 14 U/L (0-33); Albumin Level 3.6 g/dL (3.5-5.2); Alkaline Phosphatase 102 U/L (35-105); Aspartate Amino Transferase 16 U/L (0-32); Blood Urea Nitrogen 17 mg/dL (8-23); Calcium 8.8 mg/dL (8.5-10.5); Carbon Dioxide 27 mmol/L (22-29); Chloride 105 mmol/L (98-107); Globulin 2.4 g/dL (1.3-4.6); Glucose 77 mg/dL (65-115); Lactate Dehydrogenase 217 U/L (135-214); Osmolality Calculated 288 mOsm/kg (285-295); Sodium 139 mmol/L (136-145); Total Bilirubin 0.4 mg/dL (0.15-1.2)
== END 2022-07-04 23:59 | disposition home or self-care (01) ==
LOC: ONCMED 12:08
PROVIDERS: PCP Family Medicine; Visit Provider Internal Medicine Medical Oncology
DX: C85.13 Unspecified B-cell lymphoma, intra-abdominal lymph nodes
CPT/HCPCS: 36415; 80053; 83615; 85025

== ENCOUNTER → 2022-07-16 14:21 | Outpatient (BNVA) | payer MEDICARE, OTHER, SELFPAY | PROVIDERS: PCP Family Medicine; Visit Provider Emergency Medicine | DX: R05.9 Cough, unspecified (principal) | CPT/HCPCS: 87400 ==

== ENCOUNTER 2022-07-29 11:16 | Oncology outpatient (recurring) (ONCR) | payer MEDICARE, OTHER, SELFPAY ==
[2022-07-29 12:17] LABS: Basophils % 0.8 %; Eosinophils # 0.2 10^3/uL (0.0-0.8); Eosinophils % 3.3 %; Hematocrit 44.3 % (37.0-47.0); Hemoglobin 13.9 g/dL (11.5-15.3); Lymphocytes # 0.9 10^3/uL (0.8-4.8); Lymphocytes % 19.1 %; Mean Corpuscular HGB Conc 31.4 g/dL (30.0-36.0); Mean Corpuscular Hemoglobin 32.1 pg (28.0-34.0); Mean Corpuscular Volume 102.3 fl (81-99); Mean Platelet Volume 9.3 fL (7.4-10.4); Monocytes # 0.4 10^3/uL (0.2-0.9); Monocytes % 8.8 %; Neutrophils # 3.29 10^3/uL (1.8-7.7); Neutrophils % 67.8 %; Nucleated Red Blood Cells % 0 %; Platelet Count 261 10^3/cmm (130-400); Red Blood Count 4.33 10^6/uL (4.1-5.3); Red Cell Distribution Width 13.2 % (12.1-15.1); White Blood Count 4.9 10^3/uL (4.0-10.0)
[2022-07-29 12:33] LABS: Alanine Aminotransferase 16 U/L (0-33); Albumin Level 3.7 g/dL (3.5-5.2); Alkaline Phosphatase 107 U/L (35-105); Anion Gap 14.4 (5-19); Aspartate Amino Transferase 21 U/L (0-32); Blood Urea Nitrogen 18 mg/dL (8-23); Calcium 9.1 mg/dL (8.5-10.5); Carbon Dioxide 23 mmol/L (22-29); Chloride 102 mmol/L (98-107); Globulin 2.7 g/dL (1.3-4.6); Glucose 72 mg/dL (65-115); Osmolality Calculated 280 mOsm/kg (285-295); Potassium 4.4 mmol/L (3.5-5.1); Sodium 135 mmol/L (136-145); Total Bilirubin 0.5 mg/dL (0.15-1.2); Total Protein 6.4 g/dL (6.6-8.7)
[2022-07-29 13:26] LABS: Lactate Dehydrogenase 195 U/L (135-214)
== END 2022-08-03 23:59 | disposition home or self-care (01) ==
PROVIDERS: Nurse Practitioner Family; PCP Family Medicine; Visit Provider Internal Medicine Medical Oncology
DX: Z08 Encounter for follow-up examination after completed treatment for malignant neoplasm (principal); Z85.72 Personal history of non-Hodgkin lymphomas; Z92.21 Personal history of antineoplastic chemotherapy; Z87.891 Personal history of nicotine dependence; Z79.52 Long term (current) use of systemic steroids
CPT/HCPCS: 36415; 80053; 83615; 85025; 99213

== ENCOUNTER 2022-08-13 14:41 | Outpatient (CLI) | payer MEDICARE, OTHER, SELFPAY ==
--- NOTE | 2022-08-13 16:00 | CT_ITS ---
WS: [id number] CT CHEST, ABDOMEN AND PELVIS WITH CONTRAST HISTORY: Lymphoma history. TECHNIQUE: Contiguous 5 mm axial imaging performed through the chest, abdomen and pelvis with IV cont rast, oral contrast has been provided. Coronal and sagittal reformats chest. Coronal and sagittal ref ormats through the abdomen and pelvis. All CT scans at [facility] use at least one of these d ose optimization techniques: automated exposure control; mA and/or kV adjustment per patient size (in cludes targeted exams where dose is matched to clinical indication); or iterative reconstruction. CONTRAST: Omnipaque 350; 100 mL IV. DLP: 1086.58 mGy.cm COMPARISON: 01/10/2022, 07/30/2021, 08/29/[address]: Mild pulmonary hyperexpansion from emphysema. Mild peripheral interstitial thickening is ch ronic. No pulmonary mass, nodule or pneumonia. No pericardial or pleural effusions. No axillary, carmen r or mediastinal adenopathy. Mild cardiac enlargement. Normal size aorta and pulmonary artery. Small hiatal hernia. No destructive bone lesions. Abdomen CT: Normal liver and gallbladder. Normal portal vein. Normal size spleen. Normal pancreas. Pr eviously described mesenteric mass in the LEFT upper quadrant about the distal pancreas in the case management coordinator ior stomach. This mass measures 4.0 x 2.6 cm and is very similar in appearance to the prior study. Mi ld persistent thickening of the LEFT adrenal gland but slightly improved since 07/30/2021. Stable sinc e 01/10/2022. No renal mass or obstruction. Normal aorta. Stomach is well distended. Very mild persistent thickening of the stomach fundus is unchanged since 1 and improved since 07/30/2021. Overlapping loops of colon with constipation. Normal appendix. No edema additional masses or mesenteric deposits identified. No ascites. Pelvic CT: Prior hysterectomy. No free fluid in the bladder. No pelvic lymph nodes. CT/CT chest abdpel w/*[id number] IMPRESSION: 1. Previously described lymphomatous soft tissue mass in the LEFT upper abdome n is reidentified and stable measuring 4.0 x 2.6 cm. Not changed since 2. 2. Persistent but mild and unchanged posterior stomach wall thickening. 3. No new or enlarging mesenteric deposits or adenopathy identified. 4. Lungs are clear. Mild emphysema. 5. Prior hysterectomy.
[2022-08-13] MEDS: iohexol 350 mg/mL 500 mL Btl (per mL) IV (16:14)
[2022-08-13] MEDS: iohexol 350 mg/mL 500 mL Btl (per mL) PO (16:15)
== END 2022-08-13 14:42 | disposition home or self-care (01) ==
PROVIDERS: PCP Family Medicine; Visit Provider Nurse Practitioner Family
DX: C85.13 Unspecified B-cell lymphoma, intra-abdominal lymph nodes (principal)
CPT/HCPCS: 71260; 74177; Q9967

== ENCOUNTER 2022-09-13 21:16 | Emergency (ER) | payer MEDICARE, OTHER, SELFPAY ==
[2022-09-13 21:21] VITALS: BP 127/82; PULSE 69; RESP 16; TEMP 36.6; O2SAT 96
--- NOTE | 2022-09-13 21:35 | XRR_ITS ---
PROCEDURE INFORMATION: Exam: XR Left Hand Exam date and time: 09/13/2022 9:54 PM Age: 77 years old Clinical indication: Injury or trauma; Other: Wound; Puncture; Left; Index finger; Additional info: Sewing needle injury to 2nd digit, concern for foreign body TECHNIQUE: Imaging protocol: Radiologic exam of the left hand. Views: 3 or more views. COMPARISON: No relevant prior studies available. FINDINGS: Bones/joints: Normal. Soft tissues: 7 mm metallic needle projects within the plantar soft tissues at the level of the distal 2nd phalanx. XR/XR hand LT min 3V* [id number] IMPRESSION: 7 mm metallic needle noted within the plantar soft tissues of the distal 2nd digit.
--- NOTE | 2022-09-13 21:37 | ED_ITS ---
HPI - Extremity Problem General: Chief complaint: Extremity Injury, Upper Stated complaint: Left Finger Injury Time Seen by Provider: 09/13/22 21:27 History of Present Illness: Patient is a 77-year-old female comes to the ED with left index finger injury. Patient says she excellently stuck a sewing needle in her index finger of the left hand. She went to pull out the sewing needle and says it broke and she is concerned that a piece of the needle is still in her finger. She states her pain is mild. She does not have an updated tetanus. Associated symptoms: Deny chest pain, fever(s) or rash Review of Systems Const: Denies: fever(s), chills or fatigue Eyes: Denies: change in vision or eye discomfort ENMT: Denies: throat pain, odynophagia, nasal discharge or nasal congestion Card: Denies: chest pain, palpitations, edema, swelling of feet/ankles, dyspnea on exertion or orthopnea Resp: Denies: dyspnea, productive cough or non-productive cough GI: Denies: abdominal pain, nausea, vomiting, diarrhea, constipation or hematochezia : Denies: flank pain, dysuria or hematuria Musc: Denies: neck pain, back pain or extremity swelling Skin/Breast: Reports: new lesions (Puncture wound to left index finger); Denies: rash Neuro: Denies: headache(s), numbness in extremities or weakness in extremities PFSH ED PFSH: Medical History Chronic migraine Depression GERD (gastroesophageal reflux disease) High grade B-cell lymphoma Hypothyroidism SVT (supraventricular tachycardia) Varicose veins of bilateral lower extremities with other complications Surgical History H/O hysterectomy with unilateral oophorectomy H/O oral surgery History of placement of ear tubes History of removal of Port-a-Cath 07/2021 History of sinus surgery S/P tonsillectomy Family History Other CHF (congestive heart failure) Dementia Depression Stroke Social History Smoking and tobacco status: former smoker Quit status (tobacco): has quit using tobacco Second hand smoke exposure: No Alcohol intake: current Alcohol intake frequency: holidays/special occasions only Substance/Drug Use: never Lives independently: Yes Household members: family Housing: House service: No Current gender identity: Female Special brent needs: No Female Reproductive History: Spontaneous abortions: No Physical Exam Const: COMMON NORMALS: patient oriented x3 and alert HENMT: COMMON NORMALS: normocephalic HEAD & SCALP: normocephalic MOUTH: Normal oral and palatal mucosa present THROAT: posterior oropharynx normal and uvula midline Neck/C-Spine: COMMON NORMALS: supple GENERAL: Yes normal visual inspection Resp: COMMON NORMALS: normal respiratory effort, No retractions, No use of accessory muscles and clear to auscultation bilaterally AUSCULTATION: clear to auscultation bilaterally Cardio: COMMON NORMALS: regular rate, regular rhythm, S1 normal heart sound present, S2 normal heart sound present, No gallops present (Cardio), No clicks present (Cardio), No murmurs present (Cardio) and Peripheral pulses 2+ throughout RATE: regular rate RHYTHM: regular rhythm HEART SOUNDS: S1 normal heart sound present and S2 normal heart sound present PERIPHERAL PULSES: Peripheral pulses 2+ throughout GI: COMMON NORMALS: Normal to inspection, nondistended, normoactive bowel sounds present, Soft to palpation, non-tender and no masses PALPATION: Yes Soft to palpation : COMMON NORMALS: Yes no CVA tenderness BLADDER/KIDNEY EXAM: Yes no CVA tenderness Back/Pelvis: COMMON NORMALS: no CVA tenderness Extremity: COMMON NORMALS: normal to inspection NARRATIVE EXTREMITY EXAM: Left hand?index finger?small puncture wound at distal pad of finger. No active bleeding, erythema or warmth noted. Neuro: COMMON NORMALS: patient oriented x3 SENSORIUM/ORIENTATION: Yes alert GAIT: Yes Normal gait present Skin: GENERAL SKIN EXAM: dry skin Procedures Foreign Body Removal Time Out Performed: yes Site: left and hand (index finger) Description of foreign body: needle Sedation/Analgesia: other (lidocaine 1%) Technique: removal with forceps Confirmed by:: direct visualization Complications: none Neurovascular: no change from pre-procedure Course Vital Signs: Vital signs: Vital Signs Temperature 97.9 F 09/13/22 21:21 Pulse Rate 68 09/13/22 23:06 Respiratory Rate 16 09/13/22 21:21 Blood Pressure 127/82 09/13/22 21:21 Pulse Oximetry 96 09/13/22 23:06 Oxygen Delivery Me thod Room Air 09/13/22 21:21 MDM - Extremity (Nontraumatic) Medical Decision Making Patient is a 77-year-old female comes to the ED with left index finger injury. Patient says she excellently stuck a sewing needle in her index finger of the left hand. She went to pull out the sewing needle and says it broke and she is concerned that a piece of the needle is still in her finger. She states her pain is mild. She does not have an updated tetanus. X-ray showed 7 mm metallic needle and plantar soft tissue of distal second digit. I used lidocaine 1% as local and then I was able to completely remove embedded foreign body with forceps. Patient tolerated procedure well and finger was irrigated extensively with normal saline and she was given updated tetanus here in the ED. She was stable for discharge home and sent with a prescription for Keflex. Follow-up with PCP in the next week for reevaluation. Return to ED precautions given. Patient understood and agreed with plan. Lab Data Radiology Impressions Hand X-Ray 09/13/22 21:35 IMPRESSION: 7 mm metallic needle noted within the plantar soft tissues of the distal 2nd digit. Discharge Plan Discharge Patient Disposition: Home Clinical Impression: Foreign body in skin of finger Qualifiers: Encounter type: initial encounter Qualified Code(s): S60.459A - Superficial foreign body of unspecified finger, initial encounter Condition: Stable Prescriptions: New cephalexin 500 mg capsule 500 mg PO Q6H 5 Days Qty: 20 0RF No Action Zyrtec 10 mg capsule 10 mg PO DAILY sumatriptan succinate [Imitrex] 50 mg tablet 50 mg PO Q2H PRN (Reason: migraine headache) Qty: 9 1RF Rx Instructions: do not exceed 4 doses per 24 hrs sertraline [Zoloft] 25 mg tablet 25 mg PO DAILY 90 Days Qty: 90 3RF levothyroxine 50 mcg tablet See Rx Instructions .ROUTE .COMPLEX Qty: 90 3RF Dose Instruction: TAKE 1 TABLET BY MOUTH DAILY Rx Instructions: TAKE 1 TABLET BY MOUTH DAILY bupropion HCl 150 mg tablet sustained-release 12 hr See Rx Instructions .ROUTE .COMPLEX 90 Days Qty: 90 3RF Dose Instruction: TAKE 1 TABLET BY MOUTH EVERY MORNING Rx Instructions: TAKE 1 TABLET BY MOUTH EVERY MORNING diphenhydramine HCl [Benadryl Allergy] 25 mg tablet 25 mg PO .hs aspirin 81 mg tablet,chewable 81 mg PO DAILY prednisone 50 mg tablet 50 mg PO .COMPLEX Qty: 3 0RF Rx Instructions: 50 mg orally at 12hrs, 6 hours, and [address] scan. Also take 50 mg of benadryl [address] scan. triamcinolone acetonide [Nasacort] 55 mcg aerosol,spray 2 spray intranasal DAILY Qty: 16.9 0RF Rx Instructions: administer into each nostril Discharge Orders: Discharge ED (Routine); Ordered 09/13/22 Ordered By: Hawk Martinez Referrals: Re Isaacs MD [Primary Care Provider] - Discharge Diet: Regular Discharge Activity: Increase activity as tolerated Patient Instructions: Soft Tissue Foreign Body (ED) Activity Restrictions/Additional Instructions: Follow-up with medical provider as directed in the next 5 to 7 days for reevaluation. Take medications as prescribed. Return to the ER or your medical provider if condition worsens. Please read and understand discharge instructions. Thank you for choosing [facility] for your healthcare needs today. Please realize this is an emergency room and that we are providing you with a medical screening exam and this may not be complete and all inclusive of all the testing and or work up that you may need to determine your ailment or severity of your illness. It is very important that you follow up as instructed or that you return to the Emergency Department should you have concerns or if your condition changes or worsens in any way. 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
[2022-09-13] MEDS: tetanus-dipt-pertussis 0.5 mL SDV IM (21:49)
[2022-09-13] MEDS: lidocaine 1% INJ 10 mL (per mL) 20 ML INJECTION (22:25)
[2022-09-13] MEDS: neomycin-poly-bacitracin oint 28 gm 1 APPLIC TOPICAL (23:04)
[2022-09-13 23:06] VITALS: PULSE 68; O2SAT 96
== END 2022-09-13 23:06 | disposition home or self-care (01) ==
PROVIDERS: Emergency Provider Physician Assistant; PCP Family Medicine
DX: S60.451A Superficial foreign body of left index finger, initial encounter (principal); W26.8XXA Contact with other sharp object(s), not elsewhere classified, initial encounter; Z79.82 Long term (current) use of aspirin; Z87.891 Personal history of nicotine dependence; Z85.72 Personal history of non-Hodgkin lymphomas; Z23 Encounter for immunization
CPT/HCPCS: 73130; 90471; 90715; 99283

== ENCOUNTER 2023-01-27 13:15 | Oncology outpatient (recurring) (ONCR) | payer MEDICARE, OTHER, SELFPAY ==
[2023-01-27 13:20] VITALS: BP 123/76; PULSE 75; RESP 16; TEMP 35.9; O2SAT 95
[2023-01-27 13:47] LABS: Basophils % 0.8 %; Eosinophils # 0.1 10^3/uL (0.0-0.8); Eosinophils % 1.9 %; Hematocrit 37.9 % (36-47); Lymphocytes # 1.1 10^3/uL (0.8-4.8); Lymphocytes % 20.5 %; Mean Corpuscular HGB Conc 33.8 g/dL (30-55); Mean Corpuscular Hemoglobin 32.5 pg (27-33); Mean Corpuscular Volume 96.2 fl (85-98); Mean Platelet Volume 9.5 fL (7.4-10.4); Monocytes # 0.5 10^3/uL (0.2-0.9); Monocytes % 9.7 %; Neutrophils # 3.46 10^3/uL (1.8-7.7); Neutrophils % 66.9 %; Nucleated Red Blood Cells % 0 %; Platelet Count 225 10^3/cmm (157-399); Red Blood Count 3.94 10^6/uL (3.85-5.65); Red Cell Distribution Width 13.1 % (12.1-15.1); White Blood Count 5.17 10^3/uL (3.29-11.43)
[2023-01-27 14:08] LABS: Alanine Aminotransferase 13 U/L (0-33); Albumin Level 3.8 g/dL (3.5-5.2); Alkaline Phosphatase 104 U/L (35-105); Anion Gap 11.6 (5-19); Aspartate Amino Transferase 18 U/L (0-32); Blood Urea Nitrogen 17 mg/dL (8-23); Calcium 9.2 mg/dL (8.5-10.5); Carbon Dioxide 27 mmol/L (22-29); Chloride 104 mmol/L (98-107); Globulin 2.5 g/dL (1.3-4.6); Glucose 78 mg/dL (65-115); Lactate Dehydrogenase 200 U/L (135-214); Osmolality Calculated 286 mOsm/kg (285-295); Potassium 4.6 mmol/L (3.5-5.1); Sodium 138 mmol/L (136-145); Total Bilirubin 0.5 mg/dL (0.15-1.2); Total Protein 6.3 g/dL (6.6-8.7)
== END 2023-02-03 23:59 | disposition home or self-care (01) ==
PROVIDERS: Nurse Practitioner Family; PCP Family Medicine; Visit Provider Internal Medicine Medical Oncology
DX: Z08 Encounter for follow-up examination after completed treatment for malignant neoplasm (principal); Z85.72 Personal history of non-Hodgkin lymphomas; Z92.21 Personal history of antineoplastic chemotherapy; Z87.891 Personal history of nicotine dependence
CPT/HCPCS: 36415; 80053; 83615; 85025; 99214

== ENCOUNTER → 2023-02-01 10:41 | Outpatient (BNVA) | payer MEDICARE, OTHER, SELFPAY | PROVIDERS: PCP Family Medicine; Visit Provider Emergency Medicine | DX: R69 Illness, unspecified (principal); J10.1 Influenza due to other identified influenza virus with other respiratory manifestations | CPT/HCPCS: 87400; 87426 ==

== ENCOUNTER 2023-02-06 11:04 | Outpatient (CLI) | payer MEDICARE, OTHER, SELFPAY ==
--- NOTE | 2023-02-06 12:00 | CT_ITS ---
WS: [id number] CT CHEST, ABDOMEN AND PELVIS WITH CONTRAST HISTORY: Restaging B cell lymphoma. Patient recently had the flu with cough. TECHNIQUE: Contiguous 5 mm axial imaging performed through the chest, abdomen and pelvis with IV cont rast, oral contrast has been provided. Coronal and sagittal reformats chest. Coronal and sagittal ref ormats through the abdomen and pelvis. All CT scans at [facility] use at least one of these d ose optimization techniques: automated exposure control; mA and/or kV adjustment per patient size (in cludes targeted exams where dose is matched to clinical indication); or iterative reconstruction. CONTRAST: Omnipaque 350; 100 mL IV. DLP: 1204.55 mGy.cm COMPARISON: 08/13/[address]: There are several new pulmonary opacifications since 08/13/2022. Groundglass opacification a t the LEFT lung base measures 3.2 x 2.4 cm. Smaller opacification in the posterior RIGHT lower lobe m easures 1.3 x 0.8 cm. Soft tissue nodularity measuring 1.1 x 0.5 cm along the RIGHT minor fissure. Th e remaining lungs are clear. No mediastinal or hilar adenopathy. Heart size is normal. Normal size ao rta. Normal sized pulmonary artery. No pericardial or pleural effusions. Small hiatal hernia. Abdomen CT: Normal size liver. Mild focal hepatic steatosis along the falciform ligament. Gallbladder is negative. Spleen is normal size. Normal pancreas. No bile duct dilatation. Normal pancreas. No re nal obstruction. Normal aorta. Normal RIGHT adrenal gland. Mild soft tissue thickening involving the LEFT adrenal gland continues to slowly improved. Again noted is a soft tissue mass associated with th e distal pancreas which may be redundant pancreatic tail. This is at the site of the previously descr ibed large lymphomatous mass on prior examinations including 08/25/2020 and 08/29/2020. No new lymphom atous masses. No ascites. No GI tract obstruction. Mild diffuse constipation. Normal appendix. Pelvic CT: Prior hysterectomy. No free fluid or adenopathy. IMPRESSION: 1. Bilateral pulmonary opacifications are new since the prior study. With the patient's recent acute illness these may be areas of focal pneumonitis. Consider 3-month chest CT follow-up to ensure resolu tion. 2. Stable appearance of the LEFT adrenal thickening and the soft tissue in the LEFT upper abdomen shimon se to the pancreatic tail. This is at the site of the previously described lymphomatous mass on prior studies. No progression in size as compared to prior studies. 3. No ascites.
[2023-02-06] MEDS: iohexol 350 mg/mL 500 mL Btl (per mL) IV (12:32)
[2023-02-06] MEDS: iohexol 350 mg/mL 500 mL Btl (per mL) PO (12:32)
== END 2023-02-06 11:05 | disposition home or self-care (01) ==
LOC: RAD 11:04
PROVIDERS: PCP Family Medicine; Visit Provider Nurse Practitioner Family
DX: C85.13 Unspecified B-cell lymphoma, intra-abdominal lymph nodes (principal); R91.8 Other nonspecific abnormal finding of lung field
CPT/HCPCS: 71260; 74177; Q9967

== ENCOUNTER → 2023-05-24 12:21 | Outpatient (BNVA) | payer MEDICARE, OTHER, SELFPAY | PROVIDERS: PCP Family Medicine; Visit Provider Nurse Practitioner Family | DX: U07.1 COVID-19 (principal) | CPT/HCPCS: 87426 ==

== ENCOUNTER 2023-07-28 12:27 | Oncology outpatient (recurring) (ONCR) | payer MEDICARE, OTHER, SELFPAY ==
[2023-07-28 12:43] LABS: Basophils % 0.8 %; Eosinophils # 0.1 10^3/uL (0.0-0.8); Eosinophils % 2.1 %; Hematocrit 41.3 % (36-47); Lymphocytes # 1.3 10^3/uL (0.8-4.8); Lymphocytes % 24.1 %; Mean Corpuscular HGB Conc 33.2 g/dL (30-55); Mean Corpuscular Hemoglobin 31.9 pg (27-33); Mean Platelet Volume 9.4 fL (7.4-10.4); Monocytes # 0.4 10^3/uL (0.2-0.9); Monocytes % 6.6 %; Neutrophils # 3.49 10^3/uL (1.8-7.7); Neutrophils % 66.2 %; Nucleated Red Blood Cells % 0 %; Platelet Count 257 10^3/cmm (157-399); Red Cell Distribution Width 13.5 % (12.1-15.1); White Blood Count 5.27 10^3/uL (3.29-11.43)
[2023-07-28 13:01] LABS: Alanine Aminotransferase 15 U/L (0-33); Alkaline Phosphatase 108 U/L (35-105); Anion Gap 11.3 (5-19); Aspartate Amino Transferase 26 U/L (0-32); Blood Urea Nitrogen 20 mg/dL (8-23); Calcium 9.5 mg/dL (8.5-10.5); Carbon Dioxide 29 mmol/L (22-29); Chloride 103 mmol/L (98-107); Globulin 3.3 g/dL (1.3-4.6); Glucose 120 mg/dL (65-115); Lactate Dehydrogenase 213 U/L (135-214); Osmolality Calculated 292 mOsm/kg (285-295); Potassium 4.3 mmol/L (3.5-5.1); Sodium 139 mmol/L (136-145); Total Bilirubin 0.6 mg/dL (0.15-1.2); Total Protein 7.3 g/dL (6.6-8.7)
== END 2023-08-04 23:59 | disposition home or self-care (01) ==
PROVIDERS: Nurse Practitioner Family; PCP Family Medicine; Visit Provider Internal Medicine Medical Oncology
DX: C85.13 Unspecified B-cell lymphoma, intra-abdominal lymph nodes; Z92.21 Personal history of antineoplastic chemotherapy; Z87.891 Personal history of nicotine dependence
CPT/HCPCS: 36415; 80053; 83615; 85025; 99213

== ENCOUNTER → 2023-12-03 08:15 | Outpatient (BNVA) | payer MEDICARE, OTHER, SELFPAY | PROVIDERS: PCP Family Medicine; Visit Provider Podiatrist Foot & Ankle Surgery | DX: M79.671 Pain in right foot (principal); M20.11 Hallux valgus (acquired), right foot; M20.41 Other hammer toe(s) (acquired), right foot; M19.071 Primary osteoarthritis, right ankle and foot | CPT/HCPCS: 73630; 99203 ==

== ENCOUNTER 2024-01-06 15:09 | Outpatient (CLI) | payer MEDICARE, OTHER, SELFPAY | END 2024-01-06 15:10 | disposition home or self-care (01) | LOC: SPT 15:11 | PROVIDERS: PCP Family Medicine; Visit Provider Podiatrist Foot & Ankle Surgery | DX: Z46.89 Encounter for fitting and adjustment of other specified devices (principal); M20.10 Hallux valgus (acquired), unspecified foot | CPT/HCPCS: L3030 ==

== ENCOUNTER 2024-02-03 13:06 | Oncology outpatient (recurring) (ONCR) | payer MEDICARE, OTHER, SELFPAY ==
[2024-02-03 13:36] LABS: Basophils % 0.9 %; Eosinophils # 0.2 10^3/uL (0.0-0.8); Hematocrit 38.6 % (36-47); Lymphocytes % 22.6 %; Mean Corpuscular HGB Conc 32.6 g/dL (30-55); Mean Corpuscular Hemoglobin 32.3 pg (27-33); Mean Platelet Volume 9.4 fL (7.4-10.4); Monocytes # 0.5 10^3/uL (0.2-0.9); Monocytes % 10.6 %; Neutrophils % 60.7 %; Nucleated Red Blood Cells % 0 %; Platelet Count 256 10^3/cmm (157-399); Red Cell Distribution Width 13.2 % (12.1-15.1); White Blood Count 4.61 10^3/uL (3.29-11.43)
[2024-02-03 13:53] LABS: Alanine Aminotransferase 14 U/L (0-33); Albumin Level 3.7 g/dL (3.5-5.2); Alkaline Phosphatase 106 U/L (35-105); Anion Gap 13.8 (5-19); Aspartate Amino Transferase 20 U/L (0-32); Blood Urea Nitrogen 18 mg/dL (8-23); Calcium 8.3 mg/dL (8.5-10.5); Carbon Dioxide 27 mmol/L (22-29); Chloride 105 mmol/L (98-107); Globulin 2.5 g/dL (1.3-4.6); Glucose 78 mg/dL (65-115); Lactate Dehydrogenase 256 U/L (135-214); Osmolality Calculated 293 mOsm/kg (285-295); Potassium 4.8 mmol/L (3.5-5.1); Sodium 141 mmol/L (136-145); Total Bilirubin 0.4 mg/dL (0.15-1.2); Total Protein 6.2 g/dL (6.6-8.7)
== END 2024-02-04 23:59 | disposition home or self-care (01) ==
PROVIDERS: Nurse Practitioner Family; PCP Family Medicine; Visit Provider Internal Medicine Hematology & Oncology
DX: C85.13 Unspecified B-cell lymphoma, intra-abdominal lymph nodes; Z92.21 Personal history of antineoplastic chemotherapy; Z87.891 Personal history of nicotine dependence
CPT/HCPCS: 36415; 80053; 83615; 85025; 99213

== ENCOUNTER 2024-02-10 12:04 | Outpatient (CLI) | payer MEDICARE, OTHER, SELFPAY ==
--- NOTE | 2024-02-10 13:00 | USCV_ITS ---
Karl Radha Age: 78 Gender: F : 1945 Exam Date: 02/10/2024 12:14 Ordering Phys: Chastity Oconnell VETERINARY RADIOLOGIST VETERINARY RADIOLOGIST Technologist: [place] [facility] [place] PROCEDURES: Venous duplex imaging was performed in only the right lower extremity. On the right side, the common femoral, superficial femoral, profunda femoral, popliteal, posterior tibial, greater saphenous veins and the peroneal trunk were identified and interrogated in the standard fashion. These veins were found to be easily compressible with spontaneous blood flow. No evidence of insufficiency or thrombus noted. FINDINGS: no dvt CONCLUSIONS No evidence of right lower extremity DVT. Colin Lucia MD (Electronically Signed) Final Date: 10 February 2024 16:14 S
== END 2024-02-10 12:05 | disposition home or self-care (01) ==
LOC: RAD 12:06
PROVIDERS: PCP Family Medicine; Visit Provider Nurse Practitioner
DX: I83.893 Varicose veins of bilateral lower extremities with other complications (principal); M79.604 Pain in right leg
CPT/HCPCS: 73562; 93971

== ENCOUNTER → 2024-02-15 13:18 | Outpatient (BNVA) | payer MEDICARE, OTHER, SELFPAY | PROVIDERS: PCP Family Medicine; Referring Provider Family Medicine; Visit Provider Internal Medicine Cardiovascular Disease | DX: R07.9 Chest pain, unspecified (principal); I49.9 Cardiac arrhythmia, unspecified; R94.31 Abnormal electrocardiogram [ECG] [EKG] | CPT/HCPCS: 93005 ==

== ENCOUNTER 2024-02-23 13:32 | Oncology outpatient (recurring) (ONCR) | payer MEDICARE, OTHER, SELFPAY ==
--- NOTE | 2024-02-23 13:30 | CT_ITS ---
WS: [id number] CT CHEST, ABDOMEN, AND PELVIS TECHNIQUE: Contrast-enhanced CT of the chest, abdomen, and pelvis with coronal and sagittal reformatt ed images. CLINICAL INFORMATION: surveillance COMPARISON: CT 02/06/23 DLP: 1221.[address] scans at [facility] use at least one of these dose optimization techniques: automated e xposure control; mA and/or kV adjustment per patient size (includes targeted exams where dose is matc hed to clinical indication); or iterative reconstruction. CT CHEST: Mild chronic emphysematous changes. No acute pulmonary infiltrates. No new suspicious pulmonary paren chymal abnormalities. No mediastinal or hilar lymphadenopathy. A few tiny thyroid nodules. Normal angel iber thoracic aorta. Proximal main pulmonary arteries are normal. No axillary lymphadenopathy. Modera te thoracic kyphosis. No acute chest findings. CT ABDOMEN AND PELVIS: Mild diffuse fatty infiltration of the liver. Gallbladder is contracted. Cholelithiasis. Normal christy l vein and splenic vein. Normal spleen. Small esophageal hiatal hernia. Adrenal glands are normal. Normal renal parenchymal enhancement with mild cortical scarring. No hydro nephrosis. Normal pancreatic parenchymal enhancement. Normal caliber abdominal aorta. Normal sigmoid colon. No evidence of high-grade small or large bowel obstruction. Tiny fat-containing umbilical hilton ia. No abdominal or pelvic lymphadenopathy. No inguinal lymphadenopathy. Disc space narrowing lumbar spine. CT/CT chest abdpel w/*[id number] IMPRESSION: 1. No acute findings in the chest abdomen or pelvis. 2. Previously described soft tissue thickening along the pancreatic tail in th e area of prior lymphomatous mass resection appears stable. 3. Prior hysterectomy. 4. No new findings in the chest. Mild chronic emphysematous changes. 5. Cholelithiasis
[2024-02-23] MEDS: iohexol 350 mg/mL 500 mL Btl (per mL) PO (15:05)
[2024-02-23] MEDS: iohexol 350 mg/mL 500 mL Btl (per mL) IV (15:07)
== END 2024-03-05 23:59 | disposition home or self-care (01) ==
LOC: ONCMED 13:32 → RAD 13:34 → ONCMED 02-24 11:46
PROVIDERS: PCP Family Medicine; Visit Provider Nurse Practitioner Family
DX: Z08 Encounter for follow-up examination after completed treatment for malignant neoplasm (principal); Z85.72 Personal history of non-Hodgkin lymphomas; Z92.21 Personal history of antineoplastic chemotherapy; Z87.891 Personal history of nicotine dependence; C85.13 Unspecified B-cell lymphoma, intra-abdominal lymph nodes
CPT/HCPCS: 71260; 74177

== ENCOUNTER 2024-03-15 07:53 | Outpatient (CLI) | payer MEDICARE, OTHER, SELFPAY ==
--- NOTE | 2024-03-15 07:45 | USCV_ITS ---
Radha Barajas Age: 78 Gender: F : 1945 Exam Date: 03/15/2024 08:14 Ordering Phys: Unique Rader MD ([email or web address]) Technologist: CT Exam Location: [facility] [place] Indication: syncope,chemo BP: 120 / 70 HR: 63 Rhythm: Sinus Technical Quality: Adequate MEASUREMENTS (Male / Female) Normal Values 2D ECHO LVOT Diameter 2.0 cm LV Ejection Fraction MOD 4C 53.9 % LV Ejection Fraction MOD 2C 64.6 % LV Ejection Fraction 2C AL 63.6 % LA Diameter 4.2 cm RA Systolic Volume 4C AL 36.5 ml RA Systolic Volume 4C MOD 36.5 ml LA Sys Volume AL 62.8 cm cubed LA Sys Volume Index AL 27.3 cm cubed/m squared Aorta at Sinotubular Diameter 2.1 cm M-MODE LA Ao Ratio MM 1.7 AV Cusp Separation MM 1.9 cm DOPPLER AV Peak Velocity 126.0 cm/s LVOT Peak Velocity 115.0 cm/s AV Area Cont Eq vti 3.0 cm squared AV Area Cont Eq pk 3.0 cm squared MV Peak Velocity 107.0 cm/s MV Area PHT 3.1 cm squared Mitral E to A Ratio 0.9 TV Peak Velocity 198.4 cm/s TR Peak Velocity 251.5 cm/s TR Peak Gradient 25.3 mmHg TR Mean Velocity 196.0 cm/s TR Mean Gradient 17.0 mmHg TR Velocity Time Integral 70.5 cm TV Peak E Velocity 86.0 cm/s PV Peak Velocity 125.0 cm/s FINDINGS Left Ventricle Normal left ventricular size, systolic function and wall thickness, with no regional wall motion abnormalities. Left ventricular ejection fraction is estimated at 60 %. Grade I/IV diastolic dysfunction (abnormal relaxation filling pattern), normal to mildly elevated filling pressures. Right Ventricle The right ventricle is normal in size and function. Right Atrium The right atrium is normal in size. Left Atrium Moderately increased left atrial size. Mitral Valve Moderately thickened mitral valve. No mitral valve stenosis. Moderate mitral valve regurgitation. Aortic Valve Structurally normal aortic valve without significant sclerosis or stenosis. There is no aortic regurgitation. Tricuspid Valve Structurally normal tricuspid valve without significant stenosis or regurgitation. Pulmonary artery systolic pressure is normal. Pulmonic Valve Structurally normal pulmonic valve without significant stenosis. There is no pulmonic regurgitation. Pericardium Normal pericardium without effusion. Aorta Normal ascending aorta dimension. IVC The inferior vena cava appears normal. CONCLUSIONS Normal left ventricular size, systolic function and wall thickness, with no regional wall motion abnormalities. Left ventricular ejection fraction is estimated at 60 %. Grade I/IV diastolic dysfunction (abnormal relaxation filling pattern), normal to mildly elevated filling pressures. Moderately increased left atrial size. Moderately thickened mitral valve. No mitral valve stenosis. Moderate mitral valve regurgitation. There is no pericardial effusion. Right atrial pressure is around 5 mm of mercury. Unique Rader MD (Electronically Signed) Final Date: 21 March 2024 20:34 S
== END 2024-03-15 07:54 | disposition home or self-care (01) ==
PROVIDERS: PCP Family Medicine; Visit Provider Internal Medicine Cardiovascular Disease
DX: I50.30 Unspecified diastolic (congestive) heart failure (principal); I51.7 Cardiomegaly; I34.89 Other nonrheumatic mitral valve disorders; I34.0 Nonrheumatic mitral (valve) insufficiency; R55 Syncope and collapse
CPT/HCPCS: 93306

== ENCOUNTER → 2024-04-04 10:57 | Outpatient (BNVA) | payer MEDICARE, OTHER, SELFPAY | PROVIDERS: PCP Family Medicine; Visit Provider Family Medicine | DX: I42.7 Cardiomyopathy due to drug and external agent (principal); T45.1X5A Adverse effect of antineoplastic and immunosuppressive drugs, initial encounter; E78.00 Pure hypercholesterolemia, unspecified; E03.9 Hypothyroidism, unspecified; R74.02 Elevation of levels of lactic acid dehydrogenase [LDH]; X58.XXXA Exposure to other specified factors, initial encounter | CPT/HCPCS: 80053; 80061; 84439; 84443; 84481 ==

== ENCOUNTER 2024-08-03 11:11 | Oncology outpatient (recurring) (ONCR) | payer MEDICARE, OTHER, SELFPAY ==
[2024-08-03 11:47] LABS: Basophils % 0.8 %; Eosinophils # 0.3 10^3/uL (0.0-0.8); Hematocrit 39.8 % (36-47); Lymphocytes # 1.2 10^3/uL (0.8-4.8); Lymphocytes % 22.4 %; Mean Corpuscular HGB Conc 32.9 g/dL (30-55); Mean Corpuscular Hemoglobin 31.9 pg (27-33); Mean Corpuscular Volume 96.8 fl (85-98); Mean Platelet Volume 9.4 fL (7.4-10.4); Monocytes # 0.5 10^3/uL (0.2-0.9); Monocytes % 8.8 %; Neutrophils # 3.17 10^3/uL (1.8-7.7); Neutrophils % 61.8 %; Nucleated Red Blood Cells % 0 %; Platelet Count 251 10^3/cmm (157-399); Red Blood Count 4.11 10^6/uL (3.85-5.65); Red Cell Distribution Width 13.3 % (12.1-15.1); White Blood Count 5.13 10^3/uL (3.29-11.43)
[2024-08-03 12:05] LABS: Alanine Aminotransferase 13 U/L (0-33); Albumin Level 3.6 g/dL (3.5-5.2); Alkaline Phosphatase 109 U/L (35-105); Anion Gap 13.3 (5-19); Aspartate Amino Transferase 18 U/L (0-32); Blood Urea Nitrogen 17 mg/dL (8-23); Calcium 8.7 mg/dL (8.5-10.5); Carbon Dioxide 24 mmol/L (22-29); Chloride 101 mmol/L (98-107); Glucose 89 mg/dL (65-115); Lactate Dehydrogenase 188 U/L (135-214); Osmolality Calculated 279 mOsm/kg (285-295); Potassium 4.3 mmol/L (3.5-5.1); Sodium 134 mmol/L (136-145); Total Bilirubin 0.5 mg/dL (0.15-1.2); Total Protein 6.6 g/dL (6.6-8.7)
== END 2024-08-03 23:59 | disposition home or self-care (01) ==
PROVIDERS: PCP Family Medicine; Visit Provider Nurse Practitioner Family
DX: Z08 Encounter for follow-up examination after completed treatment for malignant neoplasm (principal); Z85.72 Personal history of non-Hodgkin lymphomas; Z92.21 Personal history of antineoplastic chemotherapy; Z87.891 Personal history of nicotine dependence
CPT/HCPCS: 36415; 80053; 83615; 85025; 99213

== ENCOUNTER → 2024-11-23 14:25 | Outpatient (BNVA) | payer MEDICARE, OTHER, SELFPAY | PROVIDERS: PCP Family Medicine; Visit Provider Internal Medicine Cardiovascular Disease | DX: I47.10 Supraventricular tachycardia, unspecified (principal); T45.1X5A Adverse effect of antineoplastic and immunosuppressive drugs, initial encounter; I42.7 Cardiomyopathy due to drug and external agent; I34.0 Nonrheumatic mitral (valve) insufficiency; J43.9 Emphysema, unspecified; Z87.891 Personal history of nicotine dependence | CPT/HCPCS: 99214 ==

== ENCOUNTER 2025-01-26 09:55 | Outpatient (CLI) | payer MEDICARE, OTHER, SELFPAY ==
--- NOTE | 2025-01-26 10:45 | CTR_ITS ---
PROCEDURE INFORMATION: Exam: CT Chest With Contrast; Diagnostic Exam date and time: 01/26/2025 11:38 AM Age: 79 years old Clinical indication: Condition or disease; Other: B-cell lymphoma; Prior surgery; Surgery date: 6+ months; Surgery type: Hyst, port in/out TECHNIQUE: Imaging protocol: Diagnostic computed tomography of the chest with contrast. Radiation optimization: All CT scans at this facility use at least one of these dose optimization techniques: automated exposure control; mA and/or kV adjustment per patient size (includes targeted exams where dose is matched to clinical indication); or iterative reconstruction. Contrast material: OMNI 350; Contrast volume: 100 ml; Contrast route: INTRAVENOUS (IV); COMPARISON: CT chest abdpel w/*[id number] 02/23/2024 3:12 PM RADIATION DOSE METRICS: Total DLP (mGy-cm): 1259.95 FINDINGS: Lungs: Unremarkable. No consolidation. No masses. Pleural spaces: Unremarkable. No pneumothorax. No pleural effusion. Heart: Unremarkable. No cardiomegaly. No pericardial effusion. Lymph nodes: Unremarkable. No enlarged lymph nodes. Vasculature: Unremarkable. No aortic aneurysm. Bones/joints: Unremarkable. No acute fracture. Soft tissues: Unremarkable. PROCEDURE INFORMATION: Exam: CT Abdomen And Pelvis With Contrast Exam date and time: 01/26/2025 11:38 AM Age: 79 years old Clinical indication: Condition or disease; Other: B-cell lymphoma; Prior surgery; Surgery date: 6+ months; Surgery type: Hyst, port in/out TECHNIQUE: Imaging protocol: Computed tomography of the abdomen and pelvis with contrast. Radiation optimization: All CT scans at this facility use at least one of these dose optimization techniques: automated exposure control; mA and/or kV adjustment per patient size (includes targeted exams where dose is matched to clinical indication); or iterative reconstruction. Contrast material: OMNI 350; Contrast volume: 100 ml; Contrast route: INTRAVENOUS (IV); COMPARISON: CT chest abdpel w/*[id number] 02/23/2024 3:12 PM RADIATION DOSE METRICS: Total DLP (mGy-cm): 1259.95 FINDINGS: Liver: Normal. No mass. Gallbladder and biliary ducts: Cholelithiasis. Pancreas: Normal. No ductal dilation. Spleen: Normal. No splenomegaly. Adrenal glands: Normal. No mass. Kidneys and ureters: Normal. No hydronephrosis. Stomach and bowel: Unremarkable. No obstruction. No mucosal thickening. Appendix: No evidence of appendicitis. Intraperitoneal space: Unremarkable. No free air. No significant fluid collection. Vasculature: Unremarkable. No abdominal aortic aneurysm. Lymph nodes: Unremarkable. No enlarged lymph nodes. Urinary bladder: Unremarkable as visualized. Reproductive: Unremarkable as visualized. Bones/joints: Unremarkable. No acute fracture. Soft tissues: Unremarkable. CT/CT chest abdpel w/*[id number] IMPRESSION: No evidence of mass or lymphadenopathy. IMPRESSION: No evidence of mass or lymphadenopathy. Continued resolution of the area of prior resection of a lymphomatous mass of the pancreatic tail.
[2025-01-26 11:12] LABS: Blood Urea Nitrogen 17 mg/dL (8-23)
[2025-01-26] MEDS: iohexol 350 mg/mL 500 mL Btl (per mL) PO (11:51)
[2025-01-26] MEDS: iohexol 350 mg/mL 500 mL Btl (per mL) IV (11:51)
== END 2025-01-26 09:56 | disposition home or self-care (01) ==
LOC: RAD 09:56
PROVIDERS: PCP Family Medicine; Visit Provider Internal Medicine
DX: Z85.72 Personal history of non-Hodgkin lymphomas (principal); K80.71 Calculus of gallbladder and bile duct without cholecystitis with obstruction
CPT/HCPCS: 71260; 74177; 82565; 84520

== ENCOUNTER 2025-01-29 16:06 | Emergency (ER) | payer MEDICARE, OTHER, SELFPAY ==
--- NOTE | 2025-01-29 16:08 | XRR_ITS ---
PROCEDURE INFORMATION: Exam: XR Chest Exam date and time: 01/29/2025 4:44 PM Age: 79 years old Clinical indication: Pain; Chest pressure; Prior surgery; Surgery date: 6+ months; Surgery type: Port; Additional info: Cp TECHNIQUE: Imaging protocol: Radiologic exam of the chest. Views: 1 view. COMPARISON: CT chest abdpel w/*[id number] 01/26/2025 11:38 AM FINDINGS: Lungs: No pulmonary consolidation. Pleural spaces: No pleural effusion or pneumothorax. Heart/Mediastinum: Heart size is within normal limits. Bones/joints: No acute osseous abnormalities are seen. XR/XR chest 1V portable [id number] IMPRESSION: No acute cardiopulmonary disease.
--- NOTE | 2025-01-29 16:08 | ECG_ITS ---
Ecelles Carson Test Date: 2025-01-29 Pat Name: Radha Barajas Department: Room: Gender: Female Unhairer: : 1945 Requested By: Harriet Nguyen Order Number: [id number] Reading MD: DEBBIE FREGOSO Measurements Intervals [place] Rate: 65 P: 34 VT: 188 QRS: 7 QRSD: 94 T: 48 QT: 389 QTc: 405 Interpretive Statements SINUS RHYTHM SEPTAL MYOCARDIAL INFARCTION , PROBABLY OLD [40+ ms Q WAVE IN V1/V2] Compared to ECG 02/15/2024 13:37:02 Myocardial infarct finding now present Poor R-wave progression no longer present Electronically Signed On 01-29-2025 22:23:16 CDT by DEBBIE FREGOSO [email or web address]
[2025-01-29 16:09] VITALS: BP 160/84; PULSE 65; RESP 18; TEMP 36.5; O2SAT 98
--- OUTSIDE RECORDS SUMMARY | 2025-01-29 16:11 | XMS_ITS | Encounter Summary ---
Author Organization [facility] Address [address] [place] [address] Care Team Providers Care Ibm Websphere Portal Developer Name Role Phone Unavailable Primary Care Provider Unavailabl e Encounter Details Date Type Department Care Team (Latest Contact Info) Description 10/01/1998 Outpatient Historical [facility] Family Medicine- [address] [place] [address] Mariela Handy NO ADDRESS ON FILE Migraine, unspecified, without mention of intractable migraine without mention of status migrainosus (Primary Dx); Unspecified menopausal and postmenopausal disorder; Pain in joint, pelvic region and thigh; Family history of other blood disorders Social History Tobacco Use Types Packs/Day Years Used Date Smoking Tobacco: Never Assessed Comments Unknown Sex and Gender Information Value Date Recorded Sex Assigned at Not on file Legal Sex Female 5:19 AM [employer] Gender Identity Not on file Sexual Orientation Not on file documented as of this encounter Plan of Treatment Not on file documented as of this encounter Visit Diagnoses Diagnosis Migraine, unspecified, without mention of intractable migraine without mention of status migrainosus- Primary Unspecified menopausal and postmenopausal disorder Pain in joint, pelvic region and thigh Family history of other blood disorders documented in this encounter
--- OUTSIDE RECORDS SUMMARY | 2025-01-29 16:11 | XMS_ITS | Encounter Summary ---
Author Organization [facility] Address [address] [place] [address] Care Team Providers Care Proposal Director Name Role Phone Unavailable Primary Care Provider Unavailabl e Encounter Details Date Type Department Care Team (Latest Contact Info) Description 11/21/1999 Outpatient Historical [facility] Medicine [address] [address] Mariela Handy NO ADDRESS ON FILE Other specified menopausal and postmenopausal disorder (Primary Dx); Migraine, unspecified, without mention of intractable migraine without mention of status migrainosus Social History Tobacco Use Types Packs/Day Years Used Date Smoking Tobacco: Never Assessed Comments Unknown Sex and Gender Information Value Date Recorded Sex Assigned at Not on file 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
--- OUTSIDE RECORDS SUMMARY | 2025-01-29 16:12 | XMS_ITS | Encounter Summary ---
Author Organization [facility] Address [address] [place] [address] Care Team Providers Care Director Automotive Name Role Phone Unavailable Primary Care Provider Unavailabl e Encounter Details Date Type Department Care Team (Latest Contact Info) Description 01/31/2002 Outpatient Historical [facility] Medicine [address] [phone] Winter Harris MD DIS OF BILIARY TRACT NEC (Primary Dx) Social History Tobacco Use Types Packs/Day Years Used Date Smoking Tobacco: Never Assessed Comments Unknown Sex and Gender Information Value Date Recorded Sex Assigned at Not on file 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
--- OUTSIDE RECORDS SUMMARY | 2025-01-29 16:12 | XMS_ITS | Encounter Summary ---
Author Organization [facility] Address [address] [place] [address] Care Team Providers Care Music Education Adjunct Professor Name Role Phone Unavailable Primary Care Provider Unavailabl e Encounter Details Date Type Department Care Team (Latest Contact Info) Description 03/27/1999 Outpatient Historical [facility] Medicine [address] [phone] Mariela Handy NO ADDRESS ON FILE Migraine, unspecified, with intractable migraine, so stated, without mention of status migrainosus (Primary Dx); Other specified menopausal and postmenopausal disorder; Screening for malignant neoplasm of the rectum Social History Tobacco Use Types Packs/Day Years Used Date Smoking Tobacco: Never Assessed Comments Unknown Sex and Gender Information Value Date Recorded Sex Assigned at Not on file 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
--- OUTSIDE RECORDS SUMMARY | 2025-01-29 16:12 | XMS_ITS | Clinical Summary ---
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
--- OUTSIDE RECORDS SUMMARY | 2025-01-29 16:12 | XMS_ITS | Encounter Summary ---
Author Organization [facility] Address [address] [place] [address] Care Team Providers Care Store Operations Associate Name Role Phone Unavailable Primary Care Provider Unavailabl e Encounter Details Date Type Department Care Team (Latest Contact Info) Description 01/10/[address] 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
[2025-01-29 16:41] VITALS: BP 155/91; PULSE 62; RESP 15; O2SAT 98
--- NOTE | 2025-01-29 16:41 | W.ED.GENADLT ---
HPI - General Adult General: Chief complaint: General Medical Stated complaint: BP erratic, pulse high, cp Time Seen by Provider: 01/29/25 16:19 Source: patient Mode of arrival: ambulatory Limitations: no limitations History of Present Illness: 79-year-old female states over the last 3 days she has been having blood pressures she states it seems to spike in lower also some erratic heart rate as well. Blood pressure here is 155/91 states the lowest its gotten has been in the 90s. Her heart rate here is 67. She states that symptoms started after CT scan with contrast on . States that today at 1 PM she started having some mild chest pain that is since completely resolved. She denies any shortness of breath denies any fever. Associated symptoms: Reports chest pain Related Data Home Medications ?Medication ?Instructions ?Recorded ?Confirmed cetirizine 10 mg capsule (Zyrtec) 10 mg PO DAILY Allergy Symptoms 12/25/21 11/23/24 B-complex with vitamin C 1 cap PO DAILY 02/15/24 11/23/24 aspirin 81 mg chewable tablet 325 mg PO DAILY 02/15/24 11/23/24 calcium 600 mg (as cap PO DAILY 02/15/24 11/23/24 carbonate)-vitamin D3 12.5 mcg (500 unit) capsule (Calcium with Vit D3) docusate sodium 100 mg capsule 200 mg PO BID 02/15/24 11/23/24 flaxseed oil 1,000 mg capsule 1,000 mg PO DAILY 02/15/24 11/23/24 glucosamine HCl 500 mg tablet 500 mg PO DAILY 02/15/24 11/23/24 multivitamin (Daily Multi-Vitamin 1 tab PO DAILY 02/15/24 11/23/24 tablet) psyllium husk 0.4 gram capsule 1.2 g PO DAILY 02/15/24 11/23/24 (Daily Fiber) diphenhydramine HCl 25 mg tablet 25 mg PO .hs PRN 11/23/24 11/23/24 (Benadryl Allergy) Previous Rx's ?Medication ?Instructions ?Recorded triamcinolone acetonide 55 mcg 2 spray intranasal DAILY #16.9 mL 03/15/22 nasal spray aerosol (Nasacort) custom inserts #1 ea 12/03/23 bupropion HCl 200 mg tablet,12 hr See Rx Instructions .Route 04/04/24 sustained-release .COMPLEX 90 days #90 tabs levothyroxine 50 mcg tablet See Rx Instructions .Route 04/04/24 .COMPLEX #90 tabs sertraline 25 mg tablet (Zoloft) 25 mg PO DAILY 90 days #90 tabs 04/04/24 sumatriptan succinate 50 mg tablet 50 mg PO Q2H PRN migraine headache 04/04/24 (Imitrex) #9 tabs metoprolol succinate 25 mg 12.5 mg (1/2 x 25 mg) PO .PRN 11/23/24 tablet,extended release 24 hr palpitations #30 tabs prednisone 50 mg tablet 50 mg PO .COMPLEX #3 tabs 01/24/25 Allergies Allergy/AdvReac Type Severity Reaction Status Date / Time influenza virus vacc Allergy Unknown Unknown Verified 11/23/24 14:44 trivalent, split (From Fluzone) Iodinated Contrast Media Allergy Unknown IVP Dye Verified 11/23/24 14:44 Review of Systems Card: Reports: chest pain PFSH ED PFSH: Medical History High grade B-cell lymphoma Chronic migraine GERD (gastroesophageal reflux disease) Hypothyroidism Depression Varicose veins of bilateral lower extremities with other complications SVT (supraventricular tachycardia) Surgical History H/O hysterectomy with unilateral oophorectomy History of removal of Port-a-Cath 07/2021 History of placement of ear tubes History of sinus surgery S/P tonsillectomy H/O oral surgery Family History Other Congestive heart failure (CHF) Dementia Depression Stroke Social History Smoking and tobacco/nicotine status: former use of tobacco/nicotine Quit status (tobacco/nicotine): has quit using Year quit tobacco: 2004 Former quit date comment: off and on 37 years Second hand smoke exposure: No Alcohol intake: current Alcohol intake frequency: holidays/special occasions only Substance/Drug Use: never Lives independently: Yes Household members: family Housing: House service: No Current gender identity: Female Special brent needs: No Female Reproductive History: Spontaneous abortions: No Physical Exam Const: COMMON NORMALS: no acute distress, patient oriented x3 and healthy appearing HENMT: COMMON NORMALS: normocephalic and atraumatic HEAD & SCALP: normocephalic and atraumatic Neck/C-Spine: COMMON NORMALS: full ROM and supple Chest: COMMONS NORMALS: normal inspection of the chest Resp: COMMON NORMALS: normal respiratory effort, No retractions, No use of accessory muscles and clear to auscultation bilaterally AUSCULTATION: clear to auscultation bilaterally Cardio: COMMON NORMALS: regular rate, regular rhythm and No murmurs present (Cardio) RATE: regular rate RHYTHM: regular rhythm GI: COMMON NORMALS: Normal to inspection, nondistended, normoactive bowel sounds present, Soft to palpation, non-tender and no masses PALPATION: Yes Soft to palpation Extremity: COMMON NORMALS: normal to inspection and full ROM Neuro: COMMON NORMALS: patient oriented x3, moves all extremities and no focal motor deficits Psych: COMMON NORMALS: mental status grossly normal, Normal thought process present and cooperative THOUGHT PROCESS: Normal thought process present Skin: COMMON NORMALS: no rashes or lesions noted and no wounds GENERAL SKIN EXAM: no rashes or lesions noted Course Vital Signs: Vital signs: Vital Signs Temperature 97.7 F 01/29/25 16:09 Pulse Rate 62 01/29/25 16:41 Respiratory Rate 15 01/29/25 16:41 Blood Pressure 155/91 01/29/25 16:41 Pulse Oximetry 98 01/29/25 16:41 Oxygen Delivery Me thod Room Air 01/29/25 16:41 MDM - General Adult Medical Decision Making Patient presents here with mild chest pain related to atypical in nature. She has been chest pain-free here differential includes pulm emboli, ACS. Patient has no shortness of breath no signs of PE. Patient's troponin here is negative no signs of ACS. EKG here shows normal sinus rhythm heart rate [address] elevation QRS 94 QTc 400. I did review her chest x-ray and interpret with no acute abnormality. Blood work here was normal with normal troponin. Heart score is at 2. Patient's wanting go home I feel she is stable for discharge after first troponin at this time as well. She is to follow-up with her PCP she is return if worsening I did go over all her labs EKG and imaging with her and she understands agrees to plan. Medical Records I reviewed the patient's medical records. Lab Data I reviewed the patient's lab results. 01/29/25 16:44 01/29/25 16:44 Laboratory Results WBC 6.43 10^3/uL (3.29-11.43) 01/29/25 16:44 RBC 4.18 10^6/uL (3.85-5.65) 01/29/25 16:44 Hgb 13.10 g/dL (11.27-16.99) 01/29/25 16:44 Hct 40.9 % (36-47) 01/29/25 16:44 MCV 97.8 fl (85-98) 01/29/25 16:44 MCH 31.3 pg (27-33) 01/29/25 16:44 MCHC 32.0 g/dL (30-55) 01/29/25 16:44 RDW 14.0 % (12.1-15.1) 01/29/25 16:44 Plt Count 279 10^3/cmm (157-399) 01/29/25 16:44 MPV 9.7 fL (7.4-10.4) 01/29/25 16:44 Neut % (Auto) 56.9 % 01/29/25 16:44 Lymph % (Auto) 28.1 % 01/29/25 16:44 [place] % (Auto) 10.9 % 01/29/25 16:44 Eos % (Auto) 3.3 % 01/29/25 16:44 Baso % (Auto) 0.6 % 01/29/25 16:44 Neut # (Auto) 3.66 10^3/uL (1.8-7.7) 01/29/25 16:44 Lymph # (Auto) 1.8 10^3/uL (0.8-4.8) 01/29/25 16:44 [place] # (Auto) 0.7 10^3/uL (0.2-0.9) 01/29/25 16:44 Eos # (Auto) 0.2 10^3/uL (0.0-0.8) 01/29/25 16:44 Baso # (Auto) 0.0 10^3/uL (0.0-0.1) 01/29/25 16:44 Nucleated RBC % (auto) 0 % 01/29/25 16:44 Nucleated RBCs # 0.0 /100WBC 01/29/25 16:44 PT 12.40 SECONDS (12.1-14.9) 01/29/25 16:44 INR 0.86 (0.8-1.2) 01/29/25 16:44 Sodium 140 mmol/L (136-145) 01/29/25 16:44 Potassium 4.1 mmol/L (3.5-5.1) 01/29/25 16:44 Chloride 104 mmol/L (98-107) 01/29/25 16:44 Carbon Dioxide 25 mmol/L (22-29) 01/29/25 16:44 Anion Gap 15.1 (5-19) 01/29/25 16:44 BUN 17 mg/dL (8-23) 01/29/25 16:44 Creatinine 1.0 mg/dL (0.5-0.9) H 01/29/25 16:44 GFR Calculation Not Reportable 01/29/25 16:44 Glucose 71 mg/dL (65-115) 01/29/25 16:44 Calculated Osmolality 290 mOsm/kg (285-295) 01/29/25 16:44 Calcium 8.7 mg/dL (8.5-10.5) 01/29/25 16:44 Total Bilirubin 0.4 mg/dL (0.15-1.2) 01/29/25 16:44 AST 19 U/L (0-32) 01/29/25 16:44 ALT 16 U/L (0-33) 01/29/25 16:44 Alkaline Phosphatase 120 U/L (35-105) H 01/29/25 16:44 Troponin T Baseline < 6 ng/L (0-10) 01/29/25 16:44 Total Protein 6.7 g/dL (6.6-8.7) 01/29/25 16:44 Albumin 3.9 g/dL (3.5-5.2) 01/29/25 16:44 Globulin 2.8 g/dL (1.3-4.6) 01/29/25 16:44 Lipase 47 U/L (13-60) 01/29/25 16:44 All radiology interpretation(s) finalized by discharge EKG Data EKG 1: I personally reviewed and interpreted this EKG as follows: EKG interpretation date: 01/29/25 EKG interpretation time: 16:10 Interpretation: nsr hr [address] elevation qrs 94 qtc 400 Discharge Plan Discharge Patient Disposition: Home Clinical Impression: Atypical chest pain Condition: Stable Prescriptions: No Action Zyrtec 10 mg capsule 10 mg PO DAILY bupropion HCl 200 mg tablet sustained-release 12 hr See Rx Instructions .ROUTE .COMPLEX 90 Days Qty: 90 3RF Dose Instruction: TAKE 1 TABLET BY MOUTH EVERY MORNING Rx Instructions: TAKE 1 TABLET BY MOUTH EVERY MORNING levothyroxine 50 mcg tablet See Rx Instructions .ROUTE .COMPLEX Qty: 90 3RF Dose Instruction: TAKE 1 TABLET BY MOUTH DAILY Rx Instructions: TAKE 1 TABLET BY MOUTH DAILY sertraline [Zoloft] 25 mg tablet 25 mg PO DAILY 90 Days Qty: 90 3RF sumatriptan succinate [Imitrex] 50 mg tablet 50 mg PO Q2H PRN (Reason: migraine headache) Qty: 9 1RF Rx Instructions: do not exceed 4 doses per 24 hrs (DME) custom inserts See Rx Instructions .Route .MEDSUPPLY Qty: 1 0RF Rx Instructions: As directed to sole supports multivitamin [Daily Multi-Vitamin] Tablet 1 tab PO DAILY flaxseed oil 1,000 mg capsule 1,000 mg PO DAILY Rx Instructions: administer with a meal docusate sodium 100 mg capsule 200 mg PO BID B-complex with vitamin C Capsule 1 cap PO DAILY glucosamine HCl 500 mg tablet 500 mg PO DAILY Rx Instructions: administer with a meal calcium carbonate-vitamin D3 [Calcium 600 with Vitamin D3] 600 mg-12.5 mcg (500 unit) capsule PO DAILY psyllium husk [Daily Fiber] 0.4 gram capsule 1.2 g PO DAILY aspirin 81 mg tablet,chewable 325 mg PO DAILY diphenhydramine HCl [Benadryl Allergy] 25 mg tablet 25 mg PO .hs PRN triamcinolone acetonide [Nasacort] 55 mcg aerosol,spray 2 spray intranasal DAILY Qty: 16.9 0RF Rx Instructions: administer into each nostril metoprolol succinate 25 mg tablet extended release 24 hr 12.5 mg PO .PRN Qty: 30 3RF prednisone 50 mg tablet 50 mg PO .COMPLEX Qty: 3 0RF Rx Instructions: 50 mg orally at 12hrs, 6 hours, and [address] scan. Also take 50 mg of benadryl [address] scan. Discharge Orders: Discharge ED (Routine); Ordered 01/29/25 Ordered By: Harriet Nguyen Referrals: Re Isaacs MD [Primary Care Provider, [facility]] - 4-7 days Discharge Diet: Advance as tolerated Discharge Activity: Resume usual activity Patient Instructions: Chest Pain (ED) Print Language: Samoan Coding Level of Care Code ED Portfolio Specialist for Ladonna Gibson
[2025-01-29 16:54] LABS: Hematocrit 40.9 % (36-47); Hemoglobin 13.10 g/dL (11.27-16.99); Mean Corpuscular HGB Conc 32.0 g/dL (30-55); Mean Corpuscular Hemoglobin 31.3 pg (27-33); Mean Corpuscular Volume 97.8 fl (85-98); Nucleated Red Blood Cells % 0 %; Platelet Count 279 10^3/cmm (157-399); Red Blood Count 4.18 10^6/uL (3.85-5.65); White Blood Count 6.43 10^3/uL (3.29-11.43)
[2025-01-29 17:08] LABS: INR 0.86 (0.8-1.2); Prothrombin Time 12.40 SECONDS (12.1-14.9)
[2025-01-29 17:18] LABS: Troponin(5th) Baseline < 6 ng/L (0-10)
[2025-01-29 17:19] LABS: Alanine Aminotransferase 16 U/L (0-33); Albumin Level 3.9 g/dL (3.5-5.2); Alkaline Phosphatase 120 U/L (35-105); Anion Gap 15.1 (5-19); Aspartate Amino Transferase 19 U/L (0-32); Blood Urea Nitrogen 17 mg/dL (8-23); Calcium 8.7 mg/dL (8.5-10.5); Carbon Dioxide 25 mmol/L (22-29); Chloride 104 mmol/L (98-107); Creatinine Clr Calc Pharmacy 59.2007; Globulin 2.8 g/dL (1.3-4.6); Glucose 71 mg/dL (65-115); Lipase 47 U/L (13-60); Osmolality Calculated 290 mOsm/kg (285-295); Potassium 4.1 mmol/L (3.5-5.1); Sodium 140 mmol/L (136-145); Total Protein 6.7 g/dL (6.6-8.7)
[2025-01-29 17:50] VITALS: BP 148/77; PULSE 60; RESP 12; O2SAT 100
== END 2025-01-29 17:52 | disposition home or self-care (01) ==
PROVIDERS: Emergency Provider Emergency Medicine; PCP Family Medicine
DX: R07.89 Other chest pain (principal); Z79.82 Long term (current) use of aspirin; Z87.891 Personal history of nicotine dependence
CPT/HCPCS: 71045; 80053; 83690; 84484; 85025; 85610; 93005; 99285; J9999

== ENCOUNTER 2025-02-02 12:49 | Oncology outpatient (recurring) (ONCR) | payer MEDICARE, OTHER, SELFPAY ==
[2025-02-02 13:23] LABS: Hematocrit 41.0 % (36-47); Hemoglobin 13.50 g/dL (11.27-16.99); Mean Corpuscular HGB Conc 32.9 g/dL (30-55); Mean Corpuscular Hemoglobin 32.3 pg (27-33); Mean Corpuscular Volume 98.1 fl (85-98); Nucleated Red Blood Cells % 0 %; Platelet Count 281 10^3/cmm (157-399); Red Blood Count 4.18 10^6/uL (3.85-5.65); White Blood Count 5.76 10^3/uL (3.29-11.43)
[2025-02-02 13:43] LABS: Alanine Aminotransferase 16 U/L (0-33); Albumin Level 3.9 g/dL (3.5-5.2); Alkaline Phosphatase 133 U/L (35-105); Anion Gap 16.6 (5-19); Aspartate Amino Transferase 26 U/L (0-32); Blood Urea Nitrogen 17 mg/dL (8-23); Calcium 9.1 mg/dL (8.5-10.5); Carbon Dioxide 25 mmol/L (22-29); Chloride 102 mmol/L (98-107); Creatinine Clr Calc Pharmacy 66.9782; Globulin 2.9 g/dL (1.3-4.6); Glucose 110 mg/dL (65-115); Osmolality Calculated 290 mOsm/kg (285-295); Potassium 4.6 mmol/L (3.5-5.1); Sodium 139 mmol/L (136-145); Total Protein 6.8 g/dL (6.6-8.7)
== END 2025-02-03 23:59 | disposition home or self-care (01) ==
PROVIDERS: PCP Family Medicine; Visit Provider Internal Medicine
DX: Z08 Encounter for follow-up examination after completed treatment for malignant neoplasm (principal); Z85.72 Personal history of non-Hodgkin lymphomas; Z92.21 Personal history of antineoplastic chemotherapy; Z87.891 Personal history of nicotine dependence
CPT/HCPCS: 36415; 80053; 85025; 99213

== ENCOUNTER → 2025-03-15 14:21 | Outpatient (BNVA) | payer MEDICARE, OTHER, SELFPAY | PROVIDERS: PCP Family Medicine; Visit Provider Internal Medicine Cardiovascular Disease | DX: I42.7 Cardiomyopathy due to drug and external agent (principal); T45.1X5A Adverse effect of antineoplastic and immunosuppressive drugs, initial encounter; F32.A Depression, unspecified | CPT/HCPCS: 99214 ==

== ENCOUNTER → 2025-04-04 08:45 | Outpatient (BNVA) | payer MEDICARE, OTHER, SELFPAY | PROVIDERS: PCP Family Medicine; Visit Provider Family Medicine | DX: E03.9 Hypothyroidism, unspecified (principal); F98.8 Other specified behavioral and emotional disorders with onset usually occurring in childhood and adolescence; E78.00 Pure hypercholesterolemia, unspecified | CPT/HCPCS: 80061; 84439; 84443; 84481 ==